=== PATIENT | male | born 1935 | race Hispanic/Latino ===

== ENCOUNTER 2017-02-28 15:35 | Inpatient (IN) | payer MEDICARE, MEDICAID ==
--- NOTE | 2017-02-28 16:15 | ED PDOC ---
Arrival/HPI - General Chief Complaint: Lower Extremity Problem/Injury Time Seen by Provider: 02/28/17 15:49 Historian: Patient, Spouse - History of Present Illness Narrative History of Present Illness (Text): 02/28/17 16:17 81-year-old male with past medical history of A. fib and TIA, presents with painless atraumtic bilateral leg swelling for the past one month as well as one- week history of atraumatic right knee pain and swelling. Patient reports no SOB , dyspnea, orthopnea, or chest pain. Otherwise: (-) diaphoresis, (-) recent travel / hospitalization, (-) h/o DVT, (-) h/o gout, (-) fever, (-) dizziness, ( -) syncope, (-) nausea, (-) vomiting, (-) calf swelling/pain, (-) neuro deficits. 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) - Renal Hx Renal Failure: Yes - Endocrine/Metabolic Hx Hypothyroidism: Yes - Hematological/Oncological Hx Blood Disorders: Yes (SHINGLES) Hx Shingles: Yes - Integumentary Hx Dermatological Disorder: Yes (MULTIPLE HEMATOMA AND BRUISING FROM USING BLOOD THINNERS) - Musculoskeletal/Rheumatological Hx Falls: No - Gastrointestinal Hx Gastrointestinal Disorders: No - Genitourinary/Gynecological Hx Genitourinary Disorders: Yes Hx Prostate Problems: Yes (BPH PHIMOSIS 03-28-24) Hx Urinary Tract Infection: Yes - Psychiatric Hx Psychophysiologic Disorder: (INSOMNIA) Hx Substance Use: No - Surgical History Hx Coronary Stent: Yes Hx Open Heart Surgery: Yes Hx Orthopedic Surgery: Yes - Anesthesia Hx Anesthesia Reactions: No Hx Malignant Hyperthermia: No - Suicidal Assessment Feels Threatened In Home Enviroment: No Family/Social History - Physician Review Nursing Documentation Reviewed: Yes Family/Social History: No Known Family HX Smoking Status: Never Smoked Hx Alcohol Use: Yes (social) Hx Substance Use: No Allergies/Home Meds Allergies/Adverse Reactions: Allergies No Known Allergies Allergy (Verified 12/21/15 16:34) Home Medications: Home Meds Medication Instructions Recorded Confirmed Furosemide [Lasix] 40 mg PO DAILY 03/29/14 02/28/17 Potassium Chloride 20 meq PO DAILY 12/21/15 02/28/17 Vit With Iron 1 tab PO DAILY 12/21/15 02/28/17 Review of Systems - Review of Systems Constitutional: Normal. absent: Fatigue, Weight Change, Fevers ENT: Normal, Sinus Congestion, Other (nasal congestion x 1 day). absent: Tinnitus, Sore Throat, Rhinorrhea Respiratory: Normal. absent: SOB, Cough, Sputum Cardiovascular: Normal. absent: Chest Pain, Palpitations, Edema, Orthopnea, Syncope Gastrointestinal: Normal. absent: Abdominal Pain, Stool Changes, Appetite Changes Musculoskeletal: Normal, Arthralgias (R knee pain). absent: Back Pain, Neck Pain Skin: Normal. absent: Rash, Pruritis, Skin Lesions Physical Exam Vital Signs Reviewed: Yes Vital Signs Temp Pulse Resp BP Pulse Ox 02/28/17 21:46 84 114/69 95 02/28/17 21:24 93 H 16 122/55 L 95 02/28/17 19:03 89 16 130/75 98 02/28/17 17:06 79 18 116/64 97 02/28/17 15:45 97.9 F 86 16 118/69 97 Temperature: Afebrile Blood Pressure: Normal Pulse: Regular Respiratory Rate: Normal Appearance: Positive for: Well-Appearing, Non-Toxic, Comfortable Pain Distress: Moderate Mental Status: Positive for: Alert and Oriented X 3 - Systems Exam Head: Present: Atraumatic, Normocephalic Pupils: Present: PERRL Extroacular Muscles: Present: EOMI Conjunctiva: Present: Normal Mouth: Present: Moist Mucous Membranes Pharnyx: Present: Normal Neck: Present: Normal Range of Motion. No: MIDLINE TENDERNESS Respiratory/Chest: Present: Clear to Auscultation, Good Air Exchange, Respiratory Distress. No: Accessory Muscle Use, Wheezes, Rales, Rhonchi Cardiovascular: Present: Regular Rate and Rhythm, Normal S1, S2. No: Murmurs Abdomen: Present: Normal Bowel Sounds. No: Tenderness, Distention Back: Present: Normal Inspection. No: Midline Tenderness Upper Extremity: Present: Normal Inspection, Normal ROM, NORMAL PULSES, Neurovascularly Intact, Capillary Refill < 2s. No: Edema, Tenderness Lower Extremity: Present: Edema (b/l LE 1+ pitting edema, L>R), NORMAL PULSES, Normal ROM, Neurovascularly Intact, Capillary Refill < 2 s, Other (R knee: hot to touch, mild erythema to the medial and lateral knee, limited ROM secondary to pain, +moderate effusion to the knee). No: CALF TENDERNESS, Tenderness, Erythema, Temperature Abnormalties Neurological: Present: GCS=15, CN II-XII Intact, Speech Normal, Motor Func Grossly Intact, Normal Sensory Function Skin: Present: Warm, Dry, Normal Color. No: Rashes Psychiatric: Present: Alert, Oriented x 3, Normal Insight, Normal Concentration Medical Decision Making ED Course and Treatment: 02/28/17 16:12 81-year-old male with past medical history of A. fib and TIA, presents with bilateral leg swelling for the past one month as well as one-week history of right knee pain and swelling. To r/o DVT, consider CHF exacerbation, dependent edema. R knee pain, r/o gout, consider septic joint vs inflammatory arthritis. Plan: -- Labs -- Urinalysis -- EKG -- CXR -- Morphine / Zofran -- Reassess and disposition -- US doppler -- Knee tap 02/28/17 18:01 EKG: SR at 78 bpm with PACs, LVH, (-) acute ST changes, as read by STEPHANIE. CXR : CM, mild venous congestion, otherwise NAD, as read by STEPHANIE Knee tap : Location : R knee. The wound was prepped and draped in the normal sterile fashion. Local anesthetic was used - lidocaine. Using 18 g needle 40 ml of yellow serosanguineous fluid was drained from the knee. Pressure dressing and rajan wrap applied. Patient tolerated the procedure well. Synovial fluid was sent for cell count, gram strain & culture, protein, crystals , uric acid, and glucose. US duplex of b/l LE : no DVT as per US tech. Labs reviewed : Hgb 11.7 / Hct 35.5, BNP 1250, Urinalysis shows UTI. Rocephin 1 g IV ordered, lasix 40 mg IV ordered. On re-evaluation, patient is resting comfortably in bed in no acute distress, breathing is easy and unlabored. Case discussed with Dr. Ward, agrees with plan for inpt admission. Patient and his were notified of plan for further care for inpt admission and agree with plan. 02/28/17 19:40 Synovial fluid analysis shows WBC 10,880, neurophils of 86, more likely inflammatory arthritis. Crystals, protein, gram stain/cx and glucose still pending. - Lab Interpretations Lab Results: 02/28/17 16:45 02/28/17 16:45 Lab Results 02/28/17 17:00: Fluid Type Synovial fluid, Synovial WBC 18098.0 H, Synovial RBC 5000.0 H, Synovial Neutrophils 86.4 H, Synovial Lymphocytes 13.6 H, Synov Monos/ Macrophage TEST NOT PERFORMED, Synovial Fluid Comment Lt. yellow color 02/28/17 16:55: Urine Color Yellow, Urine Appearance Clear, Urine pH 6.0, Ur Specific [place] 1.020, Urine Protein Negative, Urine Glucose (UA) Negative, Urine Ketones Negative, Urine Blood Moderate H, Urine Nitrate Negative, Urine Bilirubin Negative, Urine Urobilinogen 0.2, Ur Leukocyte Esterase Moderate H, Urine RBC 10 - 15, Urine WBC 20 - 25, Ur Epithelial Cells 0 - 2, Urine Bacteria Few 02/28/17 16:45: Sodium 137, Potassium 4.4, Chloride 98, Carbon Dioxide 29, Anion Gap 14, BUN 24 H, Creatinine 0.9, Est GFR ( Amer) > 60, Est GFR ( Non-Af Amer) > 60, Random Glucose 91, Calcium 9.3, Total Bilirubin 1.1, AST 20, ALT 16, Alkaline Phosphatase 79, Lactate Dehydrogenase 331 L, Total Creatine Kinase 35, Troponin I < 0.01 D, NT-Pro-B Natriuret Pep 1250 H, Total Protein 7.2, Albumin 3.9, Globulin 3.2, Albumin/Globulin Ratio 1.2 02/28/17 16:45: PT 12.6 H, INR 1.17 H, APTT 33.5 H 02/28/17 16:45: WBC 6.6, RBC 4.00, Hgb 11.7 L, Hct 35.5 L, MCV 88.8, MCH 29.3, MCHC 33.0, RDW 15.6 H, Plt Count 156, MPV 10.1, Gran % 57.9, Lymph % (Auto) 24.1 , [place] % (Auto) 12.0 H, Eos % (Auto) 5.5 H, Baso % (Auto) 0.5, Gran # 3.80, Lymph # 1.6, [place] # 0.8 H, Eos # 0.4, Baso # 0.03 - RAD Interpretation Radiology Orders: 02/28/17 16:20 CHEST TWO VIEWS (PA/LAT) [RAD] Stat DUPLEX LOWER EXTRM VEIN BILAT [US] Stat - Medication Orders Current Medication Orders: Albuterol/Ipratropium (Duoneb 3 Mg/0.5 Mg (3 Ml) Ud) 3 ml IH [id number] [facility]U Carvedilol (Coreg) 12.5 mg PO BID [facility] Clopidogrel Bisulfate (Plavix) 75 mg PO DAILY [facility] Famotidine (Pepcid) 40 mg PO HS [facility] Furosemide (Lasix) 40 mg IVP Q12 [facility] Ceftriaxone Sodium (Rocephin 1 Gram Ivpb) 1 gm in 100 mls @ 100 mls/hr IVPB DAILY [facility] PRN Reason: Protocol Metoprolol Tartrate (Lopressor) 25 mg PO BID [facility] Non-Formulary Medication (Vit With Iron) 1 tab PO DAILY [facility] Potassium Chloride (K-Dur 20 Meq Er Tab) 20 meq PO BRK [facility] Pregabalin (Lyrica) 50 mg PO BID [facility] Ropinirole HCl (Requip) 0.5 mg PO TID [facility] Discontinued Medications Furosemide (Lasix) 40 mg IVP STAT STA Stop: 02/28/17 17:48 Last Admin: 02/28/17 19:03 Dose: 40 mg Ceftriaxone Sodium (Rocephin 1 Gram Ivpb) 1 gm in 100 mls @ 200 mls/hr IVPB STAT STA PRN Reason: Protocol Stop: 02/28/17 18:13 Last Admin: 02/28/17 19:02 Dose: 200 mls/hr Lidocaine HCl (Lidocaine 2% 20ml Vial) 5 ml IJ ONCE STA Stop: 02/28/17 16:42 - PA / ADJUSTER PIANO ACTION / Resident Statement / has reviewed & agrees with the documentation as recorded. Disposition/Present on Arrival - Present on Arrival Any Indicators Present on Arrival: No History of DVT/PE: No History of Uncontrolled Diabetes: No Urinary Catheter: No History of Decub. Ulcer: No History Surgical Site Infection Following: CABG - Mediastinitis - Disposition Have Diagnosis and Disposition been Completed?: Yes Diagnosis: Urinary tract infection, Knee effusion, right, CHF exacerbation, Inflammatory arthritis Disposition: HOSPITALIZED Disposition Time: 19:00 Patient Plan: Admission (remote tele) Patient Problems: Current Active Problems Problem Status Onset CHF exacerbation Acute Inflammatory arthritis Acute Knee effusion, right Acute Urinary tract infection Acute Condition: STABLE
[2017-02-28] MEDS ORDERED: Lidocaine 2% Inj (20ml) IJ STA (16:41)
[2017-02-28 17:05] LABS: URINE BILIRUBIN NEGATIVE (NEGATIVE); URINE BLOOD MODERATE (NEGATIVE); URINE GLUCOSE (UA) NEGATIVE (NEGATIVE); URINE LEUKOCYTE ESTERASE MODERATE Leu/uL (NEGATIVE); URINE NITRATE NEGATIVE (NEGATIVE); URINE PROTEIN NEGATIVE mg/dL (<30 mg/dL); URINE UROBILINOGEN 0.2 E.U./dL (<1 E.U./dL)
[2017-02-28 17:06] LABS: BASO # 0.03 K/mm3 (0.0-2.0); BASO % 0.5 % (0.0-3.0); EOS # 0.4 (0.0-0.7); EOS % 5.5 % (1.5-5.0); GRAN % 57.9 % (50.0-68.0); HEMOGLOBIN 11.7 gm/dL (14.0-18.0); LYMPH # 1.6 (1.2-3.4); LYMPH % 24.1 % (22.0-35.0); MEAN CELL VOLUME 88.8 fL (80.0-105.0); MEAN CORPUSCULAR HEMOGLOBIN 29.3 pg (25.0-35.0); MEAN PLATELET VOLUME 10.1 fl (7.0-11.0); MONO # 0.8 (0.1-0.6); PLATELET COUNT 156 10^3/uL (120.0-450.0); RED CELL DISTRIBUTION WIDTH 15.6 % (11.5-14.5); WHITE BLOOD COUNT 6.6 10^3/ul (4.5-11.0)
[2017-02-28 17:16] LABS: ALB/GLOB RATIO 1.2 (1.1-1.8); ALBUMIN 3.9 g/dL (3.0-4.8); ALT/SGPT 16 U/L (7-56); AST/SGOT 20 U/L (15-59); BLOOD UREA NITROGEN 24 mg/dL (7-21); CALCIUM 9.3 mg/dL (8.4-10.5); GFR AFRICAN-AMERICAN > 60; GFR NON-AFRICAN AMERICAN > 60
[2017-02-28 17:27] LABS: URINE APPEARANCE CLEAR (CLEAR); URINE COLOR YELLOW (YELLOW)
[2017-02-28 17:27] LABS: B-TYPE NATRIURETIC PEPTIDE 1250 pg/mL (0-450)
[2017-02-28 17:33] LABS: INR 1.17 (0.93-1.08); PARTIAL THROMBOPLASTIN TIME 33.5 Seconds (23.7-30.8); PROTHROMBIN TIME 12.6 Seconds (9.9-11.8)
[2017-02-28 17:35] LABS: TROPONIN I < 0.01 ng/mL
[2017-02-28 17:41] LABS: URINE WBC 20 - 25 /hpf (0-6)
[2017-02-28 17:42] LABS: URINE BACTERIA FEW (NEG); URINE EPITHELIAL CELLS 0 - 2 /hpf (0-5)
[2017-02-28] MEDS ORDERED: cefTRIAXone 1 gm 1 GM/100 ML BAG IVPB STA (17:44)
[2017-02-28 18:07] LABS: FLUID TYPE SYNOVIAL FLUID
--- NOTE | 2017-02-28 18:24 | US ---
HISTORY: Leg pain and swelling. Evaluate for DVT PHYSICIAN(S): Robert Victor MD. TECHNIQUE: Duplex sonography and color-flow Doppler with graded compression were used to evaluate the deep venous systems of both lower extremities. The exam is limited by the patient's inability to cooperate or move. The tibial veins are not well seen. FINDINGS: The visualized deep venous systems of both lower extremities are sonographically normal and compressible. Normal wave forms and augmentation are seen. There is no sonographic evidence for deep venous thrombosis in the visualized segments of both lower extremities. There is a 1.7 x 5.9 cm complex fluid collection in the right popliteal fossa, consistent with a Lr's cyst. IMPRESSION: No sonographic evidence for deep venous thrombosis in the visualized segments of both lower extremities. Limited study.
[2017-02-28 18:38] LABS: SF GROSS APPEARANCE CLOUDY (CLEAR); SYNOVIAL FLUID COMMENT LT. YELLOW COLOR
[2017-02-28 22:56] VITALS: BMI 20.2
[2017-03-01] MEDS: Albuterol-Ipratrop 3 mg / 0.5 (3 ml) UD IH SCH ×3 (07:38→21:19)
[2017-03-01 07:51] LABS: HEMOGLOBIN 11.8 gm/dL (14.0-18.0); MEAN CELL VOLUME 88.1 fL (80.0-105.0); MEAN CORPUSCULAR HEMOGLOBIN 29.4 pg (25.0-35.0); MEAN CORPUSCULAR HGB CONC 33.3 g/dl (31.0-37.0); MEAN PLATELET VOLUME 10.6 fl (7.0-11.0); RBC 4.02 10^6/uL (3.5-6.1); RED CELL DISTRIBUTION WIDTH 15.4 % (11.5-14.5); WHITE BLOOD COUNT 5.9 10^3/ul (4.5-11.0)
[2017-03-01 07:58] LABS: BLOOD UREA NITROGEN 25 mg/dL (7-21); GFR AFRICAN-AMERICAN > 60; GFR NON-AFRICAN AMERICAN > 60; HDL CHOLESTEROL 53 mg/dL (29-60)
[2017-03-01 08:07] LABS: % IRON SATURATION 13 % (20-55); IRON 34 ug/dL (45-180); TOTAL IRON BINDING CAPACITY 269 ug/dL (261-462); TROPONIN I < 0.01 ng/mL
[2017-03-01 08:09] LABS: LDL CHOLESTEROL 32 mg/dL (0-129)
--- NOTE | 2017-03-01 08:34 | CP.PCM.CON ---
History of Present Illness - History of Present Illness History of Present Illness: RIGHT KNEE PAIN Review of Systems - Constitutional Constitutional: Fatigue, Weakness Past Patient History - Infectious Disease Hx of Infectious Diseases: None - Tetanus Immunizations Tetanus Immunization: Unknown - Past Medical History & Family History Past Medical History?: Yes - Past Social History Smoking Status: Never Smoked - CARDIAC Hx Cardiac Disorders: Yes Hx Congestive Heart Failure: Yes Hx Hypertension: Yes - PULMONARY Hx Respiratory Disorders: No - NEUROLOGICAL HX Cerebrovascular Accident: Yes - HEENT Hx 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) - RENAL Hx Renal Failure: Yes - ENDOCRINE/METABOLIC Hx Hypothyroidism: Yes - HEMATOLOGICAL/ONCOLOGICAL Hx Blood Disorders: Yes (SHINGLES) Hx Shingles: Yes - INTEGUMENTARY Hx Dermatological Problems: Yes (MULTIPLE HEMATOMA AND BRUISING FROM USING BLOOD THINNERS) - MUSCULOSKELETAL/RHEUMATOLOGICAL Hx Falls: No - GASTROINTESTINAL Hx Gastrointestinal Disorders: No - GENITOURINARY/GYNECOLOGICAL Hx Genitourinary Disorders: Yes Hx Prostate Problems: Yes (BPH PHIMOSIS 03-28-24) Hx Urinary Tract Infection: Yes - PSYCHIATRIC Hx Psychophysiologic Disorder: (INSOMNIA) Hx Substance Use: No - SURGICAL HISTORY Hx Coronary Stent: Yes Hx Open Heart Surgery: Yes Hx Orthopedic Surgery: Yes - ANESTHESIA Hx Anesthesia Reactions: No Hx Malignant Hyperthermia: No Meds Allergies/Adverse Reactions: Allergies Allergy/AdvReac Type Severity Reaction Status Date / Time No Known Allergies Allergy Verified 12/21/15 16:34 - Medications Medications: Current Medications Albuterol/Ipratropium (Duoneb 3 Mg/0.5 Mg (3 Ml) Ud) 3 ml [id number] [facility] Last Admin: 03/01/17 07:38 Dose: 3 ml Carvedilol (Coreg) 12.5 mg PO BID [facility] Clopidogrel Bisulfate (Plavix) 75 mg PO DAILY [facility] Famotidine (Pepcid) 40 mg PO HS [facility] Furosemide (Lasix) 40 mg IVP Q12 [facility] Ceftriaxone Sodium (Rocephin 2 Gm Ivpb) 2 gm in 100 mls @ 100 mls/hr IVPB DAILY [facility] PRN Reason: Protocol Stop: 03/10/17 10:01 Vancomycin HCl (Vancomycin 1gm) 1 gm in 250 mls @ 167 mls/hr IVPB Q12H [facility] PRN Reason: Protocol Stop: 03/10/17 08:31 Metoprolol Tartrate (Lopressor) 25 mg PO BID [facility] Multivitamins/Minerals (Therapeutic-M Tab) 1 tab PO DAILY [facility] Potassium Chloride (K-Dur 20 Meq Er Tab) 20 meq PO BRK [facility] Pregabalin (Lyrica) 50 mg PO BID [facility] Ropinirole HCl (Requip) 0.5 mg PO TID [facility] Physical Exam - Constitutional Appears: Well (RIGHT KNEE WITH TENDERNESS ) - Head Exam Head Exam: ATRAUMATIC, NORMAL INSPECTION, NORMOCEPHALIC - Eye Exam Eye Exam: EOMI, Normal appearance, PERRL Pupil Exam: NORMAL ACCOMODATION, PERRL - ENT Exam ENT Exam: Mucous Membranes Moist, Normal Exam - Neck Exam Neck exam: Positive for: Normal Inspection - Respiratory Exam Respiratory Exam: Clear to Auscultation Bilateral, NORMAL BREATHING PATTERN - Cardiovascular Exam Cardiovascular Exam: REGULAR RHYTHM - GI/Abdominal Exam GI & Abdominal Exam: Normal Bowel Sounds, Soft. absent: Tenderness - Rectal Exam Rectal Exam: NORMAL INSPECTION - Exam Exam: Circumcision, NORMAL INSPECTION External exam: NORMAL EXTERNAL EXAM Speculum exam: NORMAL SPECULUM EXAM Bimanual exam: NORMAL BIMANUAL EXAM - Extremities Exam Extremities exam: Positive for: normal inspection - Back Exam Back exam: NORMAL INSPECTION - Neurological Exam Neurological exam: Alert, CN II-XII Intact, Normal Gait, Oriented x3, Reflexes Normal - Psychiatric Exam Psychiatric exam: Normal Affect, Normal Mood - Skin Skin Exam: Dry, Intact, Normal Color, Warm Results - Vital Signs Recent Vital Signs: Last Vital Signs Temp 98.0 F 02/28/17 22:11 Pulse 72 03/01/17 07:41 Resp 18 02/28/17 22:11 BP 131/62 02/28/17 22:11 Pulse Ox 95 02/28/17 21:46 - Labs Result Diagrams: 03/01/17 07:00 03/01/17 07:00 Labs: Laboratory Results - last 24 hr 03/01/17 03/01/17 03/01/17 07:00 07:00 07:00 WBC 5.9 RBC 4.02 Hgb 11.8 L Hct 35.4 L MCV 88.1 MCH 29.4 MCHC 33.3 RDW 15.4 H Plt Count 168 MPV 10.6 Sodium 137 Potassium 3.4 L Chloride 99 Carbon Dioxide 29 Anion Gap 12 BUN 25 H Creatinine 0.9 Est GFR ( Amer) > 60 Est GFR (Non-Af Amer) > 60 Random Glucose 96 Calcium 9.0 Iron 34 L TIBC 269 % Saturation 13 L Lactate Dehydrogenase 253 L Total Creatine Kinase 29 L Troponin I < 0.01 Triglycerides 47 Cholesterol 112 L LDL Cholesterol Direct 32 HDL Cholesterol 53 Assessment & Plan (1) CHF exacerbation Status: Acute (2) Inflammatory arthritis Status: Acute (3) Knee effusion, right Status: Acute (4) Urinary tract infection Status: Acute (5) Altered mental status Status: Acute (6) Atrial fibrillation Status: Acute - Assessment and Plan (Free Text) Assessment: RIGHT KNEE EFFUSION DOUBT SEPTIC JOINT AWAITING JOINT FLUID CULTURES TX WITH VANCO/ROCEP - Date & Time Date: 03/01/17 Time: 08:15
[2017-03-01] MEDS: Potassium Chloride 20 mEq ER Tab PO SCH (09:28)
[2017-03-01] MEDS: cefTRIAXone 2 GM IN NS 2 GM/100 ML BAG IVPB SCH (09:31)
--- NOTE | 2017-03-01 09:31 | CP.PCM.CON ---
History of Present Illness - History of Present Illness History of Present Illness: 81 year old male with Pmx of CAD, S/p cabg, three vessel RAMIREZ to LAD. SVG to OM ! and OM2 in 1997. PTCa in [facility] of Cx /om2 in 05/14/2012, now being F?u at [facility] came with c/o leg pain, denies chest pain, SOB, but C/o feeling cold Review of Systems - Constitutional Constitutional: As Per HPI - EENT Eyes: As Per HPI Ears: As Per HPI Nose/Mouth/Throat: As Per HPI - Cardiovascular Cardiovascular: As Per HPI - Respiratory Respiratory: As Per HPI - Gastrointestinal Gastrointestinal: As Per HPI Past Patient History - Infectious Disease Hx of Infectious Diseases: None - Tetanus Immunizations Tetanus Immunization: Unknown - Past Medical History & Family History Past Medical History?: Yes - Past Social History Smoking Status: Never Smoked - CARDIAC Hx Cardiac Disorders: Yes Hx Congestive Heart Failure: Yes Hx Hypertension: Yes - PULMONARY Hx Respiratory Disorders: No - NEUROLOGICAL HX Cerebrovascular Accident: Yes - HEENT Hx 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) - RENAL Hx Renal Failure: Yes - ENDOCRINE/METABOLIC Hx Hypothyroidism: Yes - HEMATOLOGICAL/ONCOLOGICAL Hx Blood Disorders: Yes (SHINGLES) Hx Shingles: Yes - INTEGUMENTARY Hx Dermatological Problems: Yes (MULTIPLE HEMATOMA AND BRUISING FROM USING BLOOD THINNERS) - MUSCULOSKELETAL/RHEUMATOLOGICAL Hx Falls: No - GASTROINTESTINAL Hx Gastrointestinal Disorders: No - GENITOURINARY/GYNECOLOGICAL Hx Genitourinary Disorders: Yes Hx Prostate Problems: Yes (BPH PHIMOSIS 03-28-24) Hx Urinary Tract Infection: Yes - PSYCHIATRIC Hx Psychophysiologic Disorder: (INSOMNIA) Hx Substance Use: No - SURGICAL HISTORY Hx Coronary Stent: Yes Hx Open Heart Surgery: Yes Hx Orthopedic Surgery: Yes - ANESTHESIA Hx Anesthesia Reactions: No Hx Malignant Hyperthermia: No Meds Allergies/Adverse Reactions: Allergies Allergy/AdvReac Type Severity Reaction Status Date / Time No Known Allergies Allergy Verified 12/21/15 16:34 - Medications Medications: Current Medications Albuterol/Ipratropium (Duoneb 3 Mg/0.5 Mg (3 Ml) Ud) 3 ml IH [id number] [facility] Last Admin: 03/01/17 07:38 Dose: 3 ml Carvedilol (Coreg) 12.5 mg PO BID [facility] Clopidogrel Bisulfate (Plavix) 75 mg PO DAILY [facility] Famotidine (Pepcid) 40 mg PO HS [facility] Furosemide (Lasix) 40 mg IVP Q12 [facility] Ceftriaxone Sodium (Rocephin 2 Gm Ivpb) 2 gm in 100 mls @ 100 mls/hr IVPB DAILY [facility] PRN Reason: Protocol Stop: 03/10/17 10:01 Vancomycin HCl (Vancomycin 1gm) 1 gm in 250 mls @ 167 mls/hr IVPB Q12H [facility] PRN Reason: Protocol Stop: 03/10/17 08:31 Metoprolol Tartrate (Lopressor) 25 mg PO BID [facility] Multivitamins/Minerals (Therapeutic-M Tab) 1 tab PO DAILY [facility] Potassium Chloride (K-Dur 20 Meq Er Tab) 20 meq PO BRK [facility] Pregabalin (Lyrica) 50 mg PO BID [facility] Ropinirole HCl (Requip) 0.5 mg PO TID [facility] Results - Vital Signs Recent Vital Signs: Last Vital Signs Temp 98.0 F 02/28/17 22:11 Pulse 72 03/01/17 07:41 Resp 18 02/28/17 22:11 BP 131/62 02/28/17 22:11 Pulse Ox 95 02/28/17 21:46 - Labs Result Diagrams: 03/01/17 07:00 03/01/17 07:00 Labs: Laboratory Results - last 24 hr 03/01/17 03/01/17 03/01/17 07:00 07:00 07:00 WBC 5.9 RBC 4.02 Hgb 11.8 L Hct 35.4 L MCV 88.1 MCH 29.4 MCHC 33.3 RDW 15.4 H Plt Count 168 MPV 10.6 Sodium 137 Potassium 3.4 L Chloride 99 Carbon Dioxide 29 Anion Gap 12 BUN 25 H Creatinine 0.9 Est GFR ( Amer) > 60 Est GFR (Non-Af Amer) > 60 Random Glucose 96 Calcium 9.0 Iron 34 L TIBC 269 % Saturation 13 L Lactate Dehydrogenase 253 L Total Creatine Kinase 29 L Troponin I < 0.01 Triglycerides 47 Cholesterol 112 L LDL Cholesterol Direct 32 HDL Cholesterol 53 TSH 3rd Generation 03/01/17 07:00 WBC RBC Hgb Hct MCV MCH MCHC RDW Plt Count MPV Sodium Potassium Chloride Carbon Dioxide Anion Gap BUN Creatinine Est GFR ( Amer) Est GFR (Non-Af Amer) Random Glucose Calcium Iron TIBC % Saturation Lactate Dehydrogenase Total Creatine Kinase Troponin I Triglycerides Cholesterol LDL Cholesterol Direct HDL Cholesterol TSH 3rd Generation 2.05 Assessment & Plan - Assessment and Plan (Free Text) Assessment: 81 old male with pMhx of CAD, S/P CABG..1997, S/p PTCA 05/14/2012 admitted with leg pain. last echo .. 11/29/2015 Ef-50% moderate to sever AR trace to Mild Mr Moderate Tr RVSp-36 mmof HgModerate PI. Plan: aggressive medical treatment, no coronary intervention increase nutriotional support Diuretic Beta abbe JUAN/ PVR will F/u thx. - Date & Time Date: 03/01/17 Time: 08:00
[2017-03-01] MEDS: Multivitamin With Minerals Tab PO SCH (09:32)
[2017-03-01] MEDS: Vancomycin 1gm in NS 250ml 1 GM/250 ML BAG IVPB SCH ×2 (09:33→21:52)
[2017-03-01] MEDS ORDERED: cefTRIAXone 1 gm 1 GM/100 ML BAG IVPB SCH (10:00)
--- NOTE | 2017-03-01 10:01 | RAD ---
HISTORY: LE edema COMPARISON: 08/14/2016 TECHNIQUE: Chest PA and lateral FINDINGS: LUNGS: No active pulmonary disease. PLEURA: No significant pleural effusion identified. No pneumothorax apparent. CARDIOVASCULAR: Normal. OSSEOUS STRUCTURES: Sternal wires VISUALIZED UPPER ABDOMEN: Normal. OTHER FINDINGS: None. IMPRESSION: No active disease.
--- NOTE | 2017-03-01 10:31 | PQF CHF ---
This form is a permanent part of the medical record Dr. Blair, Please specify type and severity of CHF in your documentation. Clarification of your documentation is requested to better reflect the severity of illness and intensity of treatment of your patient. Indicators present [] Diagnosis of CHF and/or history of CHF [] BNP > 200 [] Imaging Finding of Pulmonary Edema /Pleural Effusions [] Fluid/Volume Overload [] Pitting edema [] Ejection Fraction < 40% (Indicative of Systolic Heart Failure) [] Ejection Fraction > 40% (Indicative of Diastolic Heart Failure) [] Dyspnea / Orthopenea / Paroxysmal Nocturnal Dyspnea [] Other: Location in the medical record that reflects the above clinical findings: [] Treatment Provided: [] PHYSICIAN'S RESPONSE Based on your medical judgment of the clinical indicators outlined above, are you treating this patient for a known or suspected: [] Acute CHF [] Systolic [] Diastolic [] Combined [] Chronic CHF [] Systolic [] Diastolic [] Combined [] Acute on Chronic CHF []Systolic [] Diastolic [] Combined [] CHF due hypertension [] Acute systolic []Chronic systolic [] Acute/ chronic systolic [] Other, please indicate: [] [] If Unable to Determine, please check the box, sign and date. Present On Admission (POA) Indicator: [] Present at the time of admission [] Not present at the time of admission [] Clinically Undetermined In responding to this query, please exercise your independent professional judgment. The fact that a question is asked does not imply that any particular answer is desired or expected. Thank you for your clarification on this documentation. 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
--- NOTE | 2017-03-01 11:33 | CARD ---
APPROVED REPORT EKG Measurement Heart [id number] <Conclusion> Sinus rhythm with premature atrial complexes Left ventricular hypertrophy Poor R Progression V1-V3.
--- NOTE | 2017-03-01 12:02 | US ---
PROCEDURE: Lower extremity JUAN exam HISTORY: Peripheral vascular disease with pain and claudication. Previous smoker. PHYSICIAN(S): Robert Victor MD. FINDINGS: The exam is limited by calcified vessels distally. Resting ABIs are not reliable. The brachial systolic pressures are symmetric. The high thigh pressures are noncompressible. The high thigh PVR waveforms are normal and symmetric. The calf PVR waveforms augment normally. The calf PVR waveforms are relatively normal and symmetric. The ankle and metatarsal waveforms are moderately to severely blunted. This is consistent with bilateral trifurcation and tibial occlusive disease. IMPRESSION: 1. Limited study due to calcification. 2. Bilateral trifurcation and tibial occlusive disease.
[2017-03-01 14:58] LABS: FOLATE > 20.0 ng/mL
--- NOTE | 2017-03-01 17:22 | CP.PCM.CON ---
History of Present Illness - History of Present Illness History of Present Illness: 81-year-old male with past medical history of A. fib and TIA, presents with painless atraumtic bilateral leg swelling for the past one month as well as one- week history of atraumatic right knee pain and swelling. Patient reports no SOB , dyspnea, orthopnea, or chest pain. Otherwise: (-) diaphoresis, (-) recent travel / hospitalization, (-) h/o DVT, (-) h/o gout, (-) fever, (-) dizziness, ( -) syncope, (-) nausea, (-) vomiting, (-) calf swelling/pain, (-) neuro deficits. Review of Systems - Constitutional Constitutional: Daytime Sleepiness, Fatigue, Snoring, Sleep Apnea. absent: Headache - EENT Eyes: absent: Diplopia, Discharge, Dry Eye Ears: absent: Ear Discharge, Ear Pain Nose/Mouth/Throat: absent: Bleeding Gums, Change in Voice, Dysphagia, Halitosis - Cardiovascular Cardiovascular: absent: Chest Pain, Claudication, Diaphoresis, Dyspnea, Edema - Respiratory Respiratory: Cough, Dyspnea, Dyspnea on Exertion, Wheezing, Snoring. absent: Hemoptysis - Gastrointestinal Gastrointestinal: Belching. absent: Bloating, Change in Bowel Habits, Change in Stool Character - Musculoskeletal Musculoskeletal: Limited Range of Motion, Myalgias - Neurological Neurological: Burning Sensations, Numbness. absent: Convulsions, Dizziness - Psychiatric Psychiatric: Anxiety - Hematologic/Lymphatic Hematologic: absent: Easy Bleeding, Easy Bruising Past Patient History - Infectious Disease Hx of Infectious Diseases: None - Tetanus Immunizations Tetanus Immunization: Unknown - Past Medical History & Family History Past Medical History?: Yes - Past Social History Smoking Status: Never Smoked Alcohol: None Drugs: Denies Home Situation {Lives}: With Family Domestic Violence: Negative - CARDIAC Hx Cardiac Disorders: Yes (cad ) Hx Congestive Heart Failure: Yes Hx Hypertension: Yes - PULMONARY Hx Respiratory Disorders: No - NEUROLOGICAL HX Cerebrovascular Accident: Yes - HEENT 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) - RENAL Hx Renal Failure: Yes - ENDOCRINE/METABOLIC Hx Hypothyroidism: Yes - HEMATOLOGICAL/ONCOLOGICAL Hx Blood Disorders: Yes (SHINGLES) Hx Shingles: Yes - INTEGUMENTARY Hx Dermatological Problems: Yes (MULTIPLE HEMATOMA AND BRUISING FROM USING BLOOD THINNERS) - MUSCULOSKELETAL/RHEUMATOLOGICAL Hx Falls: No - GASTROINTESTINAL Hx Gastrointestinal Disorders: No - GENITOURINARY/GYNECOLOGICAL Hx Genitourinary Disorders: Yes Hx Prostate Problems: Yes (BPH PHIMOSIS 03-28-24) Hx Urinary Tract Infection: Yes - PSYCHIATRIC Hx Psychophysiologic Disorder: (INSOMNIA) Hx Substance Use: No - SURGICAL HISTORY Hx Coronary Stent: Yes Hx Open Heart Surgery: Yes Hx Orthopedic Surgery: Yes - ANESTHESIA Hx Anesthesia Reactions: No Hx Malignant Hyperthermia: No Meds Allergies/Adverse Reactions: Allergies Allergy/AdvReac Type Severity Reaction Status Date / Time No Known Allergies Allergy Verified 12/21/15 16:34 - Medications Medications: Current Medications Albuterol/Ipratropium (Duoneb 3 Mg/0.5 Mg (3 Ml) Ud) 3 ml IH [id number] [facility] Last Admin: 03/01/17 13:27 Dose: Not Given Carvedilol (Coreg) 12.5 mg PO BID [facility] Last Admin: 03/01/17 17:02 Dose: Not Given Clopidogrel Bisulfate (Plavix) 75 mg PO DAILY [facility] Last Admin: 03/01/17 09:30 Dose: 75 mg Famotidine (Pepcid) 40 mg PO HS [facility] Furosemide (Lasix) 40 mg IVP Q12 [facility] Last Admin: 03/01/17 09:28 Dose: 40 mg Ceftriaxone Sodium (Rocephin 2 Gm Ivpb) 2 gm in 100 mls @ 100 mls/hr IVPB DAILY [facility] PRN Reason: Protocol Stop: 03/10/17 10:01 Last Admin: 03/01/17 09:31 Dose: 100 mls/hr Vancomycin HCl (Vancomycin 1gm) 1 gm in 250 mls @ 167 mls/hr IVPB Q12H [facility] PRN Reason: Protocol Stop: 03/10/17 08:31 Last Admin: 03/01/17 09:33 Dose: 167 mls/hr Metoprolol Tartrate (Lopressor) 25 mg PO BID [facility] Last Admin: 03/01/17 17:03 Dose: Not Given Multivitamins/Minerals (Therapeutic-M Tab) 1 tab PO DAILY [facility] Last Admin: 03/01/17 09:32 Dose: 1 tab Potassium Chloride (K-Dur 20 Meq Er Tab) 20 meq PO BRK [facility] Last Admin: 03/01/17 09:28 Dose: 20 meq Pregabalin (Lyrica) 50 mg PO BID [facility] Last Admin: 03/01/17 17:03 Dose: 50 mg Ropinirole HCl (Requip) 0.5 mg PO TID [facility] Last Admin: 03/01/17 17:03 Dose: 0.5 mg Physical Exam - Constitutional Appears: Well - Head Exam Head Exam: ATRAUMATIC, NORMAL INSPECTION, NORMOCEPHALIC - ENT Exam ENT Exam: Mucous Membranes Moist, Normal Exam - Neck Exam Neck exam: Positive for: Normal Inspection - Respiratory Exam Respiratory Exam: Clear to Auscultation Bilateral, NORMAL BREATHING PATTERN - Cardiovascular Exam Cardiovascular Exam: REGULAR RHYTHM - GI/Abdominal Exam GI & Abdominal Exam: Normal Bowel Sounds, Soft. absent: Tenderness - Rectal Exam Rectal Exam: NORMAL INSPECTION - Neurological Exam Neurological exam: Oriented x3 - Psychiatric Exam Psychiatric exam: Agitated, Anxious Results - Vital Signs Recent Vital Signs: Last Vital Signs Temp 97.6 F 03/01/17 12:00 Pulse 64 03/01/17 14:00 Resp 18 03/01/17 12:00 BP 137/49 L 03/01/17 12:00 Pulse Ox 97 03/01/17 12:00 - Labs Result Diagrams: 03/01/17 07:00 03/01/17 07:00 Labs: Laboratory Results - last 24 hr 03/01/17 03/01/17 03/01/17 07:00 07:00 07:00 WBC RBC Hgb Hct MCV MCH MCHC RDW Plt Count MPV ESR Sodium 137 Potassium 3.4 L Chloride 99 Carbon Dioxide 29 Anion Gap 12 BUN 25 H Creatinine 0.9 Est GFR ( Amer) > 60 Est GFR (Non-Af Amer) > 60 Random Glucose 96 Hemoglobin A1c 6.3 Calcium 9.0 Iron 34 L TIBC 269 % Saturation 13 L Lactate Dehydrogenase 253 L Total Creatine Kinase 29 L Troponin I < 0.01 C-React Prot High Sens Triglycerides 47 Cholesterol 112 L LDL Cholesterol Direct 32 HDL Cholesterol 53 Vitamin B12 248 Folate > 20.0 Procalcitonin TSH 3rd Generation 03/01/17 03/01/17 03/01/17 07:00 07:00 07:00 WBC 5.9 RBC 4.02 Hgb 11.8 L Hct 35.4 L MCV 88.1 MCH 29.4 MCHC 33.3 RDW 15.4 H Plt Count 168 MPV 10.6 ESR 54 H Sodium Potassium Chloride Carbon Dioxide Anion Gap BUN Creatinine Est GFR ( Amer) Est GFR (Non-Af Amer) Random Glucose Hemoglobin A1c Calcium Iron TIBC % Saturation Lactate Dehydrogenase Total Creatine Kinase Troponin I C-React Prot High Sens Triglycerides Cholesterol LDL Cholesterol Direct HDL Cholesterol Vitamin B12 Folate Procalcitonin TSH 3rd Generation 2.05 03/01/17 03/01/17 07:00 07:00 WBC RBC Hgb Hct MCV MCH MCHC RDW Plt Count MPV ESR Sodium Potassium Chloride Carbon Dioxide Anion Gap BUN Creatinine Est GFR ( Amer) Est GFR (Non-Af Amer) Random Glucose Hemoglobin A1c Calcium Iron TIBC % Saturation Lactate Dehydrogenase Total Creatine Kinase Troponin I C-React Prot High Sens > 15.00 H Triglycerides Cholesterol LDL Cholesterol Direct HDL Cholesterol Vitamin B12 Folate Procalcitonin 0.05 L TSH 3rd Generation - Imaging and Cardiology Venous US Additional comment: no DVT, has PVD Assessment & Plan (1) RLS (restless legs syndrome) Status: Acute Comment: requip and neurintin (2) Inflammatory arthritis Assessment and Plan: ibiotic Status: Acute (3) Knee effusion, right Assessment and Plan: orthpedic consult Status: Acute (4) Atrial fibrillation Assessment and Plan: metoprolol Status: Acute
[2017-03-02] MEDS: Albuterol-Ipratrop 3 mg / 0.5 (3 ml) UD IH SCH ×4 (02:00→20:56)
[2017-03-02 06:14] LABS: HEMOGLOBIN 12.5 gm/dL (14.0-18.0); MEAN CELL VOLUME 88.5 fL (80.0-105.0); MEAN CORPUSCULAR HEMOGLOBIN 29.4 pg (25.0-35.0); MEAN CORPUSCULAR HGB CONC 33.2 g/dl (31.0-37.0); MEAN PLATELET VOLUME 10.2 fl (7.0-11.0); RBC 4.25 10^6/uL (3.5-6.1); RED CELL DISTRIBUTION WIDTH 15.2 % (11.5-14.5); WHITE BLOOD COUNT 5.5 10^3/ul (4.5-11.0)
[2017-03-02 06:27] LABS: ALB/GLOB RATIO 1.1 (1.1-1.8); ALBUMIN 3.8 g/dL (3.0-4.8); ALT/SGPT 24 U/L (7-56); AST/SGOT 24 U/L (15-59); BLOOD UREA NITROGEN 25 mg/dL (7-21); CALCIUM 9.3 mg/dL (8.4-10.5); GFR AFRICAN-AMERICAN > 60; GFR NON-AFRICAN AMERICAN > 60
[2017-03-02] MEDS: Potassium Chloride 20 mEq ER Tab PO SCH (08:42)
[2017-03-02] MEDS: Vancomycin 1gm in NS 250ml 1 GM/250 ML BAG IVPB SCH (08:42)
[2017-03-02] MEDS: Multivitamin With Minerals Tab PO SCH (10:53)
[2017-03-02] MEDS: cefTRIAXone 2 GM IN NS 2 GM/100 ML BAG IVPB SCH (10:54)
--- NOTE | 2017-03-02 11:17 | CP.PCM.PN ---
Subjective - Date & Time of Evaluation Date of Evaluation: 03/02/17 Time of Evaluation: 09:15 - Subjective Subjective: DOING BETTER Objective - Vital Signs/Intake and Output Vital Signs (last 24 hours): Temp Pulse Resp BP Pulse Ox 98.2 F 69 19 142/65 96 03/02/17 07:49 03/02/17 10:53 03/02/17 07:49 03/02/17 10:53 03/02/17 07:49 Intake and Output: 03/02/17 03/02/17 06:59 18:59 Intake Total 420 120 Output Total 1200 Balance 420 -1080 - Medications Medications: Current Medications Albuterol/Ipratropium (Duoneb 3 Mg/0.5 Mg (3 Ml) Ud) 3 ml IH [id number] [facility] Last Admin: 03/02/17 07:56 Dose: Not Given Carvedilol (Coreg) 12.5 mg PO BID [facility] Last Admin: 03/02/17 10:53 Dose: 12.5 mg Clopidogrel Bisulfate (Plavix) 75 mg PO DAILY [facility] Last Admin: 03/02/17 10:52 Dose: 75 mg Famotidine (Pepcid) 40 mg PO HS [facility] Last Admin: 03/01/17 21:50 Dose: 40 mg Furosemide (Lasix) 40 mg IVP Q12 [facility] Last Admin: 03/02/17 10:51 Dose: 40 mg Metoprolol Tartrate (Lopressor) 25 mg PO BID [facility] Last Admin: 03/02/17 10:50 Dose: 25 mg Multivitamins/Minerals (Therapeutic-M Tab) 1 tab PO DAILY [facility] Last Admin: 03/02/17 10:53 Dose: 1 tab Potassium Chloride (K-Dur 20 Meq Er Tab) 20 meq PO BRK [facility] Last Admin: 03/02/17 08:42 Dose: 20 meq Pregabalin (Lyrica) 50 mg PO BID [facility] Last Admin: 03/02/17 10:53 Dose: 50 mg Ropinirole HCl (Requip) 0.5 mg PO TID [facility] Last Admin: 03/02/17 11:00 Dose: 0.5 mg - Labs Labs: 03/02/17 06:00 03/02/17 06:00 PT 12.6 Seconds (9.9-11.8) H 02/28/17 16:45 INR 1.17 (0.93-1.08) H 02/28/17 16:45 APTT 33.5 Seconds (23.7-30.8) H 02/28/17 16:45 - Constitutional Appears: Well - Head Exam Head Exam: ATRAUMATIC, NORMAL INSPECTION, NORMOCEPHALIC - Eye Exam Eye Exam: EOMI, Normal appearance, PERRL Pupil Exam: NORMAL ACCOMODATION, PERRL - ENT Exam ENT Exam: Mucous Membranes Moist, Normal Exam - Neck Exam Neck Exam: Full ROM, Normal Inspection. absent: Lymphadenopathy - Respiratory Exam Respiratory Exam: Clear to Ausculation Bilateral, NORMAL BREATHING PATTERN - Cardiovascular Exam Cardiovascular Exam: REGULAR RHYTHM, +S1, +S2. absent: Murmur - GI/Abdominal Exam GI & Abdominal Exam: Soft, Normal Bowel Sounds. absent: Tenderness - Rectal Exam Rectal Exam: NORMAL INSPECTION - Exam Exam: Circumcision, NORMAL INSPECTION External exam: NORMAL EXTERNAL EXAM Speculum exam: NORMAL SPECULUM EXAM Bimanual exam: NORMAL BIMANUAL EXAM - Extremities Exam Extremities Exam: Full ROM, Normal Capillary Refill, Normal Inspection. absent : Joint Swelling, Pedal Edema - Back Exam Back Exam: NORMAL INSPECTION - Neurological Exam Neurological Exam: Alert, Awake, CN II-XII Intact, Normal Gait, Oriented x3 - Psychiatric Exam Psychiatric exam: Normal Affect, Normal Mood - Skin Skin Exam: Dry, Intact, Normal Color, Warm Assessment and Plan (1) CHF exacerbation Status: Acute (2) Inflammatory arthritis Status: Acute (3) Knee effusion, right Status: Acute (4) Urinary tract infection Status: Acute (5) Altered mental status Status: Acute (6) Atrial fibrillation Status: Acute (7) Pseudogout Status: Acute - Assessment and Plan (Free Text) Plan: KNEE CULTURES NEG PSEUDOGOUT DC ABX NO FURTHER ABX
--- NOTE | 2017-03-02 11:21 | CP.PCM.CON ---
<Jenny Cruz - Last Filed: 03/02/17 11:17> History of Present Illness - History of Present Illness History of Present Illness: General Surgery Dr. Hennessy 81 y/o M w/ PMHx of CAD, CABG, AFib, CVA was admitted for CHF exacerbation, UTI , and Aseptic joint. Surgery was consulted for left inguinal hernia. Pt admits to having hernia for 20+yrs. Pt denies having any complications from the hernia. Pt denies pain, F/C, N/V, D/C. Pt does not want any surgical intervention at this time. Review of Systems - Review of Systems All systems: reviewed and no additional remarkable complaints except (as per HPI ) Past Patient History - Infectious Disease Hx of Infectious Diseases: None - Tetanus Immunizations Tetanus Immunization: Unknown - Past Medical History & Family History Past Medical History?: Yes - Past Social History Smoking Status: Never Smoked Alcohol: None Drugs: Denies Home Situation {Lives}: With Family Domestic Violence: Negative - CARDIAC Hx Cardiac Disorders: Yes (cad ) Hx Congestive Heart Failure: Yes Hx Hypertension: Yes - PULMONARY Hx Respiratory Disorders: No - NEUROLOGICAL HX Cerebrovascular Accident: Yes - HEENT 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) - RENAL Hx Renal Failure: Yes - ENDOCRINE/METABOLIC Hx Hypothyroidism: Yes - HEMATOLOGICAL/ONCOLOGICAL Hx Blood Disorders: Yes (SHINGLES) Hx Shingles: Yes - INTEGUMENTARY Hx Dermatological Problems: Yes (MULTIPLE HEMATOMA AND BRUISING FROM USING BLOOD THINNERS) - MUSCULOSKELETAL/RHEUMATOLOGICAL Hx Falls: No - GASTROINTESTINAL Hx Gastrointestinal Disorders: No - GENITOURINARY/GYNECOLOGICAL Hx Genitourinary Disorders: Yes Hx Prostate Problems: Yes (BPH PHIMOSIS 03-28-24) Hx Urinary Tract Infection: Yes - PSYCHIATRIC Hx Psychophysiologic Disorder: (INSOMNIA) Hx Substance Use: No - SURGICAL HISTORY Hx Coronary Stent: Yes Hx Open Heart Surgery: Yes Hx Orthopedic Surgery: Yes - ANESTHESIA Hx Anesthesia Reactions: No Hx Malignant Hyperthermia: No Meds Allergies/Adverse Reactions: Allergies Allergy/AdvReac Type Severity Reaction Status Date / Time No Known Allergies Allergy Verified 12/21/15 16:34 - Medications Medications: Current Medications Albuterol/Ipratropium (Duoneb 3 Mg/0.5 Mg (3 Ml) Ud) 3 ml IH [id number] [facility] Last Admin: 03/02/17 07:56 Dose: Not Given Carvedilol (Coreg) 12.5 mg PO BID [facility] Last Admin: 03/02/17 10:53 Dose: 12.5 mg Clopidogrel Bisulfate (Plavix) 75 mg PO DAILY [facility] Last Admin: 03/02/17 10:52 Dose: 75 mg Famotidine (Pepcid) 40 mg PO HS [facility] Last Admin: 03/01/17 21:50 Dose: 40 mg Furosemide (Lasix) 40 mg IVP Q12 [facility] Last Admin: 03/02/17 10:51 Dose: 40 mg Metoprolol Tartrate (Lopressor) 25 mg PO BID [facility] Last Admin: 03/02/17 10:50 Dose: 25 mg Multivitamins/Minerals (Therapeutic-M Tab) 1 tab PO DAILY [facility] Last Admin: 03/02/17 10:53 Dose: 1 tab Potassium Chloride (K-Dur 20 Meq Er Tab) 20 meq PO BRK [facility] Last Admin: 03/02/17 08:42 Dose: 20 meq Pregabalin (Lyrica) 50 mg PO BID [facility] Last Admin: 03/02/17 10:53 Dose: 50 mg Ropinirole HCl (Requip) 0.5 mg PO TID [facility] Last Admin: 03/02/17 11:00 Dose: 0.5 mg Physical Exam - Constitutional Appears: Non-toxic, No Acute Distress - Head Exam Head Exam: NORMAL INSPECTION - Eye Exam Eye Exam: Normal appearance - ENT Exam ENT Exam: Mucous Membranes Moist - Neck Exam Neck exam: Positive for: Normal Inspection - Respiratory Exam Respiratory Exam: NORMAL BREATHING PATTERN. absent: Accessory Muscle Use, Respiratory Distress - Cardiovascular Exam Cardiovascular Exam: absent: Bradycardia, Tachycardia - GI/Abdominal Exam GI & Abdominal Exam: Soft. absent: Distended, Tenderness - Exam Additional comments: L inguinal hernia: soft, non-TTP. - Extremities Exam Extremities exam: Positive for: normal inspection - Neurological Exam Neurological exam: Alert, Normal Gait, Oriented x3 - Psychiatric Exam Psychiatric exam: Normal Affect, Normal Mood - Skin Skin Exam: Dry, Normal Color, Warm Results - Vital Signs Recent Vital Signs: Last Vital Signs Temp 98.2 F 03/02/17 07:49 Pulse 69 03/02/17 10:53 Resp 19 03/02/17 07:49 BP 142/65 03/02/17 10:53 Pulse Ox 96 03/02/17 07:49 - Labs Result Diagrams: 03/02/17 06:00 03/02/17 06:00 Labs: Laboratory Results - last 24 hr 03/01/17 03/01/17 03/01/17 07:00 07:00 07:00 WBC RBC Hgb Hct MCV MCH MCHC RDW Plt Count MPV Sodium Potassium Chloride Carbon Dioxide Anion Gap BUN Creatinine Est GFR ( Amer) Est GFR (Non-Af Amer) Random Glucose Hemoglobin A1c 6.3 Calcium Total Bilirubin AST ALT Alkaline Phosphatase C-React Prot High Sens Total Protein Albumin Globulin Albumin/Globulin Ratio Vitamin B12 248 Folate > 20.0 Procalcitonin 0.05 L 03/01/17 03/02/17 03/02/17 07:00 06:00 06:00 WBC 5.5 RBC 4.25 Hgb 12.5 L Hct 37.6 L MCV 88.5 MCH 29.4 MCHC 33.2 RDW 15.2 H Plt Count 171 MPV 10.2 Sodium 138 Potassium 3.6 Chloride 100 Carbon Dioxide 28 Anion Gap 14 BUN 25 H Creatinine 0.9 Est GFR ( Amer) > 60 Est GFR (Non-Af Amer) > 60 Random Glucose 109 Hemoglobin A1c Calcium 9.3 Total Bilirubin 0.8 AST 24 ALT 24 Alkaline Phosphatase 83 C-React Prot High Sens > 15.00 H Total Protein 7.5 Albumin 3.8 Globulin 3.6 Albumin/Globulin Ratio 1.1 Vitamin B12 Folate Procalcitonin Assessment & Plan - Assessment and Plan (Free Text) Assessment: 81 y/o M w/ extensive cardiac Hx and chronic LIH - pt refusing surgical intervention; would need to be off Plavix x5days for L IHR - f/u w/ Dr. Hennessy in office if pt elects to have IHR - cont medical management per primary - No surgical intervention at this time. Pt discussed w/ Dr. Gerhard Cruz DO PGY2 <Hong Hennessy - Last Filed: 03/07/17 11:02> Results - Vital Signs Recent Vital Signs: Last Vital Signs Temp 97.8 F 03/03/17 07:38 Pulse 69 03/03/17 07:38 Resp 20 03/03/17 07:38 BP 140/60 03/03/17 10:40 Pulse Ox 94 L 03/03/17 07:38 - Labs Result Diagrams: 03/02/17 06:00 03/02/17 06:00 Assessment & Plan - Assessment and Plan (Free Text) Plan: Dx Asymptomatic inguinal hernia Pt absolutely refusing surgery now Consultation done under my direct supervision Tyler Hennessy MD FACS
--- NOTE | 2017-03-02 22:25 | CP.PCM.HP ---
History of Present Illness - History of Present Illness History of Present Illness: 03/01/17 , cc swelling of legs , rt knee swelling ,81 years old male with pmc of multiple medicle problems , came in [facility] [place] [facility] , with swelling of legs since one month , and had swelling of rt leg , no n,v,d . feeling fatigue and tired . no oscar , dizzyness . pt is seen and examined in his room , feeling better , Present on Admission - Present on Admission Any Indicators Present on Admission: No History of DVT/PE: No History of Uncontrolled Diabetes: No Urinary Catheter: No Decubitus Ulcer Present: No Review of Systems - Constitutional Constitutional: Fatigue, Weakness - EENT Eyes: As Per HPI Ears: As Per HPI Nose/Mouth/Throat: As Per HPI - Cardiovascular Cardiovascular: As Per HPI, Edema, Leg Edema, Pedal Edema - Gastrointestinal Gastrointestinal: As Per HPI - Genitourinary Genitourinary: As Per HPI - Musculoskeletal Musculoskeletal: As Per HPI, Arthralgias, Atrophy, Joint Swelling, Muscle Weakness - Neurological Neurological: As Per HPI - Psychiatric Psychiatric: As Per HPI - Endocrine Endocrine: As Per HPI - Hematologic/Lymphatic Hematologic: As Per HPI Past Patient History - Infectious Disease Hx of Infectious Diseases: None - Tetanus Immunizations Tetanus Immunization: Unknown - Past Medical History & Family History Past Medical History?: Yes - Past Social History Smoking Status: Never Smoked Alcohol: None Drugs: Denies Home Situation {Lives}: With Family Domestic Violence: Negative - CARDIAC Hx Cardiac Disorders: Yes (cad ) Hx Congestive Heart Failure: Yes Hx Hypertension: Yes - PULMONARY Hx Respiratory Disorders: No - NEUROLOGICAL HX Cerebrovascular Accident: Yes - HEENT 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) - RENAL Hx Renal Failure: Yes - ENDOCRINE/METABOLIC Hx Hypothyroidism: Yes - HEMATOLOGICAL/ONCOLOGICAL Hx Blood Disorders: Yes (SHINGLES) Hx Shingles: Yes - INTEGUMENTARY Hx Dermatological Problems: Yes (MULTIPLE HEMATOMA AND BRUISING FROM USING BLOOD THINNERS) - MUSCULOSKELETAL/RHEUMATOLOGICAL Hx Falls: No - GASTROINTESTINAL Hx Gastrointestinal Disorders: No - GENITOURINARY/GYNECOLOGICAL Hx Genitourinary Disorders: Yes Hx Prostate Problems: Yes (BPH PHIMOSIS 03-28-24) Hx Urinary Tract Infection: Yes - PSYCHIATRIC Hx Psychophysiologic Disorder: (INSOMNIA) Hx Substance Use: No - SURGICAL HISTORY Hx Coronary Stent: Yes Hx Open Heart Surgery: Yes Hx Orthopedic Surgery: Yes - ANESTHESIA Hx Anesthesia Reactions: No Hx Malignant Hyperthermia: No Meds Allergies/Adverse Reactions: Allergies Allergy/AdvReac Type Severity Reaction Status Date / Time No Known Allergies Allergy Verified 12/21/15 16:34 Physical Exam - Constitutional Appears: Well - Head Exam Head Exam: ATRAUMATIC, NORMAL INSPECTION, NORMOCEPHALIC - Eye Exam Eye Exam: EOMI, Normal appearance, PERRL Pupil Exam: NORMAL ACCOMODATION, PERRL - ENT Exam ENT Exam: Mucous Membranes Moist, Normal Exam - Neck Exam Neck exam: Positive for: Normal Inspection - Respiratory Exam Respiratory Exam: Clear to Auscultation Bilateral, NORMAL BREATHING PATTERN - Cardiovascular Exam Cardiovascular Exam: REGULAR RHYTHM - GI/Abdominal Exam GI & Abdominal Exam: Normal Bowel Sounds, Soft. absent: Tenderness - Rectal Exam Rectal Exam: NORMAL INSPECTION - Exam Exam: Circumcision, NORMAL INSPECTION External exam: NORMAL EXTERNAL EXAM Speculum exam: NORMAL SPECULUM EXAM Bimanual exam: NORMAL BIMANUAL EXAM - Extremities Exam Extremities exam: Positive for: joint swelling - Neurological Exam Neurological exam: Alert, CN II-XII Intact, Normal Gait, Oriented x3, Reflexes Normal - Psychiatric Exam Psychiatric exam: Normal Affect, Normal Mood - Skin Skin Exam: Dry, Intact, Normal Color, Warm Results - Vital Signs Recent Vital Signs: Last Vital Signs Temp 98.2 F 03/01/17 06:00 Pulse 91 H 03/01/17 10:00 Resp 20 03/01/17 06:00 BP 145/73 03/01/17 09:29 Pulse Ox 97 03/01/17 06:00 - Labs Result Diagrams: 03/02/17 06:00 03/02/17 06:00 Labs: Laboratory Results - last 24 hr 03/01/17 03/01/17 03/01/17 07:00 07:00 07:00 WBC RBC Hgb Hct MCV MCH MCHC RDW Plt Count MPV ESR Sodium 137 Potassium 3.4 L Chloride 99 Carbon Dioxide 29 Anion Gap 12 BUN 25 H Creatinine 0.9 Est GFR ( Amer) > 60 Est GFR (Non-Af Amer) > 60 Random Glucose 96 Hemoglobin A1c 6.3 Calcium 9.0 Iron 34 L TIBC 269 % Saturation 13 L Lactate Dehydrogenase 253 L Total Creatine Kinase 29 L Troponin I < 0.01 C-React Prot High Sens Triglycerides 47 Cholesterol 112 L LDL Cholesterol Direct 32 HDL Cholesterol 53 Vitamin B12 248 Procalcitonin TSH 3rd Generation 03/01/17 03/01/17 03/01/17 07:00 07:00 07:00 WBC 5.9 RBC 4.02 Hgb 11.8 L Hct 35.4 L MCV 88.1 MCH 29.4 MCHC 33.3 RDW 15.4 H Plt Count 168 MPV 10.6 ESR 54 H Sodium Potassium Chloride Carbon Dioxide Anion Gap BUN Creatinine Est GFR ( Amer) Est GFR (Non-Af Amer) Random Glucose Hemoglobin A1c Calcium Iron TIBC % Saturation Lactate Dehydrogenase Total Creatine Kinase Troponin I C-React Prot High Sens Triglycerides Cholesterol LDL Cholesterol Direct HDL Cholesterol Vitamin B12 Procalcitonin TSH 3rd Generation 2.05 03/01/17 03/01/17 07:00 07:00 WBC RBC Hgb Hct MCV MCH MCHC RDW Plt Count MPV ESR Sodium Potassium Chloride Carbon Dioxide Anion Gap BUN Creatinine Est GFR ( Amer) Est GFR (Non-Af Amer) Random Glucose Hemoglobin A1c Calcium Iron TIBC % Saturation Lactate Dehydrogenase Total Creatine Kinase Troponin I C-React Prot High Sens > 15.00 H Triglycerides Cholesterol LDL Cholesterol Direct HDL Cholesterol Vitamin B12 Procalcitonin 0.05 L TSH 3rd Generation Assessment & Plan (1) CHF exacerbation Status: Acute (2) Inflammatory arthritis Status: Acute (3) Knee effusion, right Status: Acute (4) Urinary tract infection Status: Acute (5) Altered mental status Status: Acute (6) Atrial fibrillation Status: Acute (7) Chest pain Status: Acute - Date & Time Date: 03/01/17 Time: 14:04
--- NOTE | 2017-03-02 22:46 | CP.PCM.PN ---
Subjective - Date & Time of Evaluation Date of Evaluation: 03/02/17 Time of Evaluation: 11:00 - Subjective Subjective: pt is seen and examined at bed side , is also present on the bed , looking comfortable , legs swelling getting , knees are getting better , rt. side of groin area getting swelling ,no n.v. d. or oscar . no sob . no h/o of inguinal hernia surgery Objective - Vital Signs/Intake and Output Vital Signs (last 24 hours): Temp Pulse Resp BP Pulse Ox 98.2 F 69 19 110/52 L 96 03/02/17 07:49 03/02/17 10:53 03/02/17 07:49 03/02/17 21:15 03/02/17 07:49 Intake and Output: 03/02/17 03/03/17 18:59 06:59 Intake Total 120 Output Total 1200 Balance -1080 - Medications Medications: Current Medications Albuterol/Ipratropium (Duoneb 3 Mg/0.5 Mg (3 Ml) Ud) 3 ml IH [id number] [facility] Last Admin: 03/02/17 20:56 Dose: Not Given Carvedilol (Coreg) 12.5 mg PO BID [facility] Last Admin: 03/02/17 10:53 Dose: 12.5 mg Clopidogrel Bisulfate (Plavix) 75 mg PO DAILY [facility] Last Admin: 03/02/17 10:52 Dose: 75 mg Famotidine (Pepcid) 40 mg PO HS [facility] Last Admin: 03/02/17 21:14 Dose: 40 mg Furosemide (Lasix) 40 mg IVP Q12 [facility] Last Admin: 03/02/17 21:15 Dose: 40 mg Furosemide (Lasix) 40 mg PO DAILY [facility] Metoprolol Tartrate (Lopressor) 25 mg PO BID [facility] Last Admin: 03/02/17 10:50 Dose: 25 mg Multivitamins/Minerals (Therapeutic-M Tab) 1 tab PO DAILY [facility] Last Admin: 03/02/17 10:53 Dose: 1 tab Potassium Chloride (K-Dur 20 Meq Er Tab) 20 meq PO BRK [facility] Last Admin: 03/02/17 08:42 Dose: 20 meq Pregabalin (Lyrica) 50 mg PO BID [facility] Last Admin: 03/02/17 10:53 Dose: 50 mg Ropinirole HCl (Requip) 0.5 mg PO TID [facility] Last Admin: 03/02/17 11:00 Dose: 0.5 mg - Labs Labs: 03/02/17 06:00 03/02/17 06:00 PT 12.6 Seconds (9.9-11.8) H 02/28/17 16:45 INR 1.17 (0.93-1.08) H 02/28/17 16:45 APTT 33.5 Seconds (23.7-30.8) H 02/28/17 16:45 - Constitutional Appears: Well - Head Exam Head Exam: ATRAUMATIC, NORMAL INSPECTION, NORMOCEPHALIC - Eye Exam Eye Exam: EOMI, Normal appearance, PERRL Pupil Exam: NORMAL ACCOMODATION, PERRL - ENT Exam ENT Exam: Mucous Membranes Moist, Normal Exam - Neck Exam Neck Exam: Full ROM, Normal Inspection. absent: Lymphadenopathy - Respiratory Exam Respiratory Exam: Clear to Ausculation Bilateral, NORMAL BREATHING PATTERN - Cardiovascular Exam Cardiovascular Exam: REGULAR RHYTHM, +S1, +S2. absent: Murmur - GI/Abdominal Exam GI & Abdominal Exam: Soft, Normal Bowel Sounds. absent: Tenderness - Back Exam Back Exam: NORMAL INSPECTION - Neurological Exam Neurological Exam: Alert, Awake, CN II-XII Intact, Normal Gait, Oriented x3 Assessment and Plan (1) CHF exacerbation Status: Acute (2) Inflammatory arthritis Status: Acute (3) Knee effusion, right Status: Acute (4) Urinary tract infection Status: Acute (5) Altered mental status Status: Acute (6) Atrial fibrillation Status: Acute (7) Chest pain Status: Acute - Assessment and Plan (Free Text) Assessment: ssweiiong of legs getting better , h/o cad . cabg , septic arhritis , at.fib . getting better , surgicle consult called . as per request . uti , getting anb. waiting for c/s results , cont. anb as per id
--- NOTE | 2017-03-03 00:21 | CP.PCM.PN ---
Subjective - Date & Time of Evaluation Date of Evaluation: 03/02/17 Time of Evaluation: 15:00 - Subjective Subjective: 81-year-old male with past medical history of A. fib and TIA, presents with painless atraumtic bilateral leg swelling for the past one month as well as one- week history of atraumatic right knee pain and swelling. Patient reports no SOB , dyspnea, orthopnea, or chest pain. Otherwise: (-) diaphoresis, (-) recent travel / hospitalization, (-) h/o DVT, (-) h/o gout, (-) fever, (-) dizziness, ( -) syncope, (-) nausea, (-) vomiting, (-) calf swelling/pain, (-) neuro deficits. feels better, decrease leg pain Objective - Vital Signs/Intake and Output Vital Signs (last 24 hours): Temp Pulse Resp BP Pulse Ox 98.2 F 69 19 110/52 L 96 03/02/17 07:49 03/02/17 10:53 03/02/17 07:49 03/02/17 21:15 03/02/17 07:49 Intake and Output: 03/02/17 03/03/17 18:59 06:59 Intake Total 120 Output Total 1200 Balance -1080 - Medications Medications: Current Medications Albuterol/Ipratropium (Duoneb 3 Mg/0.5 Mg (3 Ml) Ud) 3 ml IH [id number] [facility] Last Admin: 03/02/17 20:56 Dose: Not Given Carvedilol (Coreg) 12.5 mg PO BID [facility] Last Admin: 03/02/17 10:53 Dose: 12.5 mg Clopidogrel Bisulfate (Plavix) 75 mg PO DAILY [facility] Last Admin: 03/02/17 10:52 Dose: 75 mg Famotidine (Pepcid) 40 mg PO HS [facility] Last Admin: 03/02/17 21:14 Dose: 40 mg Furosemide (Lasix) 40 mg IVP Q12 [facility] Last Admin: 03/02/17 21:15 Dose: 40 mg Furosemide (Lasix) 40 mg PO DAILY [facility] Metoprolol Tartrate (Lopressor) 25 mg PO BID [facility] Last Admin: 03/02/17 10:50 Dose: 25 mg Multivitamins/Minerals (Therapeutic-M Tab) 1 tab PO DAILY [facility] Last Admin: 07/01/17 10:53 Dose: 1 tab Potassium Chloride (K-Dur 20 Meq Er Tab) 20 meq PO BRK [facility] Last Admin: 03/02/17 08:42 Dose: 20 meq Pregabalin (Lyrica) 50 mg PO BID [facility] Last Admin: 03/02/17 10:53 Dose: 50 mg Ropinirole HCl (Requip) 0.5 mg PO TID [facility] Last Admin: 03/02/17 11:00 Dose: 0.5 mg - Labs Labs: 03/02/17 06:00 03/02/17 06:00 PT 12.6 Seconds (9.9-11.8) H 02/28/17 16:45 INR 1.17 (0.93-1.08) H 02/28/17 16:45 APTT 33.5 Seconds (23.7-30.8) H 02/28/17 16:45 Assessment and Plan (1) RLS (restless legs syndrome) Assessment & Plan: requip and lyrica Status: Acute (2) Inflammatory arthritis Assessment & Plan: supportive care Status: Acute (3) Knee effusion, right Assessment & Plan: physical therapy Status: Acute (4) Atrial fibrillation Assessment & Plan: controle on metoprolol Status: Acute - Assessment and Plan (Free Text) Plan: out of bed to chair and physical therapy
[2017-03-03] MEDS: Albuterol-Ipratrop 3 mg / 0.5 (3 ml) UD IH SCH ×2 (01:39→07:47)
[2017-03-03 07:38] VITALS: BP 140/60; RESP 20; TEMP 97.8; O2SAT 94
[2017-03-03] MEDS: Potassium Chloride 20 mEq ER Tab PO SCH (08:01)
--- NOTE | 2017-03-03 09:50 | CP.PCM.PN ---
Subjective - Date & Time of Evaluation Date of Evaluation: 03/03/17 Time of Evaluation: 09:30 - Subjective Subjective: Known CAD CABG h/o stent insertion admitted with Leg Pain. Now leg pain has improved. Objective - Vital Signs/Intake and Output Vital Signs (last 24 hours): Temp Pulse Resp BP Pulse Ox 97.8 F 69 20 140/60 94 L 03/03/17 07:38 03/03/17 07:38 03/03/17 07:38 03/03/17 07:38 03/03/17 07:38 Intake and Output: 03/03/17 03/03/17 06:59 18:59 Intake Total 0 Balance 0 - Medications Medications: Current Medications Albuterol/Ipratropium (Duoneb 3 Mg/0.5 Mg (3 Ml) Ud) 3 ml IH [id number] [facility] Last Admin: 03/03/17 07:47 Dose: Not Given Carvedilol (Coreg) 12.5 mg PO BID [facility] Last Admin: 03/02/17 10:53 Dose: 12.5 mg Clopidogrel Bisulfate (Plavix) 75 mg PO DAILY [facility] Last Admin: 03/02/17 10:52 Dose: 75 mg Famotidine (Pepcid) 40 mg PO HS [facility] Last Admin: 03/02/17 21:14 Dose: 40 mg Furosemide (Lasix) 40 mg IVP Q12 [facility] Last Admin: 03/02/17 21:15 Dose: 40 mg Furosemide (Lasix) 40 mg PO DAILY [facility] Metoprolol Tartrate (Lopressor) 25 mg PO BID [facility] Last Admin: 03/02/17 10:50 Dose: 25 mg Multivitamins/Minerals (Therapeutic-M Tab) 1 tab PO DAILY [facility] Last Admin: 03/02/17 10:53 Dose: 1 tab Potassium Chloride (K-Dur 20 Meq Er Tab) 20 meq PO BRK [facility] Last Admin: 03/03/17 08:01 Dose: 20 meq Pregabalin (Lyrica) 50 mg PO BID [facility] Last Admin: 03/02/17 10:53 Dose: 50 mg Ropinirole HCl (Requip) 0.5 mg PO TID [facility] Last Admin: 03/02/17 11:00 Dose: 0.5 mg - Labs Labs: 03/02/17 06:00 03/02/17 06:00 PT 12.6 Seconds (9.9-11.8) H 02/28/17 16:45 INR 1.17 (0.93-1.08) H 02/28/17 16:45 APTT 33.5 Seconds (23.7-30.8) H 02/28/17 16:45 - Constitutional Appears: Well - Head Exam Head Exam: ATRAUMATIC, NORMAL INSPECTION, NORMOCEPHALIC - Eye Exam Eye Exam: EOMI, Normal appearance, PERRL Pupil Exam: NORMAL ACCOMODATION, PERRL - ENT Exam ENT Exam: Mucous Membranes Moist, Normal Exam - Neck Exam Neck Exam: Full ROM, Normal Inspection. absent: Lymphadenopathy - Respiratory Exam Respiratory Exam: Clear to Ausculation Bilateral, NORMAL BREATHING PATTERN - Cardiovascular Exam Cardiovascular Exam: REGULAR RHYTHM, +S1, +S2. absent: Murmur - GI/Abdominal Exam GI & Abdominal Exam: Soft, Normal Bowel Sounds. absent: Tenderness - Exam Exam: Circumcision, NORMAL INSPECTION External exam: NORMAL EXTERNAL EXAM Speculum exam: NORMAL SPECULUM EXAM Bimanual exam: NORMAL BIMANUAL EXAM - Extremities Exam Extremities Exam: Full ROM, Normal Capillary Refill, Normal Inspection. 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 on ECHO 11/29/2015. Plan: Continue Present Therapy. No Anginal Symptoms.
[2017-03-03] MEDS: Multivitamin With Minerals Tab PO SCH (10:37)
--- NOTE | 2017-03-03 11:10 | CP.PCM.PN ---
Subjective - Date & Time of Evaluation Date of Evaluation: 03/03/17 Time of Evaluation: 09:00 - Subjective Subjective: DOING WELL Objective - Vital Signs/Intake and Output Vital Signs (last 24 hours): Temp Pulse Resp BP Pulse Ox 97.8 F 69 20 140/60 94 L 03/03/17 07:38 03/03/17 07:38 03/03/17 07:38 03/03/17 10:40 03/03/17 07:38 Intake and Output: 03/03/17 03/03/17 06:59 18:59 Intake Total 0 Balance 0 - Medications Medications: Current Medications Albuterol/Ipratropium (Duoneb 3 Mg/0.5 Mg (3 Ml) Ud) 3 ml IH [id number] [facility] Last Admin: 03/03/17 07:47 Dose: Not Given Carvedilol (Coreg) 12.5 mg PO BID [facility] Last Admin: 03/03/17 10:39 Dose: 12.5 mg Clopidogrel Bisulfate (Plavix) 75 mg PO DAILY [facility] Last Admin: 03/03/17 10:38 Dose: 75 mg Famotidine (Pepcid) 40 mg PO HS [facility] Last Admin: 03/02/17 21:14 Dose: 40 mg Furosemide (Lasix) 40 mg PO DAILY [facility] Last Admin: 03/03/17 10:39 Dose: 40 mg Metoprolol Tartrate (Lopressor) 25 mg PO BID [facility] Last Admin: 03/03/17 10:40 Dose: 25 mg Multivitamins/Minerals (Therapeutic-M Tab) 1 tab PO DAILY [facility] Last Admin: 03/03/17 10:37 Dose: 1 tab Potassium Chloride (K-Dur 20 Meq Er Tab) 20 meq PO BRK [facility] Last Admin: 03/03/17 08:01 Dose: 20 meq Pregabalin (Lyrica) 50 mg PO BID [facility] Last Admin: 03/03/17 10:40 Dose: 50 mg Ropinirole HCl (Requip) 0.5 mg PO TID [facility] Last Admin: 03/03/17 10:38 Dose: 0.5 mg - Labs Labs: 03/02/17 06:00 03/02/17 06:00 PT 12.6 Seconds (9.9-11.8) H 02/28/17 16:45 INR 1.17 (0.93-1.08) H 02/28/17 16:45 APTT 33.5 Seconds (23.7-30.8) H 02/28/17 16:45 - Constitutional Appears: Well - Head Exam Head Exam: ATRAUMATIC, NORMAL INSPECTION, NORMOCEPHALIC - Eye Exam Eye Exam: EOMI, Normal appearance, PERRL Pupil Exam: NORMAL ACCOMODATION, PERRL - ENT Exam ENT Exam: Mucous Membranes Moist, Normal Exam - Neck Exam Neck Exam: Full ROM, Normal Inspection. absent: Lymphadenopathy - Respiratory Exam Respiratory Exam: Clear to Ausculation Bilateral, NORMAL BREATHING PATTERN - Cardiovascular Exam Cardiovascular Exam: REGULAR RHYTHM, +S1, +S2. absent: Murmur - GI/Abdominal Exam GI & Abdominal Exam: Soft, Normal Bowel Sounds. absent: Tenderness - Rectal Exam Rectal Exam: NORMAL INSPECTION - Exam Exam: Circumcision, NORMAL INSPECTION External exam: NORMAL EXTERNAL EXAM Speculum exam: NORMAL SPECULUM EXAM Bimanual exam: NORMAL BIMANUAL EXAM - Extremities Exam Extremities Exam: Full ROM, Normal Capillary Refill, Normal Inspection. absent : Joint Swelling, Pedal Edema - Back Exam Back Exam: NORMAL INSPECTION - Neurological Exam Neurological Exam: Alert, Awake, CN II-XII Intact, Normal Gait, Oriented x3 - Psychiatric Exam Psychiatric exam: Normal Affect, Normal Mood - Skin Skin Exam: Dry, Intact, Normal Color, Warm Assessment and Plan (1) CHF exacerbation Status: Acute (2) Inflammatory arthritis Status: Acute (3) Knee effusion, right Status: Acute (4) Urinary tract infection Status: Acute (5) Altered mental status Status: Acute (6) Atrial fibrillation Status: Acute (7) Pseudogout Status: Acute - Assessment and Plan (Free Text) Plan: OFF OF ABX NO FURTHER ABX
[2017-03-03 20:40] VITALS: PULSE 69
--- NOTE | 2017-03-03 21:17 | CP.PCM.PCO ---
Physician Communication Note - Physician Communication Note Physician Communication Note: Dx reducible inguinal hernia-pt refuses surgery now!
--- NOTE | 2017-03-03 22:26 | CP.PCM.PN ---
Subjective - Date & Time of Evaluation Date of Evaluation: 03/03/17 Time of Evaluation: 10:00 - Subjective Subjective: 81-year-old male with past medical history of A. fib and TIA, presents with painless atraumtic bilateral leg swelling for the past one month as well as one- week history of atraumatic right knee pain and swelling. Patient reports no SOB , dyspnea, orthopnea, or chest pain. Otherwise: (-) diaphoresis, (-) recent travel / hospitalization, (-) h/o DVT, (-) h/o gout, (-) fever, (-) dizziness, ( -) syncope, (-) nausea, (-) vomiting, (-) calf swelling/pain, (-) neuro deficits. at bed side, feels being d/c home Objective - Vital Signs/Intake and Output Vital Signs (last 24 hours): Temp Pulse Resp BP Pulse Ox 97.8 F 69 20 140/60 94 L 03/03/17 07:38 03/03/17 07:38 03/03/17 07:38 03/03/17 10:40 03/03/17 07:38 Intake and Output: 03/03/17 03/04/17 18:59 06:59 Intake Total 840 Balance 840 - Labs Labs: 03/02/17 06:00 03/02/17 06:00 PT 12.6 Seconds (9.9-11.8) H 02/28/17 16:45 INR 1.17 (0.93-1.08) H 02/28/17 16:45 APTT 33.5 Seconds (23.7-30.8) H 02/28/17 16:45 - Constitutional Appears: Well - Head Exam Head Exam: ATRAUMATIC, NORMAL INSPECTION, NORMOCEPHALIC - ENT Exam ENT Exam: Mucous Membranes Moist, Normal Exam - Neck Exam Neck Exam: Full ROM, Normal Inspection. absent: Lymphadenopathy - Respiratory Exam Respiratory Exam: Clear to Ausculation Bilateral, NORMAL BREATHING PATTERN - Cardiovascular Exam Cardiovascular Exam: REGULAR RHYTHM, +S1, +S2. absent: Murmur - Extremities Exam Extremities Exam: Full ROM, Normal Capillary Refill, Normal Inspection. absent : Joint Swelling, Pedal Edema - Neurological Exam Neurological Exam: Alert, Awake, CN II-XII Intact, Normal Gait, Oriented x3 - Psychiatric Exam Psychiatric exam: Normal Affect, Normal Mood Assessment and Plan (1) RLS (restless legs syndrome) Assessment & Plan: contonue requip and neurontin Status: Acute (2) Inflammatory arthritis Assessment & Plan: supportive care Status: Acute (3) Knee effusion, right Assessment & Plan: supportive care Status: Acute (4) Atrial fibrillation Assessment & Plan: rate controle, on anticoagulation Status: Acute - Assessment and Plan (Free Text) Plan: fall precaution
== END 2017-03-03 13:22 | disposition home or self-care (01) | DRG 553 ==
LOC: ED 15:35 → ERH 20:05 → 3RNO 22:07
PROVIDERS: ADMIT Internal Medicine; ATTEND Internal Medicine
PROC: 0S9C3ZZ Drainage of Right Knee Joint, Percutaneous Approach (ICD-10-PCS; principal; 2017-02-28)
DX: M06.4 Inflammatory polyarthropathy (principal); I50.23 Acute on chronic systolic (congestive) heart failure; I48.91 Unspecified atrial fibrillation; I08.2 Rheumatic disorders of both aortic and tricuspid valves; N39.0 Urinary tract infection, site not specified; E03.9 Hypothyroidism, unspecified; G25.81 Restless legs syndrome; H91.91 Unspecified hearing loss, right ear; I11.0 Hypertensive heart disease with heart failure; I73.9 Peripheral vascular disease, unspecified; Z95.1 Presence of aortocoronary bypass graft; Z86.73 Personal history of transient ischemic attack (TIA), and cerebral infarction without residual deficits; N40.0 Benign prostatic hyperplasia without lower urinary tract symptoms; I25.10 Atherosclerotic heart disease of native coronary artery without angina pectoris; Z95.5 Presence of coronary angioplasty implant and graft; Z87.440 Personal history of urinary (tract) infections; M25.461 Effusion, right knee; R41.82 Altered mental status, unspecified; R07.9 Chest pain, unspecified; K40.90 Unilateral inguinal hernia, without obstruction or gangrene, not specified as recurrent; M11.20 Other chondrocalcinosis, unspecified site; R40.2412 Glasgow coma scale score 13-15, at arrival to emergency department

== ENCOUNTER 2018-05-09 10:34 | Inpatient (IN) | payer MEDICARE, MEDICAID ==
--- NOTE | 2018-05-09 11:28 | ED PDOC ---
Arrival/HPI - General Chief Complaint: Lower Extremity Problem/Injury Time Seen by Provider: 05/09/18 11:13 Historian: Patient - History of Present Illness Narrative History of Present Illness (Text): 82yo male with history of CHF, CABG x4, and coronary stents x 4, and per , history of "hard arteries", comes to ER with complaints of worsening chronic leg pain and swelling to left lower extremity x 1 week. Otherwise, no fever, chills, chest pain or shortness of breath. Patient has no additional medical complaints. PMD: Dr. 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) - Renal Hx Renal Failure: Yes - Endocrine/Metabolic Hx Hypothyroidism: Yes - Hematological/Oncological Hx Blood Disorders: Yes (SHINGLES) Hx Shingles: Yes - Integumentary Hx Dermatological Disorder: Yes (MULTIPLE HEMATOMA AND BRUISING FROM USING BLOOD THINNERS) - Musculoskeletal/Rheumatological Hx Falls: No - Gastrointestinal Hx Gastrointestinal Disorders: No - Genitourinary/Gynecological Hx Genitourinary Disorders: Yes Hx Prostate Problems: Yes (BPH PHIMOSIS 03-28-24) Hx Urinary Tract Infection: Yes - Psychiatric Hx Psychophysiologic Disorder: (INSOMNIA) Hx Substance Use: No - Surgical History Hx Coronary Artery Bypass Graft: Yes (x 7 stents) Hx Coronary Stent: Yes (x 7 stents) Hx Open Heart Surgery: Yes Hx Orthopedic Surgery: Yes - Anesthesia Hx Anesthesia: Yes Hx Anesthesia Reactions: No Hx Malignant Hyperthermia: No - Suicidal Assessment Feels Threatened In Home Enviroment: No Family/Social History - Physician Review Nursing Documentation Reviewed: Yes Family/Social History: No Known Family HX Smoking Status: Never Smoked Hx Alcohol Use: Yes (social) Hx Substance Use: No Allergies/Home Meds Allergies/Adverse Reactions: Allergies No Known Allergies Allergy (Verified 12/21/15 16:34) Home Medications: Home Meds Medication Instructions Recorded Confirmed Furosemide [Lasix] 40 mg PO DAILY 03/29/14 05/09/18 Potassium Chloride 20 meq PO DAILY 12/21/15 05/09/18 Vit With Iron 1 tab PO DAILY 12/21/15 05/09/18 Review of Systems - Physician Review All systems were reviewed & negative as marked: Yes - Review of Systems Constitutional: absent: Fevers Respiratory: absent: SOB Cardiovascular: absent: Chest Pain Musculoskeletal: Other (bilateral leg pain, left lower leg swelling) Physical Exam Vital Signs Reviewed: Yes Vital Signs Temp Pulse Resp BP Pulse Ox 05/09/18 14:15 174/80 H 05/09/18 13:07 97.7 F 72 18 154/54 H 95 05/09/18 11:00 97.7 F 71 17 135/60 95 Temperature: Afebrile Blood Pressure: Normal Pulse: Regular Respiratory Rate: Normal Appearance: Positive for: Non-Toxic, Comfortable Pain Distress: None Mental Status: Positive for: Alert and Oriented X 3 - Systems Exam Head: Present: Atraumatic, Normocephalic Pupils: Present: PERRL Extroacular Muscles: Present: EOMI Mouth: Present: Moist Mucous Membranes Neck: Present: Normal Range of Motion Respiratory/Chest: Present: Clear to Auscultation, Good Air Exchange. No: Respiratory Distress, Accessory Muscle Use Cardiovascular: Present: Regular Rate and Rhythm, Normal S1, S2. No: Murmurs Abdomen: No: Tenderness, Distention, Peritoneal Signs Upper Extremity: Present: Normal Inspection. No: Cyanosis, Edema Lower Extremity: Present: Edema (pitting edema left lower extremity), NORMAL PULSES (normal pulses right lower extremity; difficult to palpate pulse left lower extremity due to swelling), Normal ROM Neurological: Present: GCS=15, CN II-XII Intact, Speech Normal Skin: Present: Warm, Dry, Pale. No: Rashes Psychiatric: Present: Alert, Oriented x 3, Normal Insight, Normal Concentration Medical Decision Making ED Course and Treatment: Impression: 82yo male with history of chf, peripheral vascular disease, comes with complaints of lower extremity pain and swelling Plan: -- Labs -- CXR -- US Duplex lower extremities -- US Arteries lower extremities -- Reassess and disposition Prior Visits: Notes and results from previous visits were reviewed. Patient was last seen in the Emergency department on 02/28/17, has labs, doppler studies and was admitted under Dr. Ward's service. Progress Notes: 05/09/18 13:12 HISTORY: leg swelling COMPARISON: 02/28/2017 FINDINGS: LUNGS: No active pulmonary disease. PLEURA: No significant pleural effusion identified, no pneumothorax apparent. CARDIOVASCULAR: Moderate cardiomegaly and mild vascular and interstitial congestion. OSSEOUS STRUCTURES: Sternal wires VISUALIZED UPPER ABDOMEN: Normal. OTHER FINDINGS: None. IMPRESSION: Moderate cardiomegaly and mild vascular and interstitial congestion. 05/09/18 14:00 EKG shows aflutter with 4:[address] changes. Patient needs observation for edema. Lasix ordered.. DVT study negative. Arterial u/s shows worsening pvd. Will need further evalaution of claudication. Vascular consult placed - Lab Interpretations Lab Results: 05/09/18 11:28 05/09/18 11:28 Lab Results 05/09/18 11:28: Sodium 138, Potassium 4.3, Chloride 101, Carbon Dioxide 28, Anion Gap 13, BUN 28 H, Creatinine 1.0, Est GFR ( Amer) > 60, Est GFR ( Non-Af Amer) > 60, Random Glucose 135 H, Calcium 9.3, Total Bilirubin 1.1, AST 28, ALT 17, Alkaline Phosphatase 87, Total Creatine Kinase 42, Troponin I < 0.01 , NT-Pro-B Natriuret Pep 2820 H, Total Protein 7.2, Albumin 3.9, Globulin 3.2, Albumin/Globulin Ratio 1.2 05/09/18 11:28: PT 16.3 H, INR 1.41, APTT 34.2 05/09/18 11:28: WBC 5.1, RBC 3.78, Hgb 11.4 L, Hct 34.5 L, MCV 91.3, MCH 30.2, MCHC 33.0, RDW 16.3 H, Plt Count 122, MPV 9.8, Gran % 56.4, Lymph % (Auto) 22.9 , [place] % (Auto) 7.5 H, Eos % (Auto) 12.6 H, Baso % (Auto) 0.6, Gran # 2.86, Lymph # (Auto) 1.2, [place] # (Auto) 0.4, Eos # (Auto) 0.6, Baso # (Auto) 0.03 - RAD Interpretation Radiology Orders: 05/09/18 11:13 DUPLEX LOWER EXTRM VEIN LEFT [US] Stat LOWER EXT ART NON-INV COMPL [US] Stat 05/09/18 11:14 CHEST PORTABLE [RAD] Stat - Medication Orders Current Medication Orders: Discontinued Medications Furosemide (Lasix) 40 mg IVP STAT STA Stop: 05/09/18 14:00 Last Admin: 05/09/18 14:15 Dose: 40 mg MAR Blood Pressure Document 05/09/18 14:15 [place] (Rec: 05/09/18 14:[id number] Blood Pressure Blood Pressure (100/60-150/90) 174/80 IVP Administration Document 05/09/18 14:15 LA (Rec: 05/09/18 14:17 [place] [id number]) Charges for Administration # of IVP Administrations 1 - Scribe Statement The provider has reviewed the documentation as recorded by the Scribe Provider Attestation: Alva Burgess Provider Scribe Attestation: All medical record entries made by the Scribe were at my direction and personally dictated by me. I have reviewed the chart and agree that the record accurately reflects my personal performance of the history, physical exam, medical decision making, and the department course for this patient. I have also personally directed, reviewed, and agree with the discharge instructions and disposition. Disposition/Present on Arrival - Present on Arrival Any Indicators Present on Arrival: No History of DVT/PE: No History of Uncontrolled Diabetes: No Urinary Catheter: No History of Decub. Ulcer: No History Surgical Site Infection Following: None - Disposition Have Diagnosis and Disposition been Completed?: Yes Diagnosis: Claudication, Edema Disposition: HOSPITALIZED Disposition Time: 14:01 Patient Plan: Observation Patient Problems: Current Active Problems Problem Status Onset Claudication Acute Edema Acute Condition: FAIR
[2018-05-09 11:55] LABS: BASO # 0.03 K/mm3 (0.0-2.0); BASO % 0.6 % (0.0-3.0); EOS # 0.6 (0.0-0.7); EOS % 12.6 % (1.5-5.0); GRAN # 2.86 (1.4-6.5); GRAN % 56.4 % (50.0-68.0); HEMOGLOBIN 11.4 g/dL (14.0-18.0); LYMPH # 1.2 (1.2-3.4); LYMPH % 22.9 % (22.0-35.0); MEAN CELL VOLUME 91.3 fl (80.0-105.0); MEAN CORPUSCULAR HEMOGLOBIN 30.2 pg (25.0-35.0); MEAN PLATELET VOLUME 9.8 fl (7.0-11.0); MONO # 0.4 (0.1-0.6); MONO % 7.5 % (1.0-6.0); RBC 3.78 10^6/uL (3.5-6.1); RED CELL DISTRIBUTION WIDTH 16.3 % (11.5-14.5); WHITE BLOOD COUNT 5.1 10^3/ul (4.5-11.0)
[2018-05-09 12:04] LABS: INR 1.41; PARTIAL THROMBOPLASTIN TIME 34.2 Seconds (25.1-36.5); PROTHROMBIN TIME 16.3 SECONDS (9.4-12.5)
[2018-05-09 12:05] LABS: ALB/GLOB RATIO 1.2 (1.1-1.8); ALBUMIN 3.9 g/dL (3.0-4.8); ALT/SGPT 17 U/L (7-56); AST/SGOT 28 U/L (17-59); BLOOD UREA NITROGEN 28 mg/dL (7-21); CALCIUM 9.3 mg/dL (8.4-10.5); GFR NON-AFRICAN AMERICAN > 60
[2018-05-09 12:17] LABS: B-TYPE NATRIURETIC PEPTIDE 2820 pg/mL (0-450); TROPONIN I < 0.01 ng/mL
--- NOTE | 2018-05-09 13:13 | RAD ---
Date of service: 05/09/2018 HISTORY: leg swelling COMPARISON: 02/28/2017 FINDINGS: LUNGS: No active pulmonary disease. PLEURA: No significant pleural effusion identified, no pneumothorax apparent. CARDIOVASCULAR: Moderate cardiomegaly and mild vascular and interstitial congestion. OSSEOUS STRUCTURES: Sternal wires VISUALIZED UPPER ABDOMEN: Normal. OTHER FINDINGS: None. IMPRESSION: Moderate cardiomegaly and mild vascular and interstitial congestion.
--- NOTE | 2018-05-09 16:05 | CARD ---
APPROVED REPORT Date of service: 05/09/2018 EKG Measurement Heart [id number] <Conclusion> Atrial flutter with 4:1 AV conduction T wave abnormality, consider inferolateral ischemia Abnormal ECG
[2018-05-09 17:28] VITALS: BMI 22.9
[2018-05-09] MEDS ORDERED: Pneumococcal 23-Valent Vaccine IM ONE (17:28)
[2018-05-09] MEDS ORDERED: HYDROmorphone 0.5 mg/0.5 ml ISec IVP PRN (21:08)
--- NOTE | 2018-05-10 06:41 | HP ---
date 05/09/18 CHIEF COMPLAINT: Lower extremity pain, swollen legs. HISTORY OF PRESENT ILLNESS: Mr. Blade Escalona is an 82-year-old male, my private patient with a history of congestive heart failure, coronary artery disease, CABG x4, cardiac stenting x4, history of COPD, insomnia, came with . Patient is hard of hearing. Patient came in the ER because of worsening of chronic leg pain, swelling of the left lower extremity from one week. No fever. No chills. No chest pain. No shortness of breath. No headache, no dizziness. Patient has swelling of the leg. PAST MEDICAL HISTORY: Coronary artery disease, congestive heart failure, hypertension, deafness, renal failure, hypothyroidism, shingles, multiple hematoma bruises from using blood thinners, BPH, insomnia, COPD, coronary artery disease, open heart surgery. FAMILY HISTORY: Father and mother, noncontributory. HABITS: Never smoked. No drug. Alcohol use just socially. ALLERGIES: PATIENT IS NOT ALLERGIC WITH ANY MEDICATIONS. HOME MEDICATIONS: Lasix, potassium, vitamins, iron. REVIEW OF SYSTEMS: Patient was seen and examined on the bedside in his room. and nurse were sitting on the bedside also. Having trace swelling of the leg. No fever. No chills. Coughing and sometimes shortness of breath. Bilateral swelling of the legs. No headache. No dizziness. No hematuria or hematochezia. PHYSICAL EXAMINATION: VITAL SIGNS: Temperature 97.7, pulse 70, respiratory rate 18, blood pressure 150/54, pulse oximetry 95%. HEENT: Head: Normocephalic and atraumatic. Eyes: PERRLA. Extraocular muscles are intact. Conjunctivae are clear. Nose patent. Mucous membrane moist. NECK: Supple. No carotid bruit, JVD, or thyromegaly. CHEST: Bilaterally symmetrical. HEART: S1 and S2 positive. LUNGS: Clear to auscultation. ABDOMEN: Soft. Bowel sounds present. No organomegaly. EXTREMITIES: Positive edema. NEUROLOGIC: Patient is awake and alert. Follows simple command. Oriented x3, is hard of hearing. LABORATORY DATA: White blood cells 5.1, hemoglobin 11.4, hematocrit 34.5, platelets 122. Sodium 138, potassium 4.3, BUN 28, creatinine 1, glucose 135. ASSESSMENT AND PLAN: Mr. Blade Escalona is an 82-year-old male with claudications, edema, had history of congestive heart failure, coronary artery bypass grafting x4, coronary stents, deafness, chronic obstructive pulmonary disease, insomnia, came in the hospital for intractable leg pains, claudications. I started him on Ambien, Dilaudid. Dr. Robert Victor's consult written. Gastrointestinal and deep venous thrombosis prophylaxes. Repeat labs. We will follow up. Susie Ward MD MTDD
[2018-05-10 08:13] LABS: BLOOD UREA NITROGEN 27 mg/dL (7-21); CALCIUM 9.5 mg/dL (8.4-10.5); GFR NON-AFRICAN AMERICAN > 60; HDL CHOLESTEROL 45 mg/dL (29-60)
[2018-05-10 08:14] LABS: IRON 77 ug/dL (45-180)
[2018-05-10 08:22] LABS: MEAN CELL VOLUME 90.4 fl (80.0-105.0); MEAN CORPUSCULAR HGB CONC 33.2 g/dl (31.0-37.0); MEAN PLATELET VOLUME 9.8 fl (7.0-11.0); RBC 4.57 10^6/uL (3.5-6.1); RED CELL DISTRIBUTION WIDTH 16.2 % (11.5-14.5)
[2018-05-10 08:23] LABS: LDL CHOLESTEROL 36 mg/dL (0-129)
[2018-05-10 08:25] LABS: % IRON SATURATION 24 % (20-55); TOTAL IRON BINDING CAPACITY 327 ug/dL (261-462)
[2018-05-10 08:32] LABS: HEMOGLOBIN 13.7 g/dL (14.0-18.0); WHITE BLOOD COUNT 7.3 10^3/ul (4.5-11.0)
[2018-05-10] MEDS: Potassium Chloride 20 mEq ER Tab PO SCH (10:58)
[2018-05-10] MEDS: Multivitamin With Minerals Tab PO SCH (10:59)
[2018-05-10 11:17] LABS: FOLATE > 20.0 ng/mL
--- NOTE | 2018-05-10 20:48 | US ---
PROCEDURE: Lower extremity JUAN exam HISTORY: Peripheral vascular disease with pain and claudication. PHYSICIAN(S): Robert Victor MD. FINDINGS: The exam is inaccurate due to calcified vessels. The right JUAN is not obtainable. The left JUAN is inaccurately elevated The brachial systolic pressures are symmetric. The high thigh pressures and waveforms are relatively normal. The calf PVR waveforms augment normally. No significant gradients are noted across the thighs. The ankle and metatarsal waveforms are blunted. This is consistent with bilateral popliteal, trifurcation, and/ or tibial disease IMPRESSION: 1. Bilateral popliteal, trifurcation, and/ or tibial disease 2. Limited study due to calcified vessels
--- NOTE | 2018-05-10 20:49 | US ---
PROCEDURE: Left lower extremity venous US HISTORY: Leg pain and swelling. Evaluate for DVT. PHYSICIAN(S): Robert Victor MD. TECHNIQUE: Duplex sonography and color-flow Doppler with graded compression were used to evaluate the deep venous system of the left lower extremity. FINDINGS: The visualized deep venous system of the left lower extremity is sonographically normal and compressible. Normal wave forms and augmentation are seen. There is no sonographic evidence for deep venous thrombosis in the visualized segments of the left lower extremity. IMPRESSION: 1. No sonographic evidence for deep venous thrombosis in the visualized segments of the left lower extremity.
[2018-05-11] MEDS ORDERED: Morphine 2 mg/ml ISec IVP ONE (00:11)
--- NOTE | 2018-05-11 02:21 | CON ---
DATE: 05/10/2018 PULMONARY CONSULT REFERRING PHYSICIAN: Dr. Ward REASON FOR CONSULTATION: Insomnia, peripheral neuropathy, may have restless leg syndrome, short of breath. HISTORY OF PRESENT ILLNESS: This is 82 years old gentleman known to me from previous admission, history of coronary artery disease, history of coronary artery bypass surgery, also has coronary stents, chronic lung disease, insomnia, comes in with lower extremity pain and discomfort, cannot sleep at night, gets agitated, need to walk. No fever. No chills. No hemoptysis, no hematemesis, no hematuria, no diarrhea reported. PAST MEDICAL HISTORY: As per history of present illness. Also has a history of hypothyroid, hypertension, hard of hearing. ALLERGIES: NONE KNOWN. SOCIAL HISTORY: Denies any smoking or alcohol use. FAMILY HISTORY: No significant cardiopulmonary disease reported. MEDICATIONS: He is on Coreg 12.5 mg twice a day, Dilaudid 0.5 mg every 4 hours p.r.n. potassium 20 mEq daily, Lasix 40 mg daily, metoprolol tartrate 25 mg twice a day, Norvasc 5 mg daily, Pepcid 40 mg daily, Plavix 75 mg daily, Requip 0.5 mg three times a day and multivitamins daily. Received one dose of Ambien last night. REVIEW OF SYSTEMS: No headache, no rhinitis. Short of breath. No cough. No chest pain. No nausea, no vomiting, no diarrhea. Does have a leg pain which increased at nighttime. PHYSICAL EXAMINATION: GENERAL: Sitting up in a chair, having lunch. VITAL SIGNS: Temperature is 98, heart rate is 52, respiratory rate is 20, blood pressure 133/56, pulse ox 96% on room air. HEENT: Moist mucous membrane. Crowded airway. NECK: Supple. No JVD. LUNGS: Have a fair airflow with few rhonchi. HEART: S1 and S2. ABDOMEN: Soft, nontender. No organomegaly. EXTREMITIES: There is not much edema. NEUROLOGIC: Awake and alert, follows simple commands. LABORATORY DATA: Shows hemoglobin 13.7, hematocrit 41.3, WBC of 7.3, platelet is 136. INR 1.41. PTT 34. Sodium 139, potassium 4.3, chloride 101, bicarbonate is 24, BUN 27, creatinine 1. Iron is 77. AST 28, ALT 17, alk phos is 87. ProBNP 2820. Albumin is 3.9. Cholesterol is 100. B12 480. Folate is more than 20. TSH 2.08. Had a chest x-ray done on admission, shows moderate cardiomegaly and mild vascular interstitial congestion. IMPRESSION AND PLAN: Most likely has a restless leg syndrome, history of atrial fibrillation, rate controlled. Also has degenerative joint disease. Case discussed with the patient's at bedside. All the questions answered. We will increase Requip to 1 mg three times a day. May also add Lyrica three times a day. We will see how he respond to it, may have to add Sinemet. Fall precaution. Thank you and we will follow with you. Nabeel Black MD
--- NOTE | 2018-05-11 08:13 | CP.PCM.CON ---
History of Present Illness - History of Present Illness History of Present Illness: Awake, out of bed to chair, on 1:1 sitter,pleasantly confuse,walks around room with cane Reason for consultation: Cardiac evaluation of 2 seconds pause on telemetry.History of atrial fibrillation,admitted for leg swelling Brief history of present illness: An 82 year old male who came in to the ER due to left leg swelling.Cardiac consult was called to evaluate of 2 seconds pause on telemetry.History of atrial fibrillation, history of congestive heart failure ,coronary artery disease,post coronary artery bypass grafting in 1997 (RAMIREZ to LAD, SVG to OM1,SVG to OM2) coronary st[place] [facility] [place] Circum[place] OM2 [place] he follows up at [facility] [place]. peripheral vascular disease, UTI, restless leg syndrome,CVA/TIA, hypertension, hypercholesterolemia, BPH, deafness, hypothyroidism, anemia, shingles, chronic kidney disease. Seen and examined by me and Dr. Blair Review of Systems - Review of Systems All systems: reviewed and no additional remarkable complaints except Review of Systems: from HPI Past Patient History - Infectious Disease Hx of Infectious Diseases: None - Tetanus Immunizations Tetanus Immunization: Unknown - Past Medical History & Family History Past Medical History?: Yes - Past Social History Smoking Status: Never Smoked - CARDIAC Hx Cardiac Disorders: Yes (cad, cabg) Hx Cardia Arrhythmia: Yes (afib) Hx Congestive Heart Failure: Yes Hx Hypercholesterolemia: Yes Hx Hypertension: Yes Hx Peripheral Edema: Yes (+2 pitting left foot cold to touch) Hx Peripheral Vascular Disease: Yes (and pad) Other/Comment: rle cool to touch, lle cold to touch, restless leg syndrome - PULMONARY Hx Respiratory Disorders: No - NEUROLOGICAL Hx Neurological Disorder: Yes HX Cerebrovascular Accident: Yes Hx Transient Ischemic Attacks (TIA): Yes - HEENT Hx HEENT Problems: Yes (DECREASED PHERIPHERAL VISION) Hx Deafness: Yes (DEAF ON RIGHT [place] LEFT) Other/Comment: wears eyeglasses - RENAL Hx Chronic Kidney Disease: Yes Hx Kidney Stones: Yes Hx Renal Failure: Yes - ENDOCRINE/METABOLIC Hx Endocrine Disorders: Yes Hx Hypothyroidism: Yes - HEMATOLOGICAL/ONCOLOGICAL Hx Blood Disorders: Yes Hx Anemia: Yes Hx Shingles: Yes - INTEGUMENTARY Hx Dermatological Problems: Yes (MULTIPLE HEMATOMA AND BRUISING FROM USING BLOOD THINNERS) Other/Comment: ble and both arms skin discolorations hematomas, bruising, moles to back,dry skin, foul body odor - MUSCULOSKELETAL/RHEUMATOLOGICAL Hx Falls: No - GASTROINTESTINAL Hx Gastrointestinal Disorders: Yes (gi bleed) Other/Comment: weight fluctuates from 170 lbs to 150 lbs as per - GENITOURINARY/GYNECOLOGICAL Hx Genitourinary Disorders: Yes Hx Prostate Problems: Yes (BPH PHIMOSIS) Hx Urinary Tract Infection: Yes - PSYCHIATRIC Hx Substance Use: No - SURGICAL HISTORY Hx Surgeries: Yes Hx Cardiac Catheterization: Yes Hx Coronary Stent: Yes (x 7 stents) Hx Open Heart Surgery: Yes Hx Orthopedic Surgery: Yes - ANESTHESIA Hx Anesthesia: Yes Hx Anesthesia Reactions: No Hx Malignant Hyperthermia: No Meds Allergies/Adverse Reactions: Allergies Allergy/AdvReac Type Severity Reaction Status Date / Time No Known Allergies Allergy Verified 12/21/15 16:34 - Medications Medications: Current Medications Amlodipine Besylate (Norvasc) 5 mg PO DAILY [facility] Last Admin: 05/10/18 10:59 Dose: 5 mg Carvedilol (Coreg) 12.5 mg PO BID [facility] Last Admin: 05/10/18 18:07 Dose: Not Given Clopidogrel Bisulfate (Plavix) 75 mg PO DAILY [facility] Last Admin: 05/10/18 10:58 Dose: 75 mg Famotidine (Pepcid) 40 mg PO HS [facility] Last Admin: 05/10/18 22:39 Dose: 40 mg Furosemide (Lasix) 40 mg PO DAILY [facility] Last Admin: 05/10/18 10:58 Dose: 40 mg Metoprolol Tartrate (Lopressor) 25 mg PO BID [facility] Last Admin: 05/10/18 18:07 Dose: Not Given Multivitamins/Minerals (Therapeutic-M Tab) 1 tab PO DAILY [facility] Last Admin: 05/10/18 10:59 Dose: 1 tab Potassium Chloride (K-Dur 20 Meq Er Tab) 20 meq PO DAILY [facility] Last Admin: 05/10/18 10:58 Dose: 20 meq Pregabalin (Lyrica) 50 mg PO BID [facility] Last Admin: 05/10/18 18:48 Dose: Not Given Ropinirole HCl (Requip) 2 mg PO TID [facility] Physical Exam - Constitutional Appears: No Acute Distress - Eye Exam Eye Exam: Normal appearance - ENT Exam ENT Exam: Mucous Membranes Moist - Respiratory Exam Respiratory Exam: Decreased Breath Sounds, NORMAL BREATHING PATTERN - Cardiovascular Exam Cardiovascular Exam: Irregular Rhythm, +S1, +S2 Additional comments: telemetry Atrial fibrillation 70's - GI/Abdominal Exam GI & Abdominal Exam: Normal Bowel Sounds, Soft - Extremities Exam Additional comments: left leg edema, right leg normal - Neurological Exam Neurological exam: Alert Additional comments: confuse,disoriented - Skin Skin Exam: Dry, Warm Results - Vital Signs Recent Vital Signs: Last Vital Signs Temp 97.5 F L 05/11/18 06:00 Pulse 120 H 05/11/18 06:00 Resp 18 05/11/18 06:00 BP 148/79 05/11/18 06:37 Pulse Ox 96 05/11/18 06:00 - Labs Result Diagrams: 05/10/18 06:45 05/10/18 06:45 Assessment & Plan - Assessment and Plan (Free Text) Assessment: An 82 year old male who came in to the ER due to left leg swelling.History of atrial fibrillation, history of congestive heart failure,coronary artery disease ,post coronary artery bypass grafting in 1997 (RAMIREZ to LAD, SVG to OM1, SVG to OM2) coronary stents,(At [facility] [place] PTCA of Circumflex and OM2 05/14/2012), he follows up at [facility] [place], peripheral vascular disease, UTI, restless leg syndrome, CVA /TIA,hypertension, hypercholesterolemia, BPH,deafness,hypothyroidism,anemia, shingles,chronic kidney disease. Cardiac consult was called to evaluate of 2 seconds pause on telemetry, lowest heart rate 33/min. Asymptomatic. Patient is awake, confuse and disoriented. leg swelling work up in progress. Review of previous cardiac work up: 11/29/15- ECHO- Left ventricle borderline dilated, mild concentric hypertrophy LVEF 50%, aortic valve moderately calcified,moderate aoric regurgitation, Mild MR, moderate TR, RVSP 37mmHg, moderate pulmonic valve regurgitation. Mass noted at right coronary cusp possibly healed vegetation versus calcium 11/28/15-Carotid ultrasound (Indication:TIA) Bilateral proximal ICA 60-79% stenosis 11/30/15 MRA of carotids Moderate 60-79% stenosis of ICA Plan: Episode of 2 seconds pause yesterday,asymptomatic Held Coreg and Lopressor yesterday Telemetry Afib at 70/min now Start Eliquis for Afib Episode of 6 beats Ventricular tachycardia tissue technician today Electrolytes normal Will restart low dose Coreg Hold Lopressor for now Holter monitor 12 lead EKG Echo to evaluate LV function Continue current treatment Continue current medications Will follow up Plan and treatment discussed with Dr. Blair Thank you for the opportunity of taking care of Mr. Blade Escalona - Date & Time Date: 05/11/18 Time: 06:35
[2018-05-11] MEDS: Multivitamin With Minerals Tab PO SCH (10:51)
[2018-05-11] MEDS: Potassium Chloride 20 mEq ER Tab PO SCH (10:51)
--- NOTE | 2018-05-11 22:23 | PN ---
DATE: 05/11/2018 PULMONARY PROGRESS NOTE REFERRING PHYSICIAN: Susie Ward MD SUBJECTIVE: He is up and walking in the room, nursing and one to one supervision is underway. Got some sleep last night after Benadryl dose. Leg pain and feeling is much better. No nausea. No vomiting. No diarrhea. No leg swelling. OBJECTIVE: GENERAL: In no acute distress. VITAL SIGNS: Temperature is 98, heart rate is 88, respiratory rate is 20, blood pressure 149/106, pulse ox is 96% on room air. HEENT: Moist mucous membrane. No ulcer or thrush noted. NECK: Supple. No JVD. LUNGS: Have a fair airflow with few rhonchi. HEART: S1 and S2. ABDOMEN: Soft, nontender. No organomegaly. EXTREMITIES: No edema. NEUROLOGICAL: Awake and alert. Follows simple command. MEDICATIONS: He is on Coreg 3.125 mg twice a day, Eliquis 5 mg twice a day, potassium 20 mEq daily, Lasix 40 mg daily. The patient is supposed to be on Lyrica 50 mg twice a day, family refused Lyrica. Norvasc 5 mg daily, Pepcid 40 mg daily, Plavix 75 mg daily, Requip 2 mg three times a day, and multivitamins daily. Received one dose of Benadryl last night and also received lorazepam 2 mg one dose. LABORATORY DATA: Shows no new laboratory data reported since yesterday. IMPRESSION AND PLAN: Severe case of restless leg syndrome, atrial fibrillation, hypertension, dementia. I had a long discussion with the nursing, patient, and patient's , responding well to lorazepam. We will start Klonopin, we will give 1 mg p.o. now and see how he responds. If he does well, may as an outpatient use Klonopin 0.25 mg twice a day. Of course, fall precaution. Continue Requip 1 mg 3 times a day for now. The patient's expressed understanding. Thank you and we will follow with you. Nabeel Black MD
--- NOTE | 2018-05-11 23:19 | PN ---
DATE: 05/11/2018 SUBJECTIVE: Patient was seen and examined on the bedside on 05/11/2018. is on the bedside. The patient is still on one-to-one, confused, walks around the room with cane, but still he is confused. No fever. No chills. No headache. No dizziness. No chest pain. No palpitation. No hematuria or hematochezia. PHYSICAL EXAMINATION: VITAL SIGNS: Temperature 97.5, pulse 120, respiratory rate 18, blood pressure 148/79, pulse oximetry 96%. HEENT: Head: Normocephalic, atraumatic. Eyes: PERRLA. Extraocular muscles intact. Conjunctivae clear. Nose patent. Mucous membrane moist. NECK: Supple. No carotid bruit. No JVD or thyromegaly. CHEST: Bilaterally symmetrical. HEART: S1 and S2 positive. LUNGS: Clear to auscultation. ABDOMEN: Soft. Bowel sounds present. No organomegaly. EXTREMITIES: No edema. No cyanosis. NEUROLOGIC: Patient is awake and alert. Moving all 4 extremities. No focal deficit. LABORATORY DATA: White blood cells 7.3, hemoglobin 13.7, hematocrit 41.3, platelets 136. Sodium 139, potassium 4.3, BUN 27, creatinine 1, glucose 121. ASSESSMENT AND PLAN: Mr. Blade Escalona is an 82-year-old male with anemia; hyperglycemia; came with swelling of the leg; history of atrial fibrillation; history of congestive heart failure; coronary artery disease; post coronary artery bypass graft in 1997; history of coronary stents; severe peripheral vascular disease; history of urinary tract infection; restless leg syndrome; cerebrovascular accident; transient ischemic attack; hypertension; hypercholesterolemia; benign prostatic hypertrophy; deafness; hypothyroidism; history of shingles; chronic kidney disease; history of insomnia; chronic obstructive pulmonary disease; the patient had two sudden pause on telemetry; so, we called Cardiology consult, lowest heart rate was 33; at this moment, the patient is asymptomatic, confused and disoriented, swelling of leg is better; we will continue Pepcid, Lasix, Lopressor, multivitamins, potassium, Lyrica, Requip; because of insomnia, started the patient on Benadryl and melatonin; we will discontinue beta-blockers because of low heart rate; degenerative joint disease. Due to the patient's depression and anxiety, we will call consult with Dr. Arlin Alicea. Fall precautions. Length of time discussion done with the patient's and staff. We will follow up. Susie Ward MD FIDEL
--- NOTE | 2018-05-12 07:42 | CP.PCM.PN ---
Subjective - Date & Time of Evaluation Date of Evaluation: 05/12/18 Time of Evaluation: 06:25 - Subjective Subjective: Sleeping,on 1:1 sitter,agitated last night, per RN had episode of 2 and 4 seconds pause on telemetry Reason for consultation: Cardiac evaluation of 2 seconds pause on telemetry.History of atrial fibrillation,admitted for leg swelling,History of atrial fibrillation, history of congestive heart failure,coronary artery disease ,post coronary artery bypass grafting in 1997 (RAMIREZ to LAD, SVG to OM1,SVG to OM2) [place] st[place] [facility] [place] OM2 [place]2012[place] he follows up at [facility] [place]. peripheral vascular disease, UTI, restless leg syndrome,CVA/TIA, hypertension, hypercholesterolemia, BPH, deafness, hypothyroidism, anemia, shingles, chronic kidney disease. Seen and examined by me and Dr. Blair Objective - Vital Signs/Intake and Output Vital Signs (last 24 hours): Temp Pulse Resp BP Pulse Ox 98.2 F 69 18 129/82 98 05/12/18 06:00 05/12/18 06:00 05/12/18 06:00 05/12/18 06:00 05/12/18 06:00 - Medications Medications: Current Medications Amlodipine Besylate (Norvasc) 5 mg PO DAILY [facility] Last Admin: 05/11/18 10:51 Dose: 5 mg Apixaban (Eliquis) 5 mg PO BID [facility] PRN Reason: Protocol Last Admin: 05/11/18 18:20 Dose: 5 mg Carvedilol (Coreg) 3.125 mg PO BID [facility] Last Admin: 05/11/18 18:21 Dose: 3.125 mg Clonazepam (Klonopin) 0.5 mg PO BID [facility] PRN Reason: Protocol Last Admin: 05/11/18 18:20 Dose: 0.5 mg Clopidogrel Bisulfate (Plavix) 75 mg PO DAILY [facility] Last Admin: 05/10/18 10:58 Dose: 75 mg Diphenhydramine HCl (Benadryl) 25 mg PO HS PRN PRN Reason: Insomnia Famotidine (Pepcid) 40 mg PO HS [facility] Last Admin: 05/11/18 21:23 Dose: 40 mg Furosemide (Lasix) 40 mg PO DAILY [facility] Last Admin: 05/11/18 10:51 Dose: 40 mg Multivitamins/Minerals (Therapeutic-M Tab) 1 tab PO DAILY [facility] Last Admin: 05/11/18 10:51 Dose: 1 tab Potassium Chloride (K-Dur 20 Meq Er Tab) 20 meq PO DAILY [facility] Last Admin: 05/11/18 10:51 Dose: 20 meq Pregabalin (Lyrica) 50 mg PO BID [facility] Last Admin: 05/11/18 18:21 Dose: Not Given Ropinirole HCl (Requip) 2 mg PO TID [facility] Last Admin: 05/11/18 18:20 Dose: 2 mg - Labs Labs: PT 16.3 SECONDS (9.4-12.5) H 05/09/18 11:28 INR 1.41 05/09/18 11:28 APTT 34.2 Seconds (25.1-36.5) 05/09/18 11:28 - Constitutional Appears: No Acute Distress - Eye Exam Eye Exam: Normal appearance - ENT Exam ENT Exam: Mucous Membranes Moist - Respiratory Exam Respiratory Exam: Decreased Breath Sounds, NORMAL BREATHING PATTERN - Cardiovascular Exam Cardiovascular Exam: +S1, +S2 Additional comments: Afib/Alutter 60-70's - GI/Abdominal Exam GI & Abdominal Exam: Soft, Normal Bowel Sounds - Extremities Exam Extremities Exam: Normal Capillary Refill - Skin Skin Exam: Dry, Warm Assessment and Plan - Assessment and Plan (Free Text) Assessment: An 82 year old male who came in to the ER due to left leg swelling.History of atrial fibrillation, history of congestive heart failure,coronary artery disease ,post coronary artery bypass grafting in 1997 (RAMIREZ to LAD, SVG to OM1, SVG to OM2) coronary stents[place] [facility] [place] of Circumflex [place] OM2 [place]/14/2012[place] he follows up at [facility] [place], peripheral vascular disease, UTI, restless leg syndrome, CVA /TIA,hypertension, hypercholesterolemia, BPH,deafness,hypothyroidism,anemia, shingles,chronic kidney disease. Cardiac consult was called to evaluate of 2 seconds pause on telemetry, lowest heart rate 33/min. Asymptomatic. Patient confuse and disoriented. Review of previous cardiac work up: 11/29/15- ECHO- Left ventricle borderline dilated, mild concentric hypertrophy LVEF 50%, aortic valve moderately calcified,moderate aoric regurgitation, Mild MR, moderate TR, RVSP 37mmHg, moderate pulmonic valve regurgitation. Mass noted at right coronary cusp possibly healed vegetation versus calcium 11/28/15-Carotid ultrasound (Indication:TIA) Bilateral proximal ICA 60-79% stenosis 11/30/15 MRA of carotids Moderate 60-79% stenosis of ICA Plan: Confuse and uncooperative,with sitter Episode of 2 and 4 seconds pause brine maker today Will completeley hold Coreg and Lopressor Ordered Holter monitor but refused yesterday Started Eliquis for Afib yesterday Holter monitor today if able ECHO today if cooperative Will reevaluate possible PPM insertion Continue current treatment Continue current medications Will follow up Plan and treatment discussed with Dr. Blair
--- NOTE | 2018-05-12 08:43 | CON ---
DATE: 05/11/2018 REASON FOR DICTATION: This note is an addition to the consult dictated by our nurse practitioner. The patient has a new onset of atrial fibrillation. All previous EKG reviewed. The patient is well known to us from previous admission; as mentioned, history of CABG, history of PTCA, now patient is being followed at [facility]. Admitted at this time with leg problem, found to be new onset of atrial flutter with 4:1 conduction. The patient was unfortunately on two beta blockers, metoprolol and Coreg. There was 2-second pause so that was held. Now the patient is stable this morning with four to five beats of VT. We will resume back low dose of Coreg, discontinue metoprolol and we will discontinue Plavix and start Eliquis 5 mg b.i.d. for atrial fibrillation, also discussed with the family, had informed the family. If the patient gets steady and does not have a high risk of fall, we will continue anticoagulation because the patient is baseline demented and confused also but if the patient has high risk of fall, then we will hold Eliquis because of risk benefit ratio but we will discuss with the family. Further recommendation after discussion with family, but for now, we will start Eliquis and discontinue Plavix. Thank you, Dr. Ward, for providing us the opportunity in taking care of the patient, Blade Escalona. Nabeel Blair MD
--- NOTE | 2018-05-12 09:03 | PN ---
DATE: 05/10/2018 SUBJECTIVE: The patient is an 82-year-old male. The patient was seen and examined at the bedside. Looking comfortable. Terribly confused, oriented x2. Actually last night, nurse called me that the patient cannot sleep. I gave him Ambien 5 mg one dose and now he woke up with confusion. He is on one-to-one. is on the bedside also. I discontinued the Ambien. No nausea or vomiting. Leg pain is better. No headache. No dizziness. PHYSICAL EXAMINATION: VITAL SIGNS: Temperature 97.8, pulse 48, blood pressure 120/80 , respiratory rate 19. HEENT: Head: Normocephalic, atraumatic. Eyes: PERRLA. Extraocular muscles intact. Conjunctivae clear. Nose patent. Mucous membrane moist. NECK: Supple. No carotid bruit. No JVD or thyromegaly. CHEST: Bilaterally symmetrical. HEART: S1 and S2 positive. LUNGS: Clear to auscultation. ABDOMEN: Soft. Bowel sounds present. No organomegaly. EXTREMITIES: No edema. No cyanosis. NEUROLOGICAL: The patient is awake, alert but getting confused. Cranial nerves II through XII are grossly intact. MEDICATIONS: Carvedilol, Dilaudid, potassium, Lasix, Lopressor, Norvasc, Pepcid, Plavix, Requip, multivitamins. LABORATORY DATA: White blood cell 7.3, hemoglobin 13.7, hematocrit 41.3, platelets 136. Sodium 139, potassium 4.3, BUN 27, creatinine 1. Glucose 121. BNP 2820. ASSESSMENT AND PLAN: Patient is an 82-year-old male with anemia, hyperglycemia, rule out congestive heart failure, BNP was high, history of insomnia, cannot tolerate Ambien, and mild confusion, history of arrhythmias. Cardiology consult called. According to the patient's nurse, overnight there is arrhythmia , rhythm so we called paper products machine operator, history of pancreatitis, claudication of the extremities, history of coronary artery disease, coronary artery bypass graft x4, coronary artery stenting, chronic obstructive pulmonary disease. Discontinue Ambien and Neurontin. Continue present treatment. Gastrointestinal and deep venous thrombosis prophylaxes. Clerk [employer] and paper products machine operator is on the case. Repeat labs. We will follow up. Susie Ward MD [facility] # [id number] FIDEL
[2018-05-12] MEDS: Potassium Chloride 20 mEq ER Tab PO SCH (09:34)
[2018-05-12] MEDS: Multivitamin With Minerals Tab PO SCH (09:35)
--- NOTE | 2018-05-12 13:17 | PN ---
DATE: 05/12/2018 TIME: 10:30 a.m. I reviewed the patient's vascular studies. He has bilateral tibial disease, but no obvious rest pain or tissue loss. His venous ultrasound on admission was negative. The swelling is likely related to his cardiac issues. I would not pursue further vascular tests at this time. If his leg swelling continues to be an issue, he can stop by the office and we can fit him for class 1 calf compression stockings. Robert Victor MD MTDD
--- NOTE | 2018-05-12 19:01 | CON ---
DATE: 05/12/2018 HISTORY OF PRESENT ILLNESS: In short, the patient is an 82-year-old male with reported history of CHF, CABG x4, coronary stents x4. The patient was brought by his into the emergency room for evaluation of swelling of his left lower extremities. Psych consult was called because the patient is having episodes of confusion as well as seeing people which is not there. The patient also has restless behavior. This credit underwriter attempted to speak to the patient, but the patient is deeply sedated, was not able to hold interview, but was able to open his eyes and falling back asleep. As per one-to-one sitter, the patient had episodes of agitation and did not have a good night sleep. Collaterals were obtained from the patient's , Shari Escalona, who is next to the patient. Home phone number [phone] as well as another phone number of her sister's house where the patient's is currently in, . As per , Shari, the patient had history of dementia, has history of forgetfulness, but the patient never been lost in the community. The patient is able to bathe himself. The patient is not able to cook for himself. The patient was not able to manage his finances. As per , the patient was diagnosed with dementia. The patient also has episodes of irritable behavior, but no physical aggression. As per , the patient was not sleeping for 2 nights before coming to the hospital, was hallucinating and the patient was seeing baseball team and majority of the time the patient was presenting this way after sun is down. The patient never been diagnosed with depression, never been admitted to the Psychiatric Inpatient Unit, never tried to kill himself in the past. No family history of mental illness. Vital signs reviewed. Temperature 97.9, pulse is 69, respiration is 20, blood pressure 102/57, oxygen saturation is 98. Medications reviewed. The patient was on Klonopin, but Klonopin could give confusion as well as worsening delirium. This credit underwriter switched the patient from Klonopin to Xanax 0.5 mg three times a day as needed. The patient is on Norvasc, Eliquis, Plavix, Benadryl. This credit underwriter will discontinue Benadryl because of anticholinergic side effects. The patient also is on Pepcid, Lasix, potassium chloride, multivitamins, Lyrica. This credit underwriter discussed risks, benefits and alternatives of the Seroquel with the . agreed 12.5 mg as needed for agitation and psychosis. The patient is on Requip. Labs were reviewed. Hemoglobin and hematocrit 13.7 and 41.3. Coagulation reviewed. Chemistry reviewed. MENTAL STATUS EXAMINATION: The patient is deeply sleeping. The patient was able to open his eyes, but falling back asleep. As per , the patient was not sleeping for the past 2 days before coming to the hospital. IMPRESSION: Most likely, multifactorial delirium. PLAN: Seroquel was started. Klonopin was discontinued because long acting and cumulative effect. Xanax, which is short acting will be given as needed. Benadryl was discontinued because it could worsen the confusion. Seroquel 12.5 mg as needed for agitation and sundowning. Discussed with the patient's . Thank you very much for letting me participate in the care of your patient. Should you have any questions, give me a call back. Thank you very much. The patient is on one-to-one, we will continue for now. Arlin Alicea MD MTDBettina
--- NOTE | 2018-05-12 19:06 | CARD ---
APPROVED REPORT Date of service: 05/12/2018 EXAM: Two-dimensional and M-mode echocardiogram with Doppler and color Doppler. INDICATION EVALUTATE LVFX/ HX OF CABG 2D DIMENSIONS Left Atrium (2D)4.6 (1.6-4.0cm)IVSd1.3 (0.7-1.1cm) LVDd4.2 (3.9-5.9cm)PWd1.5 (0.7-1.1cm) LVDs3.0 (2.5-4.0cm)FS (%) 28.7 % LVEF (%)55.6 (>50%) M-Mode DIMENSIONS Aortic Root4.20 (2.2-3.7cm)Aortic Cusp Exc.1.30 (1.5-2.0cm) Aortic Valve AoV Peak Vrviarrp158.0cm/sAoV VTI36.3cmAO Peak GR.20mmHg LVOT Peak Oruvqlxi78.2cm/sLVOT VTI20.60cmAO Mean GR.8mmHg AI P 1/2 Eury595vs Mitral Valve MV E Pppkolic886.0cm/sMV A Ounnhuxn425.0cm/sMV WEF29rn E/A ratio1.2MVA (PHT)2.47cm2 TDI Lateral E' Peak V8.38cm/sE/Lateral E'14.9E/Medial E'0.0 Pulmonary Valve PV Peak Ivgwygzo67.5cm/sPV Peak Grad.1mmHg Tricuspid Valve TR Peak Ienqxzrx099oj/sRAP HPYDDFXH51uiFhNH Peak Gr.39mmHg YGNR24zpTp LEFT VENTRICLE The left ventricle is normal size. There is mild concentric left ventricular hypertrophy. The left ventricular function is normal.EF-55-60% ( A fib) There is normal LV segmental wall motion. a fib/ a flutter, could not be assessed (diastolic Fx) No left ventricle thrombus noted on this study. There is no ventricular septal defect visualized. There is no left ventricular aneurysm. There is no mass noted in the left ventricle. RIGHT VENTRICLE The right ventricle is mildly dilated. There is normal right ventricular wall thickness. The right ventricular systolic function is normal. ATRIA The left atrium is mildly dilated. The right atrium is mildly dilated. The interatrial septum is intact with no evidence for an atrial septal defect. AORTIC VALVE The aortic valve is calcified and displays decreased opening. There is mild to moderate aortic regurgitation. There is mild valvular aortic stenosis. There is no aortic valvular vegetation. MITRAL VALVE The mitral valve is thickened but opens well. Mitral annular calcification is mild to moderate. Mitral regurgitation is mild. There is no mitral valve stenosis. There is no evidence of mitral valve prolapse. TRICUSPID VALVE The tricuspid valve leaflets are thickened , but open well. There is moderate tricuspid regurgitation.RVSP-49 mmof hg, There is mild pulmonary hypertension. There is no tricuspid valve stenosis. There is no tricuspid valve prolapse or vegetation. PULMONIC VALVE The pulmonic valve is mildly thickened. There is mild to moderate pulmonic valvular regurgitation. There is no pulmonic valvular stenosis. GREAT VESSELS The aortic root is normal in size. The ascending aorta is normal in size. The pulmonary artery is normal. The IVC is normal in size and collapses >50% with inspiration. PERICARDIAL EFFUSION There is no pleural effusion. There is no pericardial effusion. <Conclusion> The left ventricle is normal size. There is mild concentric left ventricular hypertrophy. The left ventricular function is normal.EF-55-60% ( A fib) There is mild valvular aortic stenosis. There is mild to moderate aortic regurgitation. Mitral regurgitation is mild. There is moderate tricuspid regurgitation.RVSP-49 mmof hg, There is mild pulmonary hypertension. There is mild to moderate pulmonic valvular regurgitation. The IVC is normal in size and collapses >50% with inspiration. There is no pericardial effusion.
--- NOTE | 2018-05-12 22:49 | PN ---
DATE: 05/12/2018 PULMONARY PROGRESS NOTE REFERRING PHYSICIAN: Susie Ward MD. SUBJECTIVE: He is standing with the help of with one-to-one supervision, has a good night sleep. No more leg pain. A little unsteady on the feet, sleepy, arousable. No chest pain, no nausea, no vomiting, no diarrhea. Reported bradycardia when sleeping. PHYSICAL EXAMINATION: GENERAL: In no acute distress. VITAL SIGNS: Temperature is 98, heart rate is 69, respiratory rate is 20, blood pressure 102/57, pulse ox 98% on nasal cannula. HEENT: Moist mucous membrane. No ulcer or thrush noted. NECK: Supple. No JVD. LUNGS: Have a fair airflow with rhonchi. HEART: S1 and S2. ABDOMEN: Soft, nontender. No organomegaly. EXTREMITIES: No edema. NEUROLOGIC: Awake, alert, and follows simple commands. MEDICATIONS: Eliquis 5 mg daily, potassium 20 mEq daily, Lasix 40 mg daily, Lyrica 50 mg twice a day, Norvasc 5 mg daily, Pepcid 40 mg daily, Plavix 75 mg daily, Requip 2 mg three times a day, Seroquel 12.5 mg at bedtime p.r.n., multivitamins daily, Xanax 0.5 mg p.r.n. LABORATORY DATA: Shows hemoglobin 13.7, that was day before yesterday. No other lab is available. Had extremity ultrasound arterial done, which is unremarkable for any significant vascular disease. Echocardiogram done, report is still pending. IMPRESSION AND PLAN: Severe case of restless leg syndrome, atrial fibrillation, hypertension, dementia, bradycardiac occasionally on the monitor, being followed by Cardiology. Has echocardiogram done. Spoke with Dr. Ward in detail. We will decrease Klonopin dose and continue Requip 3 times a day. Family and the patient refused to take Lyrica. Careful with fall. expressed understanding about his high risk of fall, cannot get up himself and walk, need help. Thank you and we will follow with you. Nabeel Black MD [facility] # [id number]
--- NOTE | 2018-05-13 03:02 | PN ---
DATE: 05/12/2018 SUBJECTIVE: The patient is 82 years old male. The patient was seen and examined on the bedside on 05/12/2018, looking comfortable, sleepy, arousable. According to nursing staff, the patient was not sleeping last night, still getting one to one, agitated, 2-4 seconds of pause on telemetry, seen by the sandwich counter attendant, vascular specialist and hand leather trimmer. No fever, no chills. No headache, no dizziness. Still complaining about leg pain. PHYSICAL EXAMINATION VITAL SIGNS: Temperature 98.2, pulse 59, respiratory rate 18, blood pressure 129/82, pulse oximetry 98. HEENT: Head: Normocephalic, atraumatic. Eyes: PERRLA. Extraocular muscles intact. Conjunctivae clear. Nose patent. Mucous membrane moist. NECK: Supple. No carotid bruit. No JVD or thyromegaly. CHEST: Bilaterally symmetrical. HEART: S1 and S2 positive. LUNGS: Clear to auscultation. ABDOMEN: Soft. Bowel sounds present. No organomegaly. EXTREMITIES: No edema. No cyanosis. NEUROLOGIC: The patient is sleepy, arousable. Moving all 4 extremities. Obese. Follows simple order. MEDICATIONS: Coreg, Klonopin, Plavix, Benadryl, Pepcid, Lasix, K-Dur, Lyrica, Requip. LABORATORY DATA: White blood cells 7.3, hemoglobin 13.7, hematocrit 41.3, platelets 136. Sodium 139, potassium 4.3, BUN 27, creatinine 1, glucose 121. BNP 2820. ASSESSMENT AND PLAN: Mr. Blade Escalona is an 82-year-old male with hyperglycemia; congestive heart failure; has history of depression and anxiety; especially restless; seen by Dr. Arlin Alicea, psychiatrist; history of coronary artery bypass graft x4, coronary stent x4. The patient is getting episodes of confusion . According to psychiatrist, the patient has most likely multifactorial delirium. Seroquel was started. Klonopin was discontinued because of long-acting and cumulative effect. Xanax, which is short-acting will be given as needed. Seroquel started 12.5. Discussion done with the patient's multiple times. I reviewed Dr. Robert Victor's communication, also appreciated. Discussion done with Dr. Black. History of atrial fibrillation, peripheral vascular disease, urinary tract infection, restless legs syndrome, cerebrovascular accident, transient ischemic attack, hypertension, hypercholesterolemia, benign prostatic hypertrophy, deafness, hypothyroidism, anemia, history of shingles, chronic kidney disease, chronic obstructive pulmonary disease, insomnia, lowest heart rate was 33, asymptomatic. ultrasound was reviewed. Coreg and Lopressor hold. Holter monitor, echo done. Continue Requip. Appreciated all consultants' input. Repeat labs. We will follow up. Susie Ward MD MTDBettina
--- NOTE | 2018-05-13 06:55 | CP.PCM.PN ---
Subjective - Date & Time of Evaluation Date of Evaluation: 05/13/18 Time of Evaluation: 06:20 - Subjective Subjective: easily awaken,on 1:1 sitter, per RN had episode of multiple 3 seconds pause on telemetry Reason for consultation: Cardiac evaluation of 2 seconds pause on telemetry.History of atrial fibrillation,admitted for leg swelling,History of atrial fibrillation, history of congestive heart failure,coronary artery disease ,post coronary artery bypass grafting in 1997 (RAMIREZ to LAD, SVG to OM1,SVG to OM2) [place] [facility] [place]2 [place] Seen and examined by me and Dr. Blair Objective - Vital Signs/Intake and Output Vital Signs (last 24 hours): Temp Pulse Resp BP Pulse Ox 97.8 F 60 20 147/64 95 05/13/18 06:00 05/13/18 06:00 05/13/18 06:00 05/13/18 06:00 05/13/18 06:00 Intake and Output: 05/12/18 05/13/18 18:59 06:59 Intake Total 300 Output Total 0 Balance 300 - Medications Medications: Current Medications Alprazolam (Xanax) 0.5 mg PO TID PRN; Protocol PRN Reason: Anxiety Apixaban (Eliquis) 5 mg PO BID RADU PRN Reason: Protocol Last Admin: 05/12/18 18:19 Dose: Not Given Clopidogrel Bisulfate (Plavix) 75 mg PO DAILY [facility] Last Admin: 05/10/18 10:58 Dose: 75 mg Famotidine (Pepcid) 40 mg PO HS [facility] Last Admin: 05/12/18 21:51 Dose: 40 mg Furosemide (Lasix) 20 mg PO DAILY [facility] Last Admin: 05/12/18 18:56 Dose: Not Given Multivitamins/Minerals (Therapeutic-M Tab) 1 tab PO DAILY [facility] Last Admin: 05/12/18 09:35 Dose: 1 tab Potassium Chloride (K-Dur 20 Meq Er Tab) 20 meq PO DAILY [facility] Last Admin: 05/12/18 09:34 Dose: 20 meq Quetiapine Fumarate (Seroquel) 12.5 mg PO HS PRN; Protocol PRN Reason: agitation/psychosis Ropinirole HCl (Requip) 2 mg PO TID [facility] Last Admin: 09/10/18 18:19 Dose: Not Given - Labs Labs: PT 16.3 SECONDS (9.4-12.5) H 05/09/18 11:28 INR 1.41 05/09/18 11:28 APTT 34.2 Seconds (25.1-36.5) 05/09/18 11:28 - Constitutional Appears: No Acute Distress - Eye Exam Eye Exam: Normal appearance - ENT Exam ENT Exam: Mucous Membranes Dry - Respiratory Exam Respiratory Exam: Decreased Breath Sounds, Clear to Ausculation Bilateral, NORMAL BREATHING PATTERN - Cardiovascular Exam Cardiovascular Exam: Irregular Rhythm, +S1, +S2 Additional comments: Afib/aflutter 60's - GI/Abdominal Exam GI & Abdominal Exam: Soft, Normal Bowel Sounds - Extremities Exam Additional comments: 1-2+left leg edema - Neurological Exam Neurological Exam: Alert, Awake Additional comments: confuse/disoriented - Skin Skin Exam: Dry, Warm Assessment and Plan - Assessment and Plan (Free Text) Assessment: An 82 year old male who came in to the ER due to left leg swelling.History of atrial fibrillation, history of congestive heart failure,coronary artery disease ,post coronary artery bypass grafting in 1997 (RAMIREZ to LAD, SVG to OM1, SVG to OM2) coronary st[place],([place] [facility] [place] OM2 [place] [facility] [place], peripheral vascular disease, UTI, restless leg syndrome, CVA /TIA,hypertension, hypercholesterolemia, BPH,deafness,hypothyroidism,anemia, shingles,chronic kidney disease. Cardiac consult was called to evaluate of 2 seconds pause on telemetry, lowest heart rate 33/min. Asymptomatic. Patient confuse and disoriented. refused Holter monitor, episodes of 2-3 seconds pauses yesterday and today. Plan: ECHO done-Normal LV, LVEF 55-60% (Afib),mild valvular aortic stenosis, moderate aortic regurgitation,mild MR, moderate TR, RVSP-49 mmHg, mild pulmonary hypertension,moderate pulmonic valvular regurgitation no pericardial effusion Episodes of 2-3 seconds pauses yesterday and today Held Coreg and Lopressor Will reorder Holter monitor, (refused the other day at the peak of confusion and agitation) Started Eliquis for Afib Possible PPM insertion Continue current treatment Continue current medications Will follow up Plan and treatment discussed with Dr. Blair
[2018-05-13 07:33] LABS: HEMOGLOBIN 12.2 g/dL (14.0-18.0); MEAN CELL VOLUME 90.9 fl (80.0-105.0); MEAN CORPUSCULAR HGB CONC 33.1 g/dl (31.0-37.0); MEAN PLATELET VOLUME 10.2 fl (7.0-11.0); RBC 4.06 10^6/uL (3.5-6.1); RED CELL DISTRIBUTION WIDTH 16.1 % (11.5-14.5); WHITE BLOOD COUNT 6.9 10^3/ul (4.5-11.0)
[2018-05-13 08:05] LABS: ALB/GLOB RATIO 1.1 (1.1-1.8); ALBUMIN 3.5 g/dL (3.0-4.8); ALT/SGPT 19 U/L (7-56); AST/SGOT 22 U/L (17-59); BLOOD UREA NITROGEN 24 mg/dL (7-21); CALCIUM 9.1 mg/dL (8.4-10.5); GFR NON-AFRICAN AMERICAN > 60
[2018-05-13] MEDS: Multivitamin With Minerals Tab PO SCH (10:44)
[2018-05-13] MEDS: Potassium Chloride 20 mEq ER Tab PO SCH (10:44)
--- NOTE | 2018-05-13 12:58 | PN ---
DATE: 05/13/2018 REASON FOR CONSULTATION AND FOLLOWUP: This is an addendum for initial progress note dictated this morning. Telemetry is reviewed, multiple pauses, more than 3 seconds over the last night at 1 a.m. when the patient was sleeping. In view of above, we will schedule pacemaker though initial plan was for Holter, but the patient keep on refusing the Holter and pulling it out and multiple pause, so, we will schedule for pacemaker tomorrow at 3 p.m. The patient got last dose of Eliquis tomorrow at 6 p.m. So, we will give her at least 48 hours off Plavix, off Eliquis. I discussed with the nurse taking care. I discussed with the , left the message to her to come back and talk to her. We will keep n.p.o. after 12 midnight for pacemaker tomorrow. We will cancel the Holter for now and because the patient is pulling out and since the patient has multiple pauses on the telemetry. We will try to reach the again. We will keep n.p.o. after breakfast for pacemaker at 3 p.m. Nabeel Blair MD
--- NOTE | 2018-05-13 19:11 | PN ---
DATE: 05/13/2018 SUBJECTIVE: The patient was followed up today in regards to the mental status. The patient is improved significantly. The patient was oriented, was able to talk. The patient reported that he had the most peaceful night ever. The patient's thought process seems to be well organized, but at times circumstantial and tangential. There is no agitation or aggression. The patient was alert and oriented in self and place. VITAL SIGNS: Stable. Temperature 97.1, pulse is 83, blood pressure 139/50, respiration 19. MEDICATIONS: Reviewed. The patient was on Xanax 0.5 mg three times a day, but the patient did not take that medication. The patient is on Colace, Plavix, Pepcid, Lasix, multivitamins, K-Dur, Seroquel 12.5 mg at the nighttime for psychosis and agitation, but the patient did not require any Seroquel. The patient also is on Requip. LABORATORY DATA: Reviewed. Seems to be stable. Coagulation reviewed. Chemistry reviewed. Notes from Cardiology reviewed. Primary care physician's notes also was reviewed. MENTAL STATUS EXAMINATION: The patient presented to be alert. The patient is talkative to compare with yesterday, much improvement with mental status. Mood described as improving and feeling better. Affect was reactive. Mood congruent. Thought process seems to be circumstantial, but more coherent and goal directed. Thought content, the patient denied visual, auditory or tactile hallucinations. Denied paranoid ideation. The patient denied thoughts of harming himself or others. Denied intent or plan. Insight and judgment seems to be improving. Impulses are well controlled. IMPRESSION: Most likely the patient was in delirium stage, which is improving. PLAN: Continue current medication, current management. The patient has pacemaker scheduled for tomorrow. We will follow up and advise accordingly. Thank you very much for letting me participate in the care of your patient. Arlin Alicea MD
--- NOTE | 2018-05-13 20:56 | PN ---
DATE: 05/13/2018 PULMONARY PROGRESS NOTE REFERRING PHYSICIAN: Susie Ward MD. SUBJECTIVE: The patient is sitting up in a bed, is at bedside, feeding him dinner, much more awake and alert. No more leg pain today. Slept well last night. A little unsteady on his feet. No chest pain. No vomiting. No hematuria. No diarrhea. PHYSICAL EXAMINATION: GENERAL: In no acute distress. VITAL SIGNS: Temperature is 98, heart rate is 88, respiratory rate is 19, blood pressure 139/50. HEENT: Moist mucous membrane. No ulcer or thrush noted. NECK: Supple. No JVD. LUNGS: Have a fair airflow with rhonchi. HEART: S1 and S2. ABDOMEN: Soft, nontender, no organomegaly. EXTREMITIES: There is no edema. NEUROLOGIC: Awake, alert, and follows simple command. MEDICATIONS: He is on Eliquis 5 mg twice a day, K-Dur 20 mEq daily, Lasix 20 mg daily, Pepcid 40 mg daily, Plavix 75 mg daily, Requip 2 mg three times a day, Seroquel 12.5 mg at bedtime p.r.n., multivitamins daily, Xanax 0.5 mg three times a day p.r.n. LABORATORY DATA: Shows hemoglobin 12.2, hematocrit 36.9, WBC 6.9, platelet count is 138. Sodium 139, potassium 2.9, chloride 101, bicarbonate 28, BUN 24, creatinine 1, glucose 138, calcium is 9.1, magnesium 2.3. AST 22, ALT 19, alk phos is 82. Albumin is 3.5. TSH 2.08. IMPRESSION AND PLAN: Severe restless leg syndrome, atrial fibrillation, hypertension, dementia, and bradycardia, rate goes down to 30. Pulmonary point of view, doing okay. Seen Cardiology, scheduled for pacemaker tomorrow. Once the pacemaker in, may discontinue Lasix and potassium. Continue Requip 2 mg three times a day. If leg pain is better, may cut down 1 mg three times a day, also seen by Psychiatry, on Xanax and Seroquel. Spoke to the patient's at bedside. All the questions answered. Thank you and we will follow with you. Nabeel Black MD
--- NOTE | 2018-05-14 07:13 | CP.PCM.PN ---
Subjective - Date & Time of Evaluation Date of Evaluation: 05/14/18 Time of Evaluation: 06:25 - Subjective Subjective: No distress, easily awaken,on 1:1 sitter, per RN had episode of long pause about 5 seconds on telemetry, patient sleeping. Reason for consultation and follow up: Cardiac evaluation of 2 seconds pause on telemetry.History of atrial fibrillation,admitted for leg swelling,History of atrial fibrillation, history of congestive heart failure,coronary artery disease ,post coronary artery bypass grafting in 1997 (RAMIREZ to LAD, SVG to OM1,SVG to OM2) coronary stents,(At [facility] [place] [facility] of Circumflex and OM2 05/14/2012). Seen and examined by me and Dr. Blair Objective - Vital Signs/Intake and Output Vital Signs (last 24 hours): Temp Pulse Resp BP Pulse Ox 97.6 F 62 20 127/70 95 05/14/18 00:01 05/14/18 06:00 05/14/18 06:00 05/14/18 06:00 05/14/18 06:00 Intake and Output: 05/14/18 05/14/18 06:59 18:59 Intake Total 480 Balance 480 - Medications Medications: Current Medications Alprazolam (Xanax) 0.5 mg PO TID PRN; Protocol PRN Reason: Anxiety/insomnia Last Admin: 05/13/18 18:00 Dose: 0.5 mg Apixaban (Eliquis) 5 mg PO BID [facility] PRN Reason: Protocol Last Admin: 05/13/18 14:02 Dose: Not Given Clopidogrel Bisulfate (Plavix) 75 mg PO DAILY [facility] Last Admin: 05/10/18 10:58 Dose: 75 mg Famotidine (Pepcid) 40 mg PO HS [facility] Last Admin: 05/13/18 22:23 Dose: Not Given Furosemide (Lasix) 20 mg PO DAILY [facility] Last Admin: 05/13/18 10:43 Dose: 20 mg Multivitamins/Minerals (Therapeutic-M Tab) 1 tab PO DAILY [facility] Last Admin: 05/13/18 10:44 Dose: 1 tab Potassium Chloride (K-Dur 20 Meq Er Tab) 20 meq PO DAILY [facility] Last Admin: 05/13/18 10:44 Dose: 20 meq Quetiapine Fumarate (Seroquel) 12.5 mg PO HS PRN; Protocol PRN Reason: agitation/psychosis Ropinirole HCl (Requip) 2 mg PO TID [facility] Last Admin: 05/13/18 17:59 Dose: 2 mg - Labs Labs: 05/13/18 07:00 05/13/18 07:00 PT 16.3 SECONDS (9.4-12.5) H 05/09/18 11:28 INR 1.41 05/09/18 11:28 APTT 34.2 Seconds (25.1-36.5) 05/09/18 11:28 - Constitutional Appears: No Acute Distress - Eye Exam Eye Exam: Normal appearance - ENT Exam ENT Exam: Mucous Membranes Moist - Respiratory Exam Respiratory Exam: Decreased Breath Sounds, NORMAL BREATHING PATTERN - Cardiovascular Exam Cardiovascular Exam: Irregular Rhythm, +S1, +S2 Additional comments: Afib/aflutter- Telemetry - GI/Abdominal Exam GI & Abdominal Exam: Soft, Normal Bowel Sounds - Extremities Exam Additional comments: left foot 1-2+edema - Neurological Exam Neurological Exam: Alert, Awake - Psychiatric Exam Psychiatric exam: Normal Affect - Skin Skin Exam: Intact, Warm Assessment and Plan - Assessment and Plan (Free Text) Assessment: An 82 year old male who came in to the ER due to left leg swelling.History of atrial fibrillation, history of congestive heart failure,coronary artery disease ,post coronary artery bypass grafting in 1997 (RAMIREZ to LAD, SVG to OM1, SVG to OM2) coronary stents,(At [facility] [place] [facility] of Circumflex and OM2 05/14/2012), he follows up at [facility] [place], peripheral vascular disease, UTI, restless leg syndrome, CVA /TIA,hypertension, hypercholesterolemia, BPH,deafness,hypothyroidism,anemia, shingles,chronic kidney disease. Cardiac consult was called to evaluate of 2 seconds pause on telemetry, lowest heart rate 33/min. Asymptomatic. Patient confuse and disoriented. refused Holter monitor, episodes of 2-3 seconds pauses for the past 2 days.Today 5 seconds pause Sleeping). 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 Blair
[2018-05-14 07:15] LABS: INR 1.79; PROTHROMBIN TIME 20.8 SECONDS (9.4-12.5)
[2018-05-14 07:38] LABS: ALB/GLOB RATIO 1.1 (1.1-1.8); ALBUMIN 3.4 g/dL (3.0-4.8); ALT/SGPT 21 U/L (7-56); AST/SGOT 22 U/L (17-59); BLOOD UREA NITROGEN 28 mg/dL (7-21); CALCIUM 9.1 mg/dL (8.4-10.5); GFR NON-AFRICAN AMERICAN > 60
[2018-05-14 08:13] LABS: BASO # 0.06 K/mm3 (0.0-2.0); BASO % 1.1 % (0.0-3.0); EOS # 0.9 (0.0-0.7); EOS % 15.8 % (1.5-5.0); GRAN # 2.36 (1.4-6.5); GRAN % 42.7 % (50.0-68.0); HEMOGLOBIN 11.7 g/dL (14.0-18.0); LYMPH # 1.7 (1.2-3.4); LYMPH % 30.8 % (22.0-35.0); MEAN CELL VOLUME 91.4 fl (80.0-105.0); MEAN CORPUSCULAR HEMOGLOBIN 29.6 pg (25.0-35.0); MEAN CORPUSCULAR HGB CONC 32.4 g/dl (31.0-37.0); MEAN PLATELET VOLUME 10.4 fl (7.0-11.0); MONO # 0.5 (0.1-0.6); MONO % 9.6 % (1.0-6.0); RBC 3.95 10^6/uL (3.5-6.1); RED CELL DISTRIBUTION WIDTH 16.3 % (11.5-14.5); WHITE BLOOD COUNT 5.5 10^3/ul (4.5-11.0)
--- NOTE | 2018-05-14 08:14 | PN ---
DATE: 05/13/2018 SUBJECTIVE: The patient is 82-year-old male. The patient was seen and examined on the bedside on 05/13/2018, looking comfortable. Still is on one-to-one, more awake and alert. Leg pain is better. Has good relief. Appetite is improving. No fever, no chills. Looks like he is deconditioned. PHYSICAL EXAMINATION VITAL SIGNS: Temperature 98, heart rate 88, respiratory rate 19, blood pressure 139/50. HEENT: Head: Normocephalic, atraumatic. Eyes: PERRLA. Extraocular muscles intact. Conjunctivae clear. Nose patent. Mucous membrane moist. NECK: Supple. No carotid bruit. No JVD or thyromegaly. CHEST: Bilaterally symmetrical. HEART: S1 and S2 positive. LUNGS: Clear to auscultation. ABDOMEN: Soft. Bowel sounds present. No organomegaly. EXTREMITIES: No edema, no cyanosis. NEUROLOGIC: The patient is awake, alert. Follows simple commands. MEDICATIONS: Eliquis, potassium, Pepcid, Plavix, Requip, Seroquel, multivitamins, Xanax. LABORATORY DATA: Hemoglobin 12.2, hematocrit 36.9, white blood cell 6.9, platelets 138. Sodium 139, potassium 2.9, BUN 24, creatinine 1. AST 22, ALT 19. ASSESSMENT AND PLAN: Mr. Blade Escalona is 82-year-old male with restless leg syndrome, atrial fibrillation, hypertension, hypercholesterolemia, coronary artery disease, dementia, bradycardia, goes up to 30s sometime. Track And Field Coach and fundraising consultant are on the case. Scheduled for pacemaker tomorrow. Need good physical therapy. Continue Requip three times a day and as per Dr. Black, as soon as pain will get better, we will decrease Requip 1 mg three times a day. Psych, Pulmonary, and Cardiology is on the case, on Xanax and Seroquel as per as Dr. Arlin Alicea. Repeat labs. Need good physical therapy. We will follow up. Susie Ward MD FIDEL
[2018-05-14] MEDS: Potassium Chloride 20 mEq ER Tab PO SCH (09:18)
[2018-05-14] MEDS: Multivitamin With Minerals Tab PO SCH (09:18)
--- NOTE | 2018-05-14 14:53 | PN ---
DATE: 05/14/2018 PULMONARY PROGRESS NOTE REFERRING PHYSICIAN: Susie Ward MD SUBJECTIVE: He is sitting on the side of the bed. Physical Therapy is at bedside. Feels much better. Leg pain is much better. Scheduled for pacemaker today. No headache. No rhinitis. No nausea. No vomiting. No diarrhea. OBJECTIVE: GENERAL: In no acute distress. VITAL SIGNS: Temp is 98, heart rate is 73, respiratory rate is 20, blood pressure 135/91, pulse ox 95% on room air. HEENT: Moist mucous membrane. No ulcer or thrush noted. NECK: Supple. No JVD. LUNGS: Have a fair airflow with rhonchi. HEART: S1 and S2. ABDOMEN: Soft and nontender. No organomegaly. EXTREMITIES: No edema. NEUROLOGICAL: Awake and alert. Follows simple command. MEDICATIONS: He is on Eliquis, which is on hold; potassium is on hold; Lasix is on hold; Pepcid is on hold; Plavix is 75 mg daily; Requip he is on 2 mg three times a day; Seroquel 12.5 mg at bedtime p.r.n.; multivitamins daily; Xanax 0.5 mg three times a day p.r.n. LABORATORY DATA: Shows hemoglobin 11.7, hematocrit 36.1, WBC 5.5, platelet count is 135. INR 1.79. Sodium 139, potassium 4.2, chloride 103, bicarbonate 28, BUN 28, creatinine 0.9, calcium is 9.1, phosphorus 3.4, magnesium 2.3, AST 22, ALT 21, alk phos is 89, albumin is 3.4. IMPRESSION AND PLAN: Severe restless legs syndrome, atrial fibrillation, hypertension, dementia, bradycardia. Pulmonary point of view, doing okay. Restless legs is much better. Continue Requip 2 mg three times a day. Also on Seroquel and Xanax p.r.n. basis. Spoke to the patient's . All the questions answered. Fall precaution. Scheduled for pacemaker today. May discontinue Lasix and potassium after pacemaker placement if okay with Cardiology. Thank you and we will follow with you. Nabeel Black MD
[2018-05-14] MEDS ORDERED: Midazolam 2 MG/2 ML VIAL ONE (15:17)
[2018-05-14] MEDS ORDERED: Metoprolol 1 mg/ml Inj IVP ONE (16:25)
--- NOTE | 2018-05-14 17:03 | CARD ---
APPROVED REPORT Date of service: 05/14/2018 HISTORY The Patient is a 82 year-old male with a history of CAD s/p PTCA, CABG admitted with A flutter tach Dusty syndrome PROCEDURES Insertion Single Chamber Ventricle Pacemaker INDICATIONS SSS A fib / aflutter Tachy-Dusty syndrome Multiple pauses more than 4-5 seconds off beta abbe CONSCIOUS SEDATION AGENTS Versed Fentanyl IMPLANTED DEVICES Medtronic [id number]... Ventricular Olga lead, Medtronic Pulse generator....SENSIA [id number], Medtronic OPERATIVE NOTE The patient was brought to the Cardiac Catheterization Laboratory in a fasting state and was prepped and draped in a sterile manner. The left subclavian region was infiltrated with 2% Lidocaine, subcutaneous anesthesia. A transverse incision was made in the left subclavicular area. The subcutaneous pocket was formed via blunt dissection, Percutaneous venous access was achieved and an introducer sheath was inserted into the Lt Subclavian vein. Through the introducer sheath, the ventricular lead wire was postitioned in the right ventricular apex utilizing fluoroscopic guidance. The ventricular was advanced over the wire under fluoroscopic guidance and positioned in the right ventricle. Capturing and sensing thresholds were verified. THE VENTRICULAR ELECTRODE PARAMETERS R WAVE 8.3 THRESHOLD1.0 RESISTANCE 700 The ventricular lead was then secured using silk 0. The subcutaneous pocket was irrigated with Betadine. The ventricular lead was attached to the appropriate receptacle on the pulse generator and set screws firmly tightened to insure adequate contact and stability. The lead and pulse generator were placed into the subcutaneous pocket. Sharp and sponge counts were confirmed to be correct. At this time the pocket was closed subcutaneously with a Vicryl 2.0 and the skin was closed with a Vicryl 4.0 .The operative site was dressed in sterile fashion. The patient tolerated the procedure well and was transferred to the floor in stable condition. COMPLICATIONS The patient tolerated the procedure well and there were no complications associated with the procedure. CONCLUSION Successful Implantation of PPM VVIR, Medtronic ( SENSIA) Resume Eliquis for [employer]/ Flutter from tomorrow and beta abbe from tonight. Cc; Drs. Ward / Omari
--- NOTE | 2018-05-14 17:04 | CPOSTOP ---
DATE: 05/14/2018 CARDIOVASCULAR LAB POSTPROCEDURE NOTE DICTATING PHYSICIAN: Nabeel Blair MD PIPELINE ENGINEER: Aminata senior engineering technician. TYPE OF ANESTHESIA: Moderate conscious sedation. Total 3 mg of Versed, 100 of fentanyl given. Periodically started 1 mg of Versed and 50 of fentanyl. PRE-PROCEDURE DIAGNOSES: Tachycardia bradycardia syndrome, sick sinus syndrome, multiple pauses more than 5 seconds. PROCEDURE PERFORMED: Implantation of permanent pacemaker, single chamber VVI Medtronic. FINDINGS: Sick sinus syndrome. FINAL DIAGNOSIS: Tachycardia bradycardia syndrome. POST PROCEDURE CONDITION: Post procedure, the patient's condition is stable. VASCULAR ACCESS SITE: Left subclavian vein. CLOSURE DEVICE: Dermabond applied. TOTAL RADIATION DOSE: 1029.1 milligray unit. TOTAL FLUORO TIME: 2.3 minutes. Nabeel Blair MD
--- NOTE | 2018-05-14 18:09 | PN ---
DATE: 05/14/2018 FOLLOWUP NOTE SUBJECTIVE: The patient was followed up today. In regards of the mental status, the patient improved significantly. The patient was oriented, was able to provide history. The patient reported that his night was very peaceful. The patient reported that he does not feel depressed. Denied any thoughts of harming himself or others. As per collateral information from the nursing staff as well as the patient's , the patient has episodes of confusion, but majority of the time it is over nighttime, but at the same time, the patient does not exhibit any aggressive or agitated behavior. The patient is compliant with the medications and unit rules. The patient is scheduled for pacemaker today. The patient is aware of that plan. Vital signs are stable. Temperature 97.9, pulse is 73, blood pressure 135/91, respirations 20, oxygen saturation is 95. Medications reviewed. The patient was on Xanax three times a day as needed, last dose was yesterday at the evening time. The patient is on Plavix, Pepcid, Lasix, multivitamins, K-Dur, Seroquel only as needed for agitation. The patient was not agitated and did not take that medication. The patient is on ropinirole. Labs were reviewed, most recent was from today, stable. MENTAL STATUS EXAMINATION: The patient is talkative, pleasant, cooperative. There is no agitation or aggression. The patient has periods of confusion. Fair eye contact. Mood reported as good. Affect was reactive, mood congruent. Thought process at times circumstantial. Thought content, the patient denied visual, auditory or tactile hallucinations. Denied paranoid ideation. The patient denied thoughts of harming himself or others. Denied intents or plan. Insight and judgment seems to be improving. Impulses are well controlled. IMPRESSION: Most likely the patient has early stage of dementia and forgetfulness. Moreover, the patient was delirious at the time of admission and majority of the time, this is sundowning. By the way, delirium is improving. PLAN: To current management, current medications. The patient is improving. Discussed with the patient's . The patient does not have any agitation or aggression. This property underwriter will sign off. Should you have any questions, give me a call back. In case of change in mental status, Dr. Garcia is covering for tomorrow. Thank you very much for letting me participate in the care of your patient. Arlin Alicea MD
--- NOTE | 2018-05-14 18:31 | CARD ---
APPROVED REPORT Date of service: 05/14/2018 EKG Measurement Heart [id number] [id number] <Conclusion> Electronic ventricular pacemake Underlying A flutter
--- NOTE | 2018-05-14 18:31 | RAD ---
HISTORY: Post Pacemaker, R/o pneumothorax COMPARISON: Chest x-ray performed 05/09/18 TECHNIQUE: Chest, one view. FINDINGS: LUNGS: Prominent interstitial markings may be chronic; mild superimposed infection or edema not excluded. Please note that chest x-ray has limited sensitivity for the detection of pulmonary masses. PLEURA: No significant pleural effusion identified. No definite pneumothorax . CARDIOVASCULAR: Cardiomegaly. Median sternotomy wires. Single lead left-sided pacemaker. OSSEOUS STRUCTURES: Osseous demineralization. Degenerative changes. VISUALIZED UPPER ABDOMEN: Unremarkable. OTHER FINDINGS: None. IMPRESSION: Cardiomegaly. Single lead left-sided pacemaker. No definite pneumothorax. Prominent interstitial markings may be chronic; mild superimposed infection or edema not excluded.
--- NOTE | 2018-05-15 03:00 | PN ---
DATE: 05/14/2018 SUBJECTIVE: The patient is 82 years old male. Patient was seen and examined at the bedside on 05/14/2018, looking comfortable, little bit anxious and hungry because the patient is n.p.o. and waiting for the pacemaker placement. No fever, no chills. No nausea, no vomiting, no diarrhea. No hematuria or hematochezia. No swelling of the legs. PHYSICAL EXAMINATION VITAL SIGNS: Temperature 98, heart rate 73, respiratory rate 20, blood pressure 130/90, pulse oximetry is 95% on room air. HEENT: Head is normocephalic and atraumatic. Eyes; PERRLA. Extraocular muscles are intact. Conjunctivae are clear. Nose is patent. Mucous membranes are moist. NECK: Supple. No carotid bruits, JVD, or thyromegaly. CHEST: Bilaterally symmetrical. HEART: S1 and S2 positive. LUNGS: Clear to auscultation. ABDOMEN: Soft. Bowel sounds present. No organomegaly. EXTREMITIES: No edema. No cyanosis. NEUROLOGICAL: The patient is awake and alert. Follows simple commands. MEDICATIONS: Eliquis, potassium, Lasix, Pepcid, Paxil, Requip, Seroquel, multivitamins, and Xanax. LABORATORY DATA: Hemoglobin 11.7, hematocrit 36.1, white blood cell 5.5, platelets 135. Sodium 139, potassium 4.2, BUN 28, creatinine 0.9. AST 22, ALT 21. ASSESSMENT AND PLAN: Mr. Blade Escalona is 82 years old male with severe restless leg syndrome, atrial fibrillation, hypertension, dementia, bradycardia. Restless legs syndrome, continue Requip 2 mg three times a day. The patient is on Seroquel and Xanax as per psychiatrist. The patient went for pacemaker placement due to severe bradycardia. Discussion done with patient's , Shari. Fall precautions. According to Dr. Black, after procedure, may discontinue Lasix and potassium if okay with Cardiology. The patient need good physical therapy. Gastrointestinal and deep venous thrombosis prophylaxes. Repeat labs. We will follow up. Susie Ward MD
--- NOTE | 2018-05-15 07:03 | CP.PCM.PN ---
Subjective - Date & Time of Evaluation Date of Evaluation: 05/15/18 Time of Evaluation: 06:25 - Subjective Subjective: Agitated,awake,on 1:1 sitter Reason for consultation and follow up: Cardiac evaluation of 2 seconds pause on telemetry.History of atrial fibrillation,admitted for leg swelling,History of atrial fibrillation, history of congestive heart failure,coronary artery disease ,post coronary artery bypass grafting in 1997 (RAMIREZ to LAD, SVG to OM1,SVG to OM2) coronary stents,([place] [facility] [place]um[place] OM2 [place]/14/2012).Status post PPM Seen and examined by me and Dr. Blair Objective - Vital Signs/Intake and Output Vital Signs (last 24 hours): Temp Pulse Resp BP Pulse Ox 97.7 F 79 20 144/61 96 05/15/18 06:00 05/15/18 06:00 05/15/18 06:00 05/15/18 06:00 05/15/18 06:00 Intake and Output: 05/15/18 05/15/18 06:59 18:59 Intake Total 60 Balance 60 - Medications Medications: Current Medications Acetaminophen (Tylenol 325mg Tab) 650 mg PO Q6H PRN PRN Reason: Fever >100.4 F Stop: 05/15/18 23:59 Alprazolam (Xanax) 0.5 mg PO TID PRN; Protocol PRN Reason: Anxiety/insomnia Last Admin: 05/14/18 19:05 Dose: 0.5 mg Apixaban (Eliquis) 5 mg PO BID [facility] PRN Reason: Protocol Cephalexin Monohydrate (Keflex) 250 mg PO TID [facility] PRN Reason: Protocol Stop: 05/18/18 23:59 Last Admin: 05/14/18 17:55 Dose: 250 mg Famotidine (Pepcid) 40 mg PO HS [facility] Last Admin: 05/14/18 21:26 Dose: Not Given Furosemide (Lasix) 20 mg PO DAILY [facility] Last Admin: 05/14/18 09:18 Dose: Not Given Metoprolol Tartrate (Lopressor) 25 mg PO BID [facility] Last Admin: 05/14/18 17:55 Dose: 25 mg Multivitamins/Minerals (Therapeutic-M Tab) 1 tab PO DAILY [facility] Last Admin: 05/14/18 09:18 Dose: Not Given Potassium Chloride (K-Dur 20 Meq Er Tab) 20 meq PO DAILY [facility] Last Admin: 05/14/18 09:18 Dose: Not Given Quetiapine Fumarate (Seroquel) 12.5 mg PO HS PRN; Protocol PRN Reason: agitation/psychosis Last Admin: 05/14/18 20:30 Dose: 12.5 mg Ropinirole HCl (Requip) 2 mg PO TID [facility] Last Admin: 05/14/18 17:55 Dose: 2 mg - Labs Labs: 05/14/18 08:00 05/14/18 06:30 PT 20.8 SECONDS (9.4-12.5) H 05/14/18 06:30 INR 1.79 05/14/18 06:30 APTT 34.2 Seconds (25.1-36.5) 05/09/18 11:28 - Constitutional Appears: No Acute Distress - Eye Exam Eye Exam: Normal appearance - ENT Exam ENT Exam: Mucous Membranes Moist - Respiratory Exam Respiratory Exam: Decreased Breath Sounds, Clear to Ausculation Bilateral, NORMAL BREATHING PATTERN - Cardiovascular Exam Cardiovascular Exam: +S1, +S2 Additional comments: left chest PPM site with dermabond, no hematoma,no bleeding Ventricular Pacing at 60's - GI/Abdominal Exam GI & Abdominal Exam: Soft, Normal Bowel Sounds - Extremities Exam Extremities Exam: Normal Capillary Refill - Neurological Exam Neurological Exam: Alert, Awake, Oriented x3 - Psychiatric Exam Psychiatric exam: Agitated - Skin Skin Exam: Intact, Warm Assessment and Plan - Assessment and Plan (Free Text) Assessment: An 82 year old male who came in to the ER due to left leg swelling.History of atrial fibrillation, history of congestive heart failure,coronary artery disease ,post coronary artery bypass grafting in 1997 (RAMIREZ to LAD, SVG to OM1, SVG to OM2) coronary stents,([place] [facility] [place] Circumflex and OM2 05/14/2012), he follows up at [facility] [place], peripheral vascular disease, UTI, restless leg syndrome, CVA /TIA,hypertension, hypercholesterolemia, BPH,deafness,hypothyroidism,anemia, shingles,chronic kidney disease. Cardiac consult was called to evaluate of 2 seconds pause on telemetry, lowest heart rate 33/min. Asymptomatic. Patient confuse and disoriented. refused Holter monitor, episodes of 2-3 seconds pauses for the past 2 days.Today 5 seconds pause Sleeping). Had PPM yesterday.Medtronic VVI single chamber. Plan: Status post Permanent pacemaker insertion yesterday- Medtronic VVI single chamber V-pacing at 60's PPM site no hematoma,no bleeding Agitated and restless No distress Leg swelling improved Will restart Eliquis Blood pressure controlled Continue current treatment Continue current medications Discharge planning Will follow up Plan and treatment discussed with Dr. Blair
[2018-05-15 07:17] LABS: BASO # 0.06 K/mm3 (0.0-2.0); BASO % 0.9 % (0.0-3.0); EOS # 0.8 (0.0-0.7); EOS % 10.7 % (1.5-5.0); GRAN # 3.6 (1.4-6.5); GRAN % 51.3 % (50.0-68.0); HEMOGLOBIN 12.9 g/dL (14.0-18.0); LYMPH % 28.5 % (22.0-35.0); MEAN CORPUSCULAR HEMOGLOBIN 30.4 pg (25.0-35.0); MEAN CORPUSCULAR HGB CONC 33.4 g/dl (31.0-37.0); MEAN PLATELET VOLUME 10.2 fl (7.0-11.0); MONO # 0.6 (0.1-0.6); MONO % 8.6 % (1.0-6.0); RBC 4.24 10^6/uL (3.5-6.1); RED CELL DISTRIBUTION WIDTH 16.3 % (11.5-14.5)
[2018-05-15 07:29] LABS: ALB/GLOB RATIO 1.1 (1.1-1.8); ALBUMIN 3.9 g/dL (3.0-4.8); ALT/SGPT 19 U/L (7-56); AST/SGOT 31 U/L (17-59); BLOOD UREA NITROGEN 23 mg/dL (7-21); CALCIUM 9.4 mg/dL (8.4-10.5); GFR NON-AFRICAN AMERICAN > 60
--- NOTE | 2018-05-15 09:43 | CARD ---
APPROVED REPORT Date of service: 05/15/2018 EKG Measurement Heart [id number] [id number] <Conclusion> Atrial flutter with 4:1 AV conduction Left ventricular hypertrophy with repolarization abnormality Abnormal ECG
--- NOTE | 2018-05-15 09:48 | CARD ---
APPROVED REPORT Date of service: 05/14/2018 EKG Measurement Heart [id number] <Conclusion> Demand pacemaker, interpretation is based on intrinsic rhythm Atrial flutter with variable AV block with premature ventricular or aberrantly conducted complexes Right bundle branch block Left posterior fascicular block Bifascicular block T wave abnormality, consider inferior ischemia Abnormal ECG
--- NOTE | 2018-05-15 10:47 | RAD ---
Date of service: 05/15/2018 PROCEDURE: CHEST RADIOGRAPH, 1 VIEW HISTORY: s/p PPm R/o pneumothorax COMPARISON: 05/14/2018 FINDINGS: LUNGS: There is no evidence of pneumothorax. PLEURA: No pneumothorax or pleural fluid seen. CARDIOVASCULAR: Moderate vascular congestion and interstitial congestion right greater than left. Mild cardiomegaly pacemaker OSSEOUS STRUCTURES: No significant abnormalities. VISUALIZED UPPER ABDOMEN: Normal. OTHER FINDINGS: None. IMPRESSION: No evidence of pneumothorax
[2018-05-15] MEDS: Multivitamin With Minerals Tab PO SCH (12:31)
[2018-05-15] MEDS: Potassium Chloride 20 mEq ER Tab PO SCH (12:31)
[2018-05-15 18:03] VITALS: RESP 16
--- NOTE | 2018-05-16 00:33 | PN ---
DATE: 05/15/2018 PULMONARY PROGRESS NOTE REFERRING PHYSICIAN: Dr. aWrd. SUBJECTIVE: He is lying in the bed, sleepy, arousable. Still under one-to-one supervision, unsteady on the feet. Leg pain is much better. No chest pain. No nausea, no vomiting, no diarrhea. Status post left chest pacemaker, has some ecchymotic area. OBJECTIVE: GENERAL: In no acute distress. VITAL SIGNS: Temperature is 98, heart rate is 59, respiratory rate is 18, blood pressure 130/58, pulse ox 96% on room air. HEENT: Moist mucous membranes. No ulcer or thrush. NECK: Supple. No JVD. LUNGS: Have fair airflow with rhonchi. HEART: S1 and S2. ABDOMEN: Soft, nontender. No organomegaly. EXTREMITIES: No edema. NEUROLOGICAL: Sleepy, arousable. MEDICATIONS: Eliquis 5 mg twice a day, potassium 20 mEq daily, Keflex 250 mg three times a day, Lasix 20 mg daily, metoprolol tartrate 50 mg twice a day, Pepcid 40 mg daily, Requip 2 mg three times a day, Seroquel 12.5 mg at bedtime, multivitamins daily, Xanax 0.5 mg three times a day p.r.n. LABORATORY DATA: Shows hemoglobin 12.9, hematocrit 38.6, WBC 7, platelet count is 124. Sodium 138, potassium 4.2, chloride 105, bicarbonate is 26. BUN 23, creatinine 0.8, glucose 88, calcium is 9.4, phosphorus 3, magnesium 2.3, AST 31, ALT 19, alk phos is 94. Albumin is 3.9. Chest x-ray done today shows no evidence of pneumothorax, left chest has a pacemaker. IMPRESSION AND PLAN: Severe restless leg syndrome requiring high dose of Requip, did not tolerate pain meds as well as Lyrica; history of atrial fibrillation; hypertension; dementia; end up with bradycardia, requiring pacemaker. Also seen by Psychiatry, high dose of Xanax. Family is recommended the patient should go to TRCU-type services because of the instability on the feet and on high dose of benzodiazepine. Also spoke to Dr. Ward. We will speak to Psychiatry, may need to decrease Xanax does. Fall precaution. Continue one-to-one supervision. May need to discontinue Lasix as well as potassium. Thank you and we will follow with you. Nabeel Black MD
--- NOTE | 2018-05-16 03:34 | PN ---
DATE: 05/15/2018 SUBJECTIVE: Patient is 82 years old male. Patient was seen and examined on the bedside on 05/15/18, looking comfortable, deeply sleepy, but arousable, still on one to one while resting on the bedside also. Plan was to send patient to TCU but the patient's refused. Then I urged her to, "do not take him home, send him to rehab", she understands because patient is not strong in his legs, he has ataxia, very weak and he is at big risk for falling and he is on blood thinners. PHYSICAL EXAMINATION: VITAL SIGNS: Temperature 97.7, pulse 79, respiration is 20, blood pressure 140/60, pulse oximetry 96. HEENT: Head: Normocephalic, atraumatic. Eyes: PERRLA. Extraocular muscles intact. Conjunctivae clear. Nose patent. Mucous membrane moist. NECK: Supple. No carotid bruit. No JVD or thyromegaly. CHEST: Bilaterally symmetrical. HEART: S1 and S2 positive. LUNGS: Clear to auscultation. ABDOMEN: Soft. Bowel sounds present. No organomegaly. EXTREMITIES: No edema. No cyanosis. NEUROLOGIC: The patient is sleepy, arousable but cannot do complete neurological examination. MEDICATIONS: Tylenol, Xanax, Eliquis, Keflex, Pepcid, Lasix, Lopressor, potassium, Seroquel, Requip. LABORATORY DATA: White blood cells 5.5, hemoglobin 11.7, hematocrit 36.1, platelets 135. Sodium 139, potassium 4.2, BUN 28, creatinine 0.8, glucose 94. ASSESSMENT: Mr. Blade Escalona is 82 years old male with anemia, came with swelling of the legs, atrial fibrillation, congestive heart failure, coronary artery disease, post coronary artery bypass graft in 1997, coronary stenting [facility], peripheral vascular disease, urinary tract infection, restless legs syndrome, history of cerebrovascular accident/transient ischemic attack, hypertension, hypercholesterolemia, benign prostatic hypertrophy, deafness, hypothyroidism, history of shingles, chronic kidney disease, seen by solar fabrication technician, has pauses on telemetry, low heart rate about 33. Patient confused and disoriented. Patient refused Holter monitor. Episode of 2 to 3 second pauses for the past 2 days, 2 to 5 second pause while sleeping. Got implantation of pacemaker. Patient has history of anxiety, getting Xanax and most of the times he is sleepy now. PLAN: Was to sent patient to TCU. I educated the , agreed to decrease Xanax and give patient physical therapy. Because patient has ataxia, he is at big risk of falling and on the top of that he is getting blood thinners. Leg swelling improved. Patient was started on Eliquis, controlling blood pressure. Gastrointestinal and deep venous thrombosis prophylaxes. Repeat labs. We will get physical therapy. Discussion done with and Dr. Black and nurse practitioner. We will follow. Susie Ward MD MTDD
--- NOTE | 2018-05-16 07:22 | CP.PCM.PN ---
Subjective - Date & Time of Evaluation Date of Evaluation: 05/16/18 Time of Evaluation: 06:25 - Subjective Subjective: Sleeping, calm,no distress, off telemetry Reason for consultation and follow up: Cardiac evaluation of 2 seconds pause on telemetry.History of atrial fibrillation,admitted for leg swelling,History of atrial fibrillation, history of congestive heart failure,coronary artery disease ,post coronary artery bypass grafting in 1997 (RAMIREZ to LAD, SVG to OM1,SVG to OM2) coronary stents,([place] [facility] [place] Circumflex and OM2 [place]/14[place]).Status post PPM Seen and examined by me and Dr. Blair Objective - Vital Signs/Intake and Output Vital Signs (last 24 hours): Temp Pulse Resp BP Pulse Ox 98 F 59 L 16 130/58 L 96 05/15/18 18:03 05/15/18 18:03 05/15/18 18:03 05/15/18 18:03 05/15/18 06:00 - Medications Medications: Current Medications Alprazolam (Xanax) 0.25 mg PO TID PRN; Protocol PRN Reason: Anxiety/insomnia Apixaban (Eliquis) 5 mg PO BID PENDING SALE TO [facility] PRN Reason: Protocol Last Admin: 05/16/18 05:45 Dose: 5 mg Cephalexin Monohydrate (Keflex) 250 mg PO TID PENDING SALE TO [facility] PRN Reason: Protocol Stop: 05/18/18 23:59 Last Admin: 05/15/18 17:54 Dose: 250 mg Famotidine (Pepcid) 40 mg PO HS PENDING SALE TO [facility] Last Admin: 05/15/18 22:52 Dose: Not Given Metoprolol Tartrate (Lopressor) 50 mg PO BID PENDING SALE TO [facility] Last Admin: 05/15/18 17:54 Dose: 50 mg Multivitamins/Minerals (Therapeutic-M Tab) 1 tab PO DAILY PENDING SALE TO [facility] Last Admin: 05/15/18 12:31 Dose: 1 tab Quetiapine Fumarate (Seroquel) 12.5 mg PO HS PRN; Protocol PRN Reason: agitation/psychosis Last Admin: 05/15/18 22:58 Dose: 12.5 mg Ropinirole HCl (Requip) 2 mg PO TID PENDING SALE TO [facility] Last Admin: 05/15/18 17:54 Dose: 2 mg - Labs Labs: 05/15/18 06:30 05/15/18 06:30 PT 20.8 SECONDS (9.4-12.5) H 05/14/18 06:30 INR 1.79 05/14/18 06:30 APTT 34.2 Seconds (25.1-36.5) 05/09/18 11:28 - Constitutional Appears: No Acute Distress - Eye Exam Eye Exam: Normal appearance - ENT Exam ENT Exam: Mucous Membranes Moist - Cardiovascular Exam Cardiovascular Exam: +S1, +S2 Additional comments: PPM - GI/Abdominal Exam GI & Abdominal Exam: Soft, Normal Bowel Sounds - Extremities Exam Extremities Exam: Normal Capillary Refill - Neurological Exam Neurological Exam: Alert, Awake - Psychiatric Exam Psychiatric exam: Normal Affect - Skin Skin Exam: Dry, Warm Assessment and Plan - Assessment and Plan (Free Text) Assessment: An 82 year old male who came in to the ER due to left leg swelling.History of atrial fibrillation, history of congestive heart failure,coronary artery disease ,post coronary artery bypass grafting in 1997 (RAMIREZ to LAD, SVG to OM1, SVG to OM2) coronary stents,(At [facility] [place] Circumflex [place] OM2 [place]/14[place]), he follows up at [facility] [place], peripheral vascular disease, UTI, restless leg syndrome, CVA /TIA,hypertension, hypercholesterolemia, BPH,deafness,hypothyroidism,anemia, shingles,chronic kidney disease. Cardiac consult was called to evaluate of 2 seconds pause on telemetry, lowest heart rate 33/min. Asymptomatic. Patient confuse and disoriented. refused Holter monitor, episodes of 2-3 seconds pauses for the past 2 days.Today 5 seconds pause Sleeping). Had PPM yesterday.Medtronic VVI single chamber.Stable,off telemetry, Plan: No distress, calm Status post Permanent pacemaker insertion ( Medtronic VVI single chamber) PPM site no hematoma,no bleeding Leg swelling improved Blood pressure controlled Cardiac status stable Continue current treatment Continue current medications Discharge planning Will follow up Plan and treatment discussed with Dr. Blair
[2018-05-16 07:33] LABS: BASO # 0.04 K/mm3 (0.0-2.0); BASO % 0.6 % (0.0-3.0); EOS # 0.8 (0.0-0.7); GRAN # 3.26 (1.4-6.5); GRAN % 50.9 % (50.0-68.0); HEMOGLOBIN 12.3 g/dL (14.0-18.0); LYMPH # 1.6 (1.2-3.4); LYMPH % 25.6 % (22.0-35.0); MEAN CELL VOLUME 90.2 fl (80.0-105.0); MEAN CORPUSCULAR HEMOGLOBIN 30.1 pg (25.0-35.0); MEAN CORPUSCULAR HGB CONC 33.3 g/dl (31.0-37.0); MEAN PLATELET VOLUME 9.9 fl (7.0-11.0); MONO # 0.7 (0.1-0.6); MONO % 10.9 % (1.0-6.0); RBC 4.09 10^6/uL (3.5-6.1); RED CELL DISTRIBUTION WIDTH 16.2 % (11.5-14.5); WHITE BLOOD COUNT 6.4 10^3/ul (4.5-11.0)
[2018-05-16 07:46] LABS: BLOOD UREA NITROGEN 20 mg/dL (7-21); CALCIUM 9.1 mg/dL (8.4-10.5); GFR NON-AFRICAN AMERICAN > 60
[2018-05-16] MEDS: Multivitamin With Minerals Tab PO SCH (09:25)
[2018-05-16 15:16] VITALS: BP 121/57; PULSE 60; TEMP 98.4; O2SAT 97
--- NOTE | 2018-05-16 22:11 | PN ---
DATE: 05/16/2018 PULMONARY PROGRESS NOTE REFERRING PHYSICIAN: Susie Ward MD SUBJECTIVE: He is out of bed to chair. is at bedside. Night was unremarkable. Slept well. Still unsteady on his feet. No cough, no sputum production. No nausea, no vomiting, no diarrhea. Leg pain is much better. OBJECTIVE: GENERAL: In no acute distress. VITAL SIGNS: Temperature is 98, heart rate is 60, respiratory rate is 16, blood pressure 121/57, pulse ox 97% on room air. HEENT: Moist mucous membrane. No ulcer or thrush noted. NECK: Supple. No JVD. LUNGS: Have a fair airflow with rhonchi. Left chest area has some ecchymotic area and is pacemaker site. HEART: S1 and S2. ABDOMEN: Soft, nontender, no organomegaly. EXTREMITIES: No edema. NEUROLOGIC: Awake, alert. Follows simple command. MEDICATIONS: He is on Eliquis 5 mg twice a day, Keflex 250 mg three times a day, metoprolol tartrate 50 mg twice a day, Pepcid 40 mg at bedtime, ropinirole 2 mg three times a day, Seroquel 12.5 mg at bedtime, multivitamins daily, Xanax 0.25 three times a day p.r.n. basis. LABORATORY DATA: Shows hemoglobin 12.3, hematocrit 36.9, WBC 6.4, platelet count is 130. Sodium 138, potassium 4.2, chloride 104, bicarbonate 26, BUN 20, creatinine 0.8, glucose 92, calcium is 9.1, phosphorus 3.5, magnesium 2.3. IMPRESSION AND PLAN: Severe restless legs syndrome, requiring high dose of Requip, atrial fibrillation, hypertension, dementia, and bradycardia requiring pacemaker. May need to consider sleep study upon discharge as outpatient. Getting physical therapy. I spoke to the patient's in detail. All the questions answered. Continue rehab and therapy. Will benefit from TRCU-type services. Thank you and we will follow with you. Nabeel Black MD
== END 2018-05-16 16:48 | disposition home health service (06) | DRG 243 ==
LOC: ED 10:34 → ERH 14:13 → 2RSO 15:18 → OBSVTOIN 05-10 18:07 → 5RSO 05-15 20:51
PROVIDERS: ADMIT Internal Medicine; ATTEND Internal Medicine
PROC: 0JH604Z Insertion of Pacemaker, Single Chamber into Chest Subcutaneous Tissue and Fascia, Open Approach (ICD-10-PCS; principal; 2018-05-14)
PROC: 02HK3JZ Insertion of Pacemaker Lead into Right Ventricle, Percutaneous Approach (ICD-10-PCS; 2018-05-14)
DX: I49.5 Sick sinus syndrome (principal); I48.92 Unspecified atrial flutter; I47.2 Ventricular tachycardia; F05 Delirium due to known physiological condition; I13.0 Hypertensive heart and chronic kidney disease with heart failure and stage 1 through stage 4 chronic kidney disease, or unspecified chronic kidney disease; I50.9 Heart failure, unspecified; N18.9 Chronic kidney disease, unspecified; I73.9 Peripheral vascular disease, unspecified; G25.81 Restless legs syndrome; I48.91 Unspecified atrial fibrillation; I25.10 Atherosclerotic heart disease of native coronary artery without angina pectoris; D64.9 Anemia, unspecified; E03.9 Hypothyroidism, unspecified; G62.9 Polyneuropathy, unspecified; F03.90 Unspecified dementia, unspecified severity, without behavioral disturbance, psychotic disturbance, mood disturbance, and anxiety; I27.20 Pulmonary hypertension, unspecified; I08.2 Rheumatic disorders of both aortic and tricuspid valves; H91.91 Unspecified hearing loss, right ear; I37.1 Nonrheumatic pulmonary valve insufficiency; E78.00 Pure hypercholesterolemia, unspecified; G89.29 Other chronic pain; F32.9 Major depressive disorder, single episode, unspecified; F41.9 Anxiety disorder, unspecified; G47.00 Insomnia, unspecified; J44.9 Chronic obstructive pulmonary disease, unspecified; M19.90 Unspecified osteoarthritis, unspecified site; N40.0 Benign prostatic hyperplasia without lower urinary tract symptoms; Z79.02 Long term (current) use of antithrombotics/antiplatelets; Z95.1 Presence of aortocoronary bypass graft; Z95.5 Presence of coronary angioplasty implant and graft; Z86.73 Personal history of transient ischemic attack (TIA), and cerebral infarction without residual deficits

== ENCOUNTER 2018-10-22 12:18 | Inpatient (IN) | payer MEDICARE, MEDICAID ==
[2018-10-22 12:18] VITALS: BMI 22.9
--- NOTE | 2018-10-22 12:59 | ED PDOC ---
Arrival/HPI - General Chief Complaint: Trauma Time Seen by Provider: 10/22/18 12:24 Historian: Family - History of Present Illness Narrative History of Present Illness (Text): 10/22/18 12:55 83 year old male, with past medical history of TIA, Alzheimer's, CHF, CABG, and pacemaker on Eliquis, presents to the ED accompanied by family for medical evaluation s/p fall 2 days ago. As per family, patient became unsteady 2 days ago when he fell on his left side sustaining hematoma to the area. Family denies any head injury or any loss of consciousness. Family states patient has been able to ambulate since then but slowly. Family denies any other associated somatic complaints. Family denies any fever, chills, vomiting, diarrhea, abdominal pain, chest pain, shortness of breath, headache, dizziness or any other complaints. Time/Duration: < week Symptom Onset: Gradual Symptom Course: Unchanged Activities at Onset: Light Context: Home Past Medical History - Provider Review Nursing Documentation Reviewed: Yes - Infectious Disease Hx of Infectious Diseases: None - Tetanus Immunization Tetanus Immunization: Unknown - Cardiac Hx Cardiac Disorders: Yes (CAD, CABGx 4, cardiac stents) Hx Congestive Heart Failure: Yes Hx Pacemaker: Yes (05/2018) - Pulmonary Hx Chronic Obstructive Pulmonary Disease (COPD): Yes - Neurological Hx Neurological Disorder: Yes HX Cerebrovascular Accident: Yes Hx Transient Ischemic Attacks (TIA): Yes - HEENT Hx HEENT Disorder: Yes (DECREASED PHERIPHERAL VISION) Hx Deafness: Yes (DEAF ON RIGHT EGEGIK LEFT) Other/Comment: wears eyeglasses - Renal Hx Renal Disorder: Yes Hx Kidney Stones: Yes Hx Renal Failure: Yes - Endocrine/Metabolic Hx Endocrine Disorders: Yes Hx Hypothyroidism: Yes - Hematological/Oncological Hx Blood Disorders: Yes Hx Anemia: Yes Hx Shingles: Yes - Integumentary Hx Dermatological Disorder: Yes Other/Comment: ecchymosis and hematoma L buttock/hip area - Musculoskeletal/Rheumatological Hx Falls: No - Gastrointestinal Hx Gastrointestinal Disorders: Yes (gi bleed) Other/Comment: weight fluctuates from 170 lbs to 150 lbs as per - Genitourinary/Gynecological Hx Genitourinary Disorders: Yes Hx Prostate Problems: Yes (BPH PHIMOSIS) Hx Urinary Tract Infection: Yes - Psychiatric Hx Psychophysiologic Disorder: Yes (INSOMNIA) Hx Substance Use: No Other/Comment: salicylate poisoning about 3 yrs ago - Surgical History Hx Cardiac Catheterization: Yes Hx Coronary Stent: Yes (x 7 stents) Hx Open Heart Surgery: Yes Hx Orthopedic Surgery: Yes - Anesthesia Hx Anesthesia Reactions: No Hx Malignant Hyperthermia: No - Suicidal Assessment Feels Threatened In Home Enviroment: No Family/Social History - Physician Review Nursing Documentation Reviewed: Yes Family/Social History: Unknown Family HX Smoking Status: Never Smoked Hx Alcohol Use: Yes (social) Hx Substance Use: No Allergies/Home Meds Allergies/Adverse Reactions: Allergies pregabalin [From Lyrica] Adverse Reaction (Verified 05/13/18 07:38) aggitated zolpidem [From Ambien] Adverse Reaction (Verified 05/12/18 07:39) Sensitivity Sensitivity - has opposite effect than intended. Home Medications: Home Meds Medication Instructions Recorded Confirmed Furosemide [Lasix] 40 mg PO DAILY 03/29/14 05/09/18 Potassium Chloride 20 meq PO DAILY 12/21/15 05/09/18 Vit With Iron 1 tab PO DAILY 12/21/15 05/09/18 Review of Systems - Physician Review All systems were reviewed & negative as marked: Yes - Review of Systems Constitutional: absent: Weight Change, Fevers Eyes: absent: Vision Changes, Photophobia ENT: absent: Hearing Changes, Tinnitus, TMJ Pain Respiratory: absent: SOB, Cough, Sputum, Wheezing Cardiovascular: absent: Chest Pain, Palpitations, Edema, Calf Pain Gastrointestinal: absent: Abdominal Pain, Stool Changes, Constipation, Diarrhea, Nausea, Vomiting Genitourinary Male: absent: Dysuria, Urinary Output Changes Musculoskeletal: Other (Left hip pain). absent: Arthralgias, Neck Pain Skin: absent: Rash, Pruritis, Skin Lesions, Laceration Neurological: absent: Headache, Dizziness Psychiatric: absent: Anxiety Physical Exam Vital Signs Reviewed: Yes Vital Signs Temp Pulse Resp BP Pulse Ox 10/22/18 12:18 97.8 F 79 16 121/58 L 97 Temperature: Afebrile Blood Pressure: Normal Pulse: Regular Respiratory Rate: Normal Appearance: Positive for: Well-Appearing, Non-Toxic, Comfortable Pain Distress: None Mental Status: Positive for: other (Alert) - Systems Exam Head: Present: Atraumatic, Normocephalic Pupils: Present: PERRL Extroacular Muscles: Present: EOMI Conjunctiva: Present: Normal Ears: Present: Normal, NORMAL TM Mouth: Present: Moist Mucous Membranes Pharnyx: Present: Normal. No: ERYTHEMA Nose (External): Present: Atraumatic. No: Abrasion, Contusion Nose (Internal): Present: Normal Inspection. No: Septal Hematoma Neck: Present: Normal Range of Motion. No: Meningeal Signs, MIDLINE TENDERNESS Respiratory/Chest: Present: Clear to Auscultation, Good Air Exchange. No: Respiratory Distress, Accessory Muscle Use Cardiovascular: Present: Regular Rate and Rhythm, Normal S1, S2. No: Murmurs Abdomen: No: Tenderness, Distention, Peritoneal Signs Back: Present: Normal Inspection, Other (soft tissue swelling noted to left buttocks ). No: CVA Tenderness, Midline Tenderness Upper Extremity: Present: Normal Inspection, Normal ROM, NORMAL PULSES, Neurovascularly Intact. No: Cyanosis, Edema, Tenderness, Swelling, Erythema, Temperature Abnormalties Lower Extremity: Present: Edema (L foot 1+), NORMAL PULSES, Normal ROM, Tenderness (L buttocks), Swelling (Left soft tissue swelling to L buttocks), Neurovascularly Intact. No: CALF TENDERNESS, Rafaela's Sign, Erythema Neurological: Present: GCS=15, Speech Normal Skin: Present: Warm, Dry, Normal Color. No: Rashes Psychiatric: Present: Alert Medical Decision Making ED Course and Treatment: 10/22/18 12:58 Impression: 83 year old male presents to the ED for evaluation of hematoma to left buttocks s/p fall. No appreciable hematoma noted. No tight compartment noted. good n/v status distal. no crepitus or erythema. Full ROM to R hip. No snuffbox tenderness of pain in any other area. Per family bedside: pt has been weaker recently. There was no LOC with fall per family. Pt has no other complaints other than L sided hip pain. Plan: -- Labs -- CT of Abdomen/Pelvis -- CT of Cervical Spine -- CT of Head -- EKG -- Chest X-ray -- X-ray of Left Foot -- X-ray of Left Pelvis -- Urinalysis -- Reassess and disposition Prior Visits: Notes and results from previous visits were reviewed. Progress Notes: 10/22/18 15:35 CT of head reviewed by radiologist, shows: IMPRESSION: No acute intracranial abnormalities. No significant findings to account for the clinical presentation. No significant interval change compared to the prior examination(s). Progressive pansinusitis. CT of Cervical Spine reviewed by radiologist, shows: IMPRESSION: No acute findings related to/ accounting for the clinical presentation. Severe multilevel degenerative change. 10/22/18 16:09 CT of Abdomen/Pelvis reviewed by radiologist, shows: There is edema and swelling of the left gluteal muscles measuring 3.6 cm in thickness compared to the right side which measures 2 cm. There is no discrete hematoma 10/22/18 16:31 +UTI: WBC TNTC: Rx w/ pyelo. will require inpatient admission for f/u of weakness and UTI. Appreciate consult w/ Dr. zazueta: to admit to her service. Pt in NAd. Agreeable to plan. - Scribe Statement The provider has reviewed the documentation as recorded by the Scribe Hema Gant. All medical record entries made by the Scribe were at my direction and personally dictated by me. I have reviewed the chart and agree that the record accurately reflects my personal performance of the history, physical exam, medical decision making, and the department course for this patient. I have also personally directed, reviewed, and agree with the discharge instructions and disposition. Disposition/Present on Arrival - Present on Arrival Any Indicators Present on Arrival: No History of DVT/PE: No History of Uncontrolled Diabetes: No Urinary Catheter: No History of Decub. Ulcer: No History Surgical Site Infection Following: None - Disposition Have Diagnosis and Disposition been Completed?: Yes Diagnosis: UTI (urinary tract infection) Disposition: HOSPITALIZED Disposition Time: 14:30 Patient Problems: Current Active Problems Problem Status Onset Urinary tract infection Acute Condition: STABLE Discharge Instructions (ExitCare): Urinary Tract Infection, Adult (DC) Forms: [employer] (Hungarian)
[2018-10-22 13:14] LABS: PH,URINE 6.5 (4.7-8.0); URINE BILIRUBIN NEGATIVE (NEGATIVE); URINE BLOOD MODERATE (NEGATIVE); URINE GLUCOSE (UA) NEGATIVE (NEGATIVE); URINE LEUKOCYTE ESTERASE LARGE Leu/uL (NEGATIVE); URINE PROTEIN NEGATIVE mg/dL (<30 mg/dL); URINE UROBILINOGEN 0.2 E.U./dL (<1 E.U./dL)
[2018-10-22 13:16] LABS: URINE APPEARANCE TURBID (CLEAR); URINE COLOR YELLOW (YELLOW)
[2018-10-22 13:26] LABS: URINE BACTERIA TRACE /hpf; URINE WBC TNTC /hpf (0-6)
[2018-10-22 13:32] LABS: BASO # 0.05 K/mm3 (0.0-2.0); BASO % 0.9 % (0.0-3.0); EOS # 0.5 (0.0-0.7); EOS % 9.2 % (1.5-5.0); HEMOGLOBIN 11.3 g/dL (14.0-18.0); LYMPH # 1.4 (1.2-3.4); LYMPH % 26.2 % (22.0-35.0); MEAN CELL VOLUME 93.7 fl (80.0-105.0); MEAN CORPUSCULAR HEMOGLOBIN 30.9 pg (25.0-35.0); MEAN CORPUSCULAR HGB CONC 32.9 g/dl (31.0-37.0); MEAN PLATELET VOLUME 9.5 fl (7.0-11.0); MONO # 0.5 (0.1-0.6); MONO % 8.7 % (1.0-6.0); RBC 3.66 10^6/uL (3.5-6.1); RED CELL DISTRIBUTION WIDTH 14.3 % (11.5-14.5); WHITE BLOOD COUNT 5.3 10^3/uL (4.5-11.0)
[2018-10-22 13:39] LABS: ALB/GLOB RATIO 1.2 (1.1-1.8); ALBUMIN 3.7 g/dL (3.0-4.8); ALT/SGPT 13 U/L (7-56); AST/SGOT 28 U/L (17-59); BLOOD UREA NITROGEN 13 mg/dL (7-21); CALCIUM 9.4 mg/dL (8.4-10.5); GFR NON-AFRICAN AMERICAN > 60
[2018-10-22 13:41] LABS: INR 2.08; PARTIAL THROMBOPLASTIN TIME 38.9 Seconds (26.9-38.3); PROTHROMBIN TIME 23.5 SECONDS (9.4-12.5)
[2018-10-22 13:50] LABS: TROPONIN I < 0.01 ng/mL
[2018-10-22] MEDS ORDERED: cefTRIAXone 1 gm 1 GM/100 ML BAG IVPB STA (14:15)
[2018-10-22] MEDS ORDERED: Iohexol 350 MG/100 ML VIAL ONE (14:39)
--- NOTE | 2018-10-22 15:21 | CT ---
Date of service: 10/22/2018 PROCEDURE: CT HEAD WITHOUT CONTRAST. HISTORY: fall on eliquis COMPARISON: 06/10/2016. TECHNIQUE: Axial computed tomography images were obtained through the head/brain without intravenous contrast. Supplemental Coronal and Sagittal projections created and reviewed. Radiation dose: Total exam DLP = 973.03 mGy-cm. This CT exam was performed using one or more of the following dose reduction techniques: Automated exposure control, adjustment of the mA and/or kV according to patient size, and/or use of iterative reconstruction technique. FINDINGS: HEMORRHAGE: No intracranial hemorrhage. BRAIN: No mass effect or edema. Stable area of encephalomalacia change corresponding to distribution right posterior cerebral artery identified. This affects the right temporal occipital regions. Lying atrophy/encephalomalacia change, small vessel disease stable. VENTRICLES: Unremarkable. No hydrocephalus. CALVARIUM: Unremarkable. PARANASAL SINUSES: High density material completely fills the right maxillary sinus. Air-fluid level with high density material noted in the left maxillary sinus. Similar findings identified in the hypoplastic frontal air cells. Ethmoid and sphenoid sinus disease also noted. MASTOID AIR CELLS: Unremarkable as visualized. No inflammatory changes. OTHER FINDINGS: None. IMPRESSION: No acute intracranial abnormalities. No significant findings to account for the clinical presentation. No significant interval change compared to the prior examination(s). Progressive pansinusitis.
--- NOTE | 2018-10-22 15:24 | CT ---
Date of service: 10/22/2018 PROCEDURE: CT Cervical Spine without contrast HISTORY: fall on eliquis COMPARISON: None available. TECHNIQUE: Axial computed tomography images were obtained of the cervical spine without the use of intravenous contrast. Coronal and sagittal reformatted images were created and reviewed. Radiation dose: Total exam DLP = 458.48 mGy-cm. This CT exam was performed using one or more of the following dose reduction techniques: Automated exposure control, adjustment of the mA and/or kV according to patient size, and/or use of iterative reconstruction technique. FINDINGS: VERTEBRAE: No fracture. Normal alignment. No destructive bony lesion. DISCS/SPINAL CANAL/NEURAL FORAMINA: Multilevel degenerative changes. 3 mm anterolisthesis C3-3 4. Partial likely congenital fusion C5-6. Reversal of the anatomic lordosis with kyphosis. Degree: Mild. PARASPINAL SOFT TISSUES: Unremarkable. OTHER FINDINGS: None. IMPRESSION: No acute findings related to/ accounting for the clinical presentation. Severe multilevel degenerative change.
--- NOTE | 2018-10-22 15:37 | CT ---
Date of service: 10/22/2018 PROCEDURE: CT Abdomen and Pelvis with contrast HISTORY: fall on eliquis, L buttocks hematoma COMPARISON: None. TECHNIQUE: Contrast dose: 100 cc of Omni 350 Radiation dose: Total exam DLP = 371.56 mGy-cm. This CT exam was performed using one or more of the following dose reduction techniques: Automated exposure control, adjustment of the mA and/or kV according to patient size, and/or use of iterative reconstruction technique. FINDINGS: LOWER THORAX: Unremarkable. LIVER: Unremarkable. No gross lesion or ductal dilatation. GALLBLADDER AND BILE DUCTS: Unremarkable. PANCREAS: Unremarkable. No gross lesion or ductal dilatation. SPLEEN: Unremarkable. ADRENALS: Unremarkable. No mass. KIDNEYS AND URETERS: Unremarkable. No hydronephrosis. No solid mass. 12 mm nonobstructing stone in the lower pole of the left kidney VASCULATURE: Unremarkable. No aortic aneurysm. Extensive aortic calcification BOWEL: Unremarkable. No obstruction. No gross mural thickening. APPENDIX: Normal appendix. PERITONEUM: There is a fat containing left inguinal hernia measuring 3 x 5 cm. LYMPH NODES: Unremarkable. No enlarged lymph nodes. BLADDER: Unremarkable. REPRODUCTIVE: Unremarkable. BONES: There is severe joint space narrowing in the right hip OTHER FINDINGS: There is edema and swelling of the left gluteal muscles measuring 3.6 cm in thickness compared to the right side which measures 2 cm. There is no discrete hematoma IMPRESSION: There is edema and swelling of the left gluteal muscles measuring 3.6 cm in thickness compared to the right side which measures 2 cm. There is no discrete hematoma
--- NOTE | 2018-10-22 16:10 | RAD ---
PROCEDURE: Left Hip X-ray Radiographs. HISTORY: fall on eliquis COMPARISON: None. FINDINGS: BONES: Normal. No fracture. JOINTS: Normal. SOFT TISSUES: Normal. OTHER FINDINGS: None. IMPRESSION: No acute findings related to/ accounting for the clinical presentation. Concordant results with the preliminary interpretation rendered by the emergency department physician procedure.
--- NOTE | 2018-10-22 16:12 | RAD ---
Date of service: 10/22/2018 PROCEDURE: Left Foot Radiographs. HISTORY: fall COMPARISON: None. FINDINGS: BONES: Normal. No fracture. JOINTS: Normal. SOFT TISSUES: Distal soft tissue swelling at the level of the metatarsal phalangeal joints. OTHER FINDINGS: None. IMPRESSION: Soft tissue swelling without acute articular or osseous abnormality. Concordant results with the preliminary interpretation rendered by the emergency department physician procedure.
--- NOTE | 2018-10-22 16:13 | RAD ---
Date of service: 10/22/2018 HISTORY: Trauma/fall COMPARISON: 05/15/2018 TECHNIQUE: Chest PA and lateral FINDINGS: LUNGS: No active pulmonary disease. PLEURA: No significant pleural effusion identified. No pneumothorax apparent. CARDIOVASCULAR: No aortic atherosclerotic calcification present. Position/ configuration of pacemaker No radiographic findings to suggest acute or significant cardiovascular disease. Incidental Finding(s): Postoperative changes related to sternotomy. OSSEOUS STRUCTURES: No significant abnormalities. VISUALIZED UPPER ABDOMEN: Normal. OTHER FINDINGS: None. IMPRESSION: No active disease. Concordant results with the preliminary interpretation rendered by the emergency department physician procedure.
[2018-10-22] MEDS ORDERED: DiphenhydrAMINE 12.5 mg/5 ml LIQ UD (5 ml) PO ONE (21:30)
--- NOTE | 2018-10-22 23:05 | CARD ---
APPROVED REPORT Date of service: 10/22/2018 EKG Measurement Heart [id number] <Conclusion> Demand pacemaker, interpretation is based on intrinsic rhythm Atrial flutter with variable block, a moderate ventricular response ST & Marked T wave abnormality, consider inferor ischemia Abnormal ECG
--- NOTE | 2018-10-22 23:42 | HP ---
DATE OF EXAM: 10/22/2018 CHIEF COMPLAINT: Fall, trauma, feeling fatigued. HISTORY OF PRESENT ILLNESS: Mr. Pola Murguia is 83 years old, my private patient with history of TIA, dementia, congestive heart failure, CABG, pacemaker, history of atrial fibrillation on Eliquis, history of COPD, insomnia, restless leg syndrome, came to the emergency department with the family for medical evaluation, after a fall two days ago. As per family, the patient became unsteady two days ago and he fell on his left side, sustaining a hematoma to the area. Family denies any head injury or any loss of consciousness. The patient is not a very good historian. The patient is able to ambulate after trauma, but became slow. No fever. No chills. No hematuria. No hematochezia. No headache or dizziness. No shortness of breath. PAST MEDICAL HISTORY: As above. 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 FAMILY HISTORY: Father and mother noncontributory. HABITS: No smoking. Alcohol, yes socially. Drugs, no. ALLERGIES: THE PATIENT IS ALLERGIC WITH LYRICA AND WITH AMBIEN. HOME MEDICATIONS: Lasix and potassium. REVIEW OF SYSTEMS: The patient was seen and examined at the bedside, looking comfortable. No weight changes or fever. No vision changes or photophobia. No hearing changes. Denies there is TMJ pain. No shortness of breath at this moment. No sputum or wheezing. No chest pain, palpitations, edema or calf pain. No abdominal pain, constipation, diarrhea, nausea or vomiting. No urinary symptoms. No dysuria, no output changes. Having a pain in the left hip due to fall. No rash, pruritus, skin lesion, or lacerations. No headache or dizziness. PHYSICAL EXAMINATION: VITAL SIGNS: Temperature 97.8, pulse 76, respiratory rate 16, blood pressure 120/58, pulse oximetry 97%. HEENT: Head; normocephalic, atraumatic. Eyes; PERRLA. Extraocular muscles intact. Conjunctivae clear. Nose patent. Mucous membranes moist. NECK: Supple. No carotid bruit. No JVD or thyromegaly. CHEST: Bilaterally symmetrical. HEART: S1 and S2 positive. LUNGS: Clear to auscultation. ABDOMEN: Soft. Bowel sounds positive. No organomegaly. EXTREMITIES: No edema. No cyanosis. NEUROLOGIC: Patient is awake, alert, and follows simple orders. LABORATORY DATA: Sodium 138, potassium 4.1, BUN 13, creatinine 0.8, glucose 106. Troponin less than 0.01, we will do two more sets. TSH 0.99. White blood cells 5.3, hemoglobin 11.2, hematocrit 43.3, platelets 150. ASSESSMENT AND PLAN: Mr. Pola Murguia is an 83-year-old male with anemia, hematuria, urinary tract infection, came with trauma fall, feeling fatigued and tired. CAT scan of abdomen and pelvis done. There is edema and swelling of the left gluteal muscles, maybe 3.6 cm in thickness compared to the right side, which measures 2 cm. There is no discrete hematoma. Cervical spine CT done. No acute findings related accordingly for the clinical presentation. Severe multilevel degenerative changes in the cervical spine. Chest x-ray is reviewed by me, no active disease. CAT scan of the head done. No acute intracranial abnormalities, no significant findings found for the clinical presentation. No significant interval change compared to the prior examination. X-ray of the hip and pelvis done. No acute findings according to the clinical presentation, there is no fracture. X-ray of the foot done. Soft tissue swelling without acute articular or osseous abnormalities. History of chronic obstructive pulmonary disease, insomnia, restless leg syndrome, history of dementia. Now admitted the patient with urinary tract infection. Called consult with Dr. Quarles, rocephine given in the emergency room. Started his home medications Aldactone Cardizem, Eliquis. The patient has pacemaker, Lasix. Proton pump inhibitor given for gastrointestinal prophylaxis. The patient should be on fall precautions. Physical therapy ordered. Repeat labs. We will follow up. Susie Ward MD [facility]
--- NOTE | 2018-10-23 02:12 | CON ---
DATE: 10/22/2018 PULMONARY CONSULT REFERRING PHYSICIAN: Dr. Ward REASON FOR CONSULT: Multiple falls, insomnia, poor memory. HISTORY OF PRESENT ILLNESS: This is an 83-year-old gentleman known to me from the office and previous admission, has multiple medical issues, lately becoming more forgetful, Alzheimer-type dementia, heart failure, coronary artery disease, history of pacemaker, on anticoagulation, has severe peripheral neuropathy, also has restless leg syndrome. According to , he is becoming more forgetful lately. He was given melatonin as an outpatient, did not do much for him. On high dose of Neurontin because of severe restless leg pain and discomfort. According to , he fell 2-3 days ago on his buttock, has a large hematoma, ecchymotic area. No hemoptysis, no hematemesis, no hematuria, no diarrhea reported. PAST MEDICAL HISTORY: Cardiomyopathy, coronary artery disease, cardiac arrhythmia requiring pacemaker, Alzheimer-type dementia, history of restless leg syndrome, also has a history of stroke, history of coronary stent, chronic lung disease, history of renal stone, hypothyroid, anemia, history of shingles, insomnia. ALLERGIC: TO SHAISTA GARRIDO. MEDICATIONS: He is getting Aldactone 25 mg daily, Coreg 12.5 mg daily, Eliquis 5 mg twice a day, Lasix 40 mg daily, Lipitor 20 mg daily, Neurontin 300 mg h.s., Protonix 40 mg daily, Rocephin 1 g IV daily. REVIEW OF SYSTEMS: Denied any headache or rhinitis. No cough, no sputum production. No chest pain. No nausea. Has left buttock and back of the leg bruise. No swelling. PHYSICAL EXAMINATION: GENERAL: No acute distress. VITAL SIGNS: Temp is 98, heart rate 86, respiratory rate is 18, blood pressure 138/62, pulse ox 98% room air. HEENT: Moist mucous membrane. Crowded airway. NECK: Supple. No JVD. LUNGS: Have scattered rhonchi. HEART: S1 and S2. ABDOMEN: Soft, nontender, no organomegaly. EXTREMITIES: He has a left buttock hematoma, large ecchymotic area, otherwise no edema. NEUROLOGIC: Awake, alert, does follow simple commands, very hard of hearing. LABORATORY DATA: Shows hemoglobin 11.3, hematocrit 34.3, WBC 5.3, platelet is 150. INR 2.8. PTT is 39. Sodium 138, potassium 4.1, chloride 100, bicarbonate 29, BUN 13, creatinine 0.8, glucose 106, calcium 9.4, magnesium 2.4, AST 28, ALT 13, alk phos is 72. Albumin 3.7. TSH 0.99. Urinalysis shows nitrites positive, blood moderate, large leukocyte, wbc's too numerous to count. Microbiology cultures are pending. IMPRESSION AND PLAN: Urinary tract infection, status post fall with large left buttock hematoma, history of severe restless leg syndrome, atrial fibrillation, hypertension, dementia, bradycardia, history of hypothyroid, probably Alzheimer-type dementia adding up into insomnia. Pulmonary point of view, doing okay. Spoke to the in detail. X-rays unremarkable. We will follow H and H. We will continue Eliquis for now. Started on Rocephin for UTI. We will get orthostatic hypotension pressure. May add trazodone 50 mg h.s. Continue melatonin 6 mg h.s. Fall precaution. We will get Physical Therapy consult. Spoke to the patient's at bedside, all their questions answered. Thank you and we will follow with you. Nabeel Black MD
[2018-10-23 07:24] LABS: HEMOGLOBIN 12.6 g/dL (14.0-18.0); MEAN CELL VOLUME 92.9 fl (80.0-105.0); MEAN CORPUSCULAR HEMOGLOBIN 30.7 pg (25.0-35.0); MEAN PLATELET VOLUME 9.7 fl (7.0-11.0); RBC 4.11 10^6/uL (3.5-6.1); RED CELL DISTRIBUTION WIDTH 14.5 % (11.5-14.5); WHITE BLOOD COUNT 8.6 10^3/uL (4.5-11.0)
[2018-10-23 07:36] LABS: IRON 89 ug/dL (45-180)
[2018-10-23 07:43] LABS: BLOOD UREA NITROGEN 18 mg/dL (7-21); CALCIUM 9.7 mg/dL (8.4-10.5); GFR NON-AFRICAN AMERICAN > 60; HDL CHOLESTEROL 50 mg/dL (29-60)
[2018-10-23 07:47] LABS: LDL CHOLESTEROL 47 mg/dL (0-129); TROPONIN I 0.02 ng/mL
[2018-10-23 07:48] LABS: % IRON SATURATION 28 % (20-55); TOTAL IRON BINDING CAPACITY 315 ug/dL (261-462)
[2018-10-23] MEDS: cefTRIAXone 1 gm 1 GM/100 ML BAG IVPB SCH (10:31)
[2018-10-23] MEDS: Pantoprazole 40 mg EC Tab PO SCH (11:26)
[2018-10-23 13:00] LABS: TROPONIN I 0.02 ng/mL
[2018-10-23 13:06] LABS: FOLATE > 20.0 ng/mL
--- NOTE | 2018-10-23 14:23 | CP.PCM.PCO ---
Physician Communication Note - Physician Communication Note Physician Communication Note: UTI cont antibiotics, gluteal hematoma, PT eval pending
--- NOTE | 2018-10-23 16:05 | PN ---
DATE: 10/23/2018 PULMONARY PROGRESS NOTE REFERRING PHYSICIAN: Susie Ward MD SUBJECTIVE: The patient is seen sitting in chair in room. No acute distress. No overnight events reported. Nursing staff reports that the patient slept well last night. No headache, rhinitis, cough, shortness of breath, chest pain, abdominal pain, nausea, vomiting, diarrhea, leg pain or leg swelling reported. OBJECTIVE: GENERAL: No acute distress. VITAL SIGNS: Blood pressure 168/75, pulse 80, temperature 98 and oxygen saturation 96% on room air. HEENT: Moist mucous membranes. Crowded airway. NECK: Supple. No JVD. LUNGS: Fair airflow bilaterally. CARDIOVASCULAR: S1 and S2. ABDOMEN: Soft and tender. No organomegaly. EXTREMITIES: Ecchymotic area to left thigh. Left buttock hematoma. NEUROLOGIC: Awake, alert and verbal. Hard of hearing. MEDICATIONS: Reviewed. Eliquis 5 mg twice a day, Lipitor 20 mg at dinner, Coreg 12.5 mg daily, Rocephin 1 g daily, Lasix 40 mg daily, Neurontin 300 mg at bedtime, Protonix 40 mg in the morning, spironolactone 25 mg daily and trazodone 50 mg at bedtime. LABORATORY DATA: Reviewed. WBC 8.6, RBC 4.11, hemoglobin 12.6, hematocrit 38.2 and platelets 197. Sodium 138, potassium 4.3, chloride 100, carbon dioxide 26, anion gap 16, BUN 18, creatinine 0.9, GFR greater than 60, random glucose 135 and calcium 9.7. Lactate dehydrogenase 439 and total creatine kinase 79. Troponin 0.02. Triglycerides 68, cholesterol 111, LDL cholesterol 47, HDL cholesterol 50 and TSH 1.14. Foot x-ray shows soft tissue swelling without acute articular or osseous abnormalities. EKG shows atrial flutter with variable block moderate ventricular response. Hip and pelvis x-ray shows no acute findings. Head CT shows no acute intracranial abnormalities, progressive pansinusitis. Chest x-ray shows no acute disease. Cervical spine CT shows severe multilevel degenerative changes. No acute findings. Abdomen and pelvis CT shows edema and swelling of left gluteal muscles. IMPRESSION AND PLAN: Urinary tract infection, status post fall with large left buttock hematoma. CT showing pansinusitis, history of severe restless leg syndrome, atrial fibrillation, hypertension, dementia, bradycardia, hypothyroidism, Alzheimer's type dementia and insomnia. I spoke with nursing staff today. Orthostatic blood pressures were done, sitting blood pressure was 143/74, lying 142/65 and standing 123/66. Orthostatic hypotension precaution, fall precaution and continue antibiotic therapy. This patient is seen and examined with Dr. Black. Discussed assessment and plan as described above. This patient is seen and examined with Nikolai Brunson, nurse practitioner. Discussed assessment and plan as described above. Thank you for this consult and we will follow with you. Nikolai Brunson APN Nabeel Black MD [facility]
--- NOTE | 2018-10-23 22:52 | CP.PCM.CON ---
History of Present Illness - History of Present Illness History of Present Illness: 83 year old male with PMH of CAD S/P CABG, history of TIA, chronic CHF, S/P pacemaker placement, COPD, history of CVA, history of kidney stones, hypothyroidism, came [place] [facility] [place] on his left side and sustained a hematoma on that side. Urinalysis was done in the ED which is suggestive of UTI. He does not complain of dysuria but has occasional urinary frequency. He denies fever or chills, no nausea or vomiting, no chest pain, no SOB, no headache or dizziness, no chest pain, no SOB, no cough or rhinorrhea, no abdominal pain, no diarrhea. Infectious Diseases consult is requested to further evaluate and manage. Review of Systems - Review of Systems All systems: reviewed and no additional remarkable complaints except (as per HPI) Past Patient History - Infectious Disease Hx of Infectious Diseases: None - Tetanus Immunizations Tetanus Immunization: Unknown - Past Medical History & Family History Past Medical History?: Yes - Past Social History Smoking Status: Unknown If Ever Smoked - CARDIAC Hx Cardiac Disorders: Yes (CAD, CABGx 4, cardiac stents) Hx Congestive Heart Failure: Yes Hx Pacemaker: Yes (05/2018) - PULMONARY Hx Respiratory Disorders: Yes Hx Chronic Obstructive Pulmonary Disease (COPD): Yes - NEUROLOGICAL Hx Neurological Disorder: Yes Hx Alzheimer's Disease: Yes HX Cerebrovascular Accident: Yes Hx Transient Ischemic Attacks (TIA): Yes - HEENT Hx HEENT Problems: Yes (DECREASED PHERIPHERAL VISION) Hx Deafness: Yes (DEAF ON RIGHT BILL [place]OUGH LEFT) Other/Comment: wears eyeglasses - RENAL Hx Chronic Kidney Disease: Yes Hx Kidney Stones: Yes Hx Renal Failure: Yes - ENDOCRINE/METABOLIC Hx Endocrine Disorders: Yes Hx Hypothyroidism: Yes - HEMATOLOGICAL/ONCOLOGICAL Hx Blood Disorders: Yes Hx Anemia: Yes Hx Shingles: Yes - INTEGUMENTARY Hx Dermatological Problems: Yes Other/Comment: ecchymosis and hematoma L buttock/hip area - MUSCULOSKELETAL/RHEUMATOLOGICAL Hx Musculoskeletal Disorders: Yes Hx Falls: Yes - GASTROINTESTINAL Hx Gastrointestinal Disorders: Yes (gi bleed) Other/Comment: weight fluctuates from 170 lbs to 150 lbs as per - GENITOURINARY/GYNECOLOGICAL Hx Genitourinary Disorders: Yes Hx Prostate Problems: Yes (BPH PHIMOSIS) Hx Urinary Tract Infection: Yes - PSYCHIATRIC Hx Psychophysiologic Disorder: Yes (INSOMNIA) Other/Comment: salicylate poisoning about 3 yrs ago - SURGICAL HISTORY Hx Surgeries: Yes Hx Cardiac Catheterization: Yes Hx Coronary Stent: Yes (x 7 stents) Hx Open Heart Surgery: Yes Hx Orthopedic Surgery: Yes - ANESTHESIA Hx Anesthesia Reactions: No Hx Malignant Hyperthermia: No Meds Allergies/Adverse Reactions: Allergies Allergy/AdvReac Type Severity Reaction Status Date / Time pregabalin [From Lyrica] AdvReac aggitated Verified 05/13/18 07:38 zolpidem [From Ambien] AdvReac Sensitivity Verified 05/12/18 07:39 - Medications Medications: Current Medications Apixaban (Eliquis) 5 mg PO BID RADU; Protocol Atorvastatin Calcium (Lipitor) 20 mg PO DIN RADU Carvedilol (Coreg) 12.5 mg PO DAILY RADU Furosemide (Lasix) 40 mg PO DAILY RADU Gabapentin (Neurontin) 300 mg PO HS RADU Ceftriaxone Sodium (Rocephin 1 Gram Ivpb) 1 gm in 100 mls @ 100 mls/hr IVPB DAILY RADU; Protocol Pantoprazole Sodium (Protonix Ec Tab) 40 mg PO ACB RADU Spironolactone (Aldactone) 25 mg PO DAILY RADU Trazodone HCl (Desyrel) 50 mg PO HS RADU Last Admin: 10/23/18 00:30 Dose: Not Given Physical Exam - Constitutional Appears: Chronically Ill - Head Exam Head Exam: NORMAL INSPECTION - Respiratory Exam Respiratory Exam: Decreased Breath Sounds - Cardiovascular Exam Cardiovascular Exam: +S1, +S2 - GI/Abdominal Exam GI & Abdominal Exam: Soft. absent: Tenderness Results - Vital Signs Recent Vital Signs: Last Vital Signs Temp 97.9 F 10/23/18 02:12 Pulse 73 10/23/18 02:12 Resp 20 10/23/18 02:12 BP 163/68 H 10/23/18 02:12 Pulse Ox 94 L 10/23/18 02:12 - Labs Result Diagrams: 10/23/18 07:00 10/23/18 07:00 Labs: Laboratory Results - last 24 hr 10/22/18 10/22/18 10/22/18 13:00 13:05 13:05 WBC 5.3 RBC 3.66 Hgb 11.3 L Hct 34.3 L MCV 93.7 D MCH 30.9 MCHC 32.9 RDW 14.3 Plt Count 150 MPV 9.5 Neut % (Auto) 55.0 Lymph % (Auto) 26.2 [place] % (Auto) 8.7 H Eos % (Auto) 9.2 H Baso % (Auto) 0.9 Lymph # (Auto) 1.4 [place] # (Auto) 0.5 Eos # (Auto) 0.5 Baso # (Auto) 0.05 Absolute Neuts (auto) 2.91 PT 23.5 H INR 2.08 APTT 38.9 H Sodium Potassium Chloride Carbon Dioxide Anion Gap BUN Creatinine Est GFR ( Amer) Est GFR (Non-Af Amer) Random Glucose Calcium Magnesium Total Bilirubin AST ALT Alkaline Phosphatase Troponin I Total Protein Albumin Globulin Albumin/Globulin Ratio TSH 3rd Generation Urine Color Yellow Urine Appearance Turbid Urine pH 6.5 Ur Specific [place] 1.020 Urine Protein Negative Urine Glucose (UA) Negative Urine Ketones Negative Urine Blood Moderate H Urine Nitrate Positive H Urine Bilirubin Negative Urine Urobilinogen 0.2 Ur Leukocyte Esterase Large H Urine RBC 5 - 10 H Urine WBC Tntc H Urine Bacteria Trace Blood Type Antibody Screen BBK History Checked 10/22/18 10/22/18 10/22/18 13:05 13:05 14:05 WBC RBC Hgb Hct MCV MCH MCHC RDW Plt Count MPV Neut % (Auto) Lymph % (Auto) [place] % (Auto) Eos % (Auto) Baso % (Auto) Lymph # (Auto) [place] # (Auto) Eos # (Auto) Baso # (Auto) Absolute Neuts (auto) PT INR APTT Sodium 138 Potassium 4.1 Chloride 100 Carbon Dioxide 29 Anion Gap 12 BUN 13 Creatinine 0.8 Est GFR ( Amer) > 60 Est GFR (Non-Af Amer) > 60 Random Glucose 106 Calcium 9.4 Magnesium 2.0 Total Bilirubin 1.1 AST 28 ALT 13 Alkaline Phosphatase 72 Troponin I < 0.01 Total Protein 6.7 Albumin 3.7 Globulin 3.1 Albumin/Globulin Ratio 1.2 TSH 3rd Generation 0.99 Urine Color Urine Appearance Urine pH Ur Specific [place] Urine Protein Urine Glucose (UA) Urine Ketones Urine Blood Urine Nitrate Urine Bilirubin Urine Urobilinogen Ur Leukocyte Esterase Urine RBC Urine WBC Urine Bacteria Blood Type O POSITIVE Antibody Screen Negative BBK History Checked Patient has bt Assessment & Plan - Assessment and Plan (Free Text) Plan: Assessment consider UTI S/P fall on left sided without evidence of hip or pelvic fracture CAD S/P CABG history of TIA chronic CHF S/P pacemaker placement COPD history of CVA history of kidney stones hypothyroidism Plan Started Rocephin pending urine cx will monitor clinically
--- NOTE | 2018-10-24 03:52 | PN ---
DATE: 10/23/2018 SUBJECTIVE: The patient is an 83-year-old male. The patient was seen and examined at the bedside on 10/23/2018, looking comfortable. No fever. No chills. No hematuria or hematochezia. No swelling of the leg. No chest pain. No palpitation. PHYSICAL EXAMINATION: VITAL SIGNS: Blood pressure 130/70, pulse 80, temperature 98, oxygen saturation 96% on room air. HEENT: Head is normocephalic and atraumatic. Eyes PERRLA. Extraocular muscles intact. Conjunctivae clear. Nose patent. NECK: Supple. No carotid bruit. No JVD or thyromegaly. CHEST: Bilaterally symmetrical. HEART: S1, S2 positive. LUNGS: Clear to auscultation. ABDOMEN: Soft. Bowel sounds present. No organomegaly. EXTREMITIES: No edema. No cyanosis. NEUROLOGIC: Patient is awake, alert. Follows simple commands. MEDICATIONS: Eliquis, Lipitor, Coreg, Rocephin, Neurontin, Protonix, spironolactone, trazodone. LABORATORY DATA: White blood cells is 8.6, hemoglobin 12.6, hematocrit 38.2, platelets 197. Sodium 138, potassium 4.3, BUN 18, creatinine 0.9. ASSESSMENT AND PLAN: Mr. Blade Escalona is an 83-year-old male with advanced dementia, urinary tract infection, status post fall with large left buttock hematoma. Computed tomography scan showed pansinusitis, severe restless leg syndrome, insomnia, atrial fibrillation, hypertension, dementia, bradycardia, hypothyroidism. The patient is sometime getting very confused, especially ing, spoke to the patient's , Shari. After this admission, patient is supposed to go to [facility] for rehab, fall precautions. Seen by Dr. Noel Em, Infectious Disease, status post coronary artery disease, status post coronary artery bypass graft, pacemaker placement, chronic obstructive pulmonary disease. The patient with severe disease, benign prostatic hypertrophy. The patient is getting Rocephin but now final treatment depend on the culture. Repeat labs. We will follow up. Susie Ward MD [facility]
[2018-10-24] MEDS: cefTRIAXone 1 gm 1 GM/100 ML BAG IVPB SCH (10:27)
[2018-10-24] MEDS: Cefepime 1gm in NS 100ml 1 GM/100 ML BAG IVPB SCH ×2 (13:09→21:49)
[2018-10-24] MEDS: Pantoprazole 40 mg EC Tab PO SCH (13:11)
--- NOTE | 2018-10-24 13:32 | PN ---
DATE: 10/24/2018 PULMONARY PROGRESS NOTE REFERRING PHYSICIAN: Susie Ward MD SUBJECTIVE: The patient is seen pacing in his room and in the hallway, noted agitated, when approached very confused. Nursing staff reports that the patient was given trazodone at bedtime, which was ineffective. Order was obtained for Seroquel, which was given, but the patient refused. The patient kept pacing back and forth last night and eventually fell asleep at 4:00 this morning. During this visit, the patient is confused, walking in and out of room. No acute distress. No hemoptysis, hematemesis, hematuria, diarrhea, leg swelling reported. OBJECTIVE VITAL SIGNS: Blood pressure 124/52, and pulse 83. Afebrile. GENERAL: Some distress due to confusion. HEENT: Moist mucous membranes. NECK: No JVD. LUNGS: Fair airflow bilaterally. CARDIOVASCULAR: S1 and S2. ABDOMEN: Soft and nontender. No distention. EXTREMITIES: No bilateral lower extremity edema. NEUROLOGIC: Awake, alert, verbal, confused, hard of hearing. MEDICATIONS: Reviewed. Eliquis 5 mg twice a day, Lipitor 20 mg at dinner, Coreg 12.5 mg daily, cefepime 1 g every 8 hours, Lasix 40 mg daily, Neurontin 300 mg at bedtime, Protonix 40 mg in the morning, spironolactone 25 mg daily, and trazodone 50 mg at bedtime. LABORATORY DATA: Reviewed. Urine culture positive for Pseudomonas aeruginosa. IMPRESSION AND PLAN: Urinary tract infection, status post fall with large left buttock hematoma, history of severe restless leg syndrome, atrial fibrillation, hypertension, dementia, bradycardia, pansinusitis, hypothyroidism, Alzheimer's type dementia and insomnia. We will ordered Psychiatry consult. Orthostatic hypotension precaution, fall precaution and continue antibiotic per Infectious Disease. This patient is seen and examined with Dr. Black. Discussed assessment and plan as described above. This patient is seen and examined with Nikolai Brunson, nurse practitioner. Discussed assessment and plan as described above. Thank you for this consult and we will follow with you. Nikolai Brunson APN Nabeel Black [facility] # [id number]
--- NOTE | 2018-10-24 13:55 | CP.PCM.PCO ---
Physician Communication Note - Physician Communication Note Physician Communication Note: psyche consult pending, continue anitibiotics as per ID for UTI
--- NOTE | 2018-10-24 16:39 | CP.PCM.PN ---
Subjective - Date & Time of Evaluation Date of Evaluation: 10/24/18 Time of Evaluation: 13:05 - Subjective Subjective: Comfortable in bed, no fevers. Objective - Vital Signs/Intake and Output Vital Signs (last 24 hours): Temp Pulse Resp BP Pulse Ox 98.3 F 86 20 135/61 98 10/23/18 17:19 10/23/18 17:19 10/23/18 17:19 10/23/18 17:19 10/23/18 17:19 Intake and Output: 10/23/18 10/24/18 18:59 06:59 Intake Total 1380 Balance 1380 - Medications Medications: Current Medications Apixaban (Eliquis) 5 mg PO BID [facility]; Protocol Last Admin: 10/23/18 18:18 Dose: 5 mg Atorvastatin Calcium (Lipitor) 20 mg PO DIN [facility] Last Admin: 10/23/18 18:18 Dose: 20 mg Carvedilol (Coreg) 12.5 mg PO DAILY [facility] Last Admin: 10/23/18 10:31 Dose: 12.5 mg Furosemide (Lasix) 40 mg PO DAILY [facility] Last Admin: 10/23/18 10:32 Dose: 40 mg Gabapentin (Neurontin) 300 mg PO HS [facility] Last Admin: 10/23/18 20:16 Dose: 300 mg Ceftriaxone Sodium (Rocephin 1 Gram Ivpb) 1 gm in 100 mls @ 100 mls/hr IVPB [facility]; Protocol Last Admin: 10/23/18 10:31 Dose: 100 mls/hr Pantoprazole Sodium (Protonix Ec Tab) 40 mg PO ACB [facility] Last Admin: 10/23/18 11:26 Dose: 40 mg Spironolactone (Aldactone) 25 mg PO DAILY [facility] Last Admin: 10/23/18 10:32 Dose: 25 mg Trazodone HCl (Desyrel) 50 mg PO HS [facility] Last Admin: 10/23/18 20:14 Dose: 50 mg - Labs Labs: 10/23/18 07:00 10/23/18 07:00 PT 23.5 SECONDS (9.4-12.5) H 10/22/18 13:05 INR 2.08 10/22/18 13:05 APTT 38.9 Seconds (26.9-38.3) H 10/22/18 13:05 - Constitutional Appears: Chronically Ill - Head Exam Head Exam: NORMAL INSPECTION - Respiratory Exam Respiratory Exam: Decreased Breath Sounds - Cardiovascular Exam Cardiovascular Exam: +S1, +S2 - GI/Abdominal Exam GI & Abdominal Exam: Soft. absent: Tenderness Assessment and Plan - Assessment and Plan (Free Text) Plan: Assessment consider UTI with Pseudomonas S/P fall on left sided without evidence of hip or pelvic fracture CAD S/P CABG history of TIA chronic CHF S/P pacemaker placement COPD history of CVA history of kidney stones hypothyroidism Plan switched antibiotics to Cefepime will continue to monitor clinically
--- NOTE | 2018-10-25 00:56 | PN ---
DATE: 10/24/2018 SUBJECTIVE: The patient is an 83-year-old male. The patient was seen and examined at the bedside on 10/24/2018. Today, looks comfortable. No fever. No chills. No hematuria or hematochezia. No headache, no dizziness. No chest pain. No palpitation, but is confused. PHYSICAL EXAMINATION: VITAL SIGNS: Temperature 98.3, pulse 86, respiratory rate 20, blood pressure 135/61, and pulse oximetry 98%. HEENT: Head is normocephalic and atraumatic. Eyes; PERRLA. Extraocular muscles intact. Conjunctivae clear. Nose patent. Mucous membranes moist. NECK: Supple. No carotid bruit. No JVD or thyromegaly. CHEST: Bilaterally symmetrical. HEART: S1 and S2 positive. LUNGS: Clear to auscultation. ABDOMEN: Soft. Bowel sounds present. No organomegaly. EXTREMITIES: No edema. No cyanosis. NEUROLOGIC: Patient is awake, alert. Follows simple commands, but is confused. MEDICATIONS: Eliquis, atorvastatin, Coreg, Lasix, Neurontin, Rocephin, Protonix, Aldactone, and trazodone. LABORATORY DATA: White blood cells 8.6, hemoglobin 12.6, hematocrit 38.2, and platelets 197. Sodium 138, potassium 4.3, BUN 18, creatinine 0.9, and glucose 135. ASSESSMENT AND PLAN: Mr. Blade Escalona is an 83-year-old male with anemia, hyperglycemia, has urinary tract infection with Pseudomonas, status post fall on left side did without evidence of hip or pelvic fracture. Coronary artery disease, status post coronary artery bypass graft, history of transient ischemic attack, congestive heart failure, pacemaker placement, chronic obstructive pulmonary disease, obstructive sleep apnea syndrome, peripheral vascular disease, cerebrovascular accident, history of kidney stones, hypothyroidism. The patient is getting antibiotics, getting cefepime as per ID. The patient was very anxious having sundowning from couple of days. Psych consult called. Ativan given. After that, the patient became comfortable. Discussion was had with the patient's and nurse practitioner, Has very severe restless leg syndrome, atrial fibrillation, hypertension, bradycardia, pansinusitis. GI and DVT prophylaxis. Out of bed physical therapy. Discussion done with the about senior living placement. We will follow up. Susie Ward MD [facility] # [id number] [facility]
[2018-10-25] MEDS: Cefepime 1gm in NS 100ml 1 GM/100 ML BAG IVPB SCH ×3 (06:55→21:19)
[2018-10-25] MEDS: Pantoprazole 40 mg EC Tab PO SCH (08:31)
--- NOTE | 2018-10-25 10:32 | PN ---
DATE: 10/25/2018 PULMONARY PROGRESS NOTE REFERRING PHYSICIAN: Susie Ward MD. SUBJECTIVE: The patient is seen lying in bed, less agitated this morning, still confused. No hemoptysis, hematemesis, hematuria, diarrhea, leg swelling reported by nursing staff. Noted throughout the night attempting to climb out of bed. At times, was able to be redirected. OBJECTIVE: VITAL SIGNS: Blood pressure 122/78, pulse 85, temperature 97.9, oxygen saturation 93% on room air. GENERAL: No acute distress. HEENT: Moist mucous membranes. NECK: Supple. No JVD. LUNGS: Fair airflow bilaterally. CARDIOVASCULAR: S1 and S2. ABDOMEN: Soft and nontender. No distention. No organomegaly. EXTREMITIES: No bilateral lower extremity edema. NEUROLOGIC: Awake, alert and verbal, confused, hard of hearing. MEDICATIONS: Reviewed. Eliquis 5 mg twice a day, Lipitor 20 mg dinner, Coreg 12.5 mg daily, cefepime 1 g every 8 hours, Lasix 40 mg daily, Neurontin 300 mg at bedtime, Protonix 40 mg in the morning, spironolactone 25 mg daily, trazodone 100 mg daily. LABORATORY DATA: Reviewed. No new labs since yesterday. IMPRESSION AND PLAN: Urinary tract infection status post fall, history of severe restless leg syndrome, atrial fibrillation, hypertension, dementia, bradycardia, hypothyroidism, Alzheimer's type dementia, insomnia, pending psychiatry consult, orthostatic hypotension precaution, fall precaution. Continue antibiotics per Infectious Disease for urinary tract infection. We will order Pyridium for 3 days for the patient to help with urinary discomfort. The patient was seen and examined with Dr. Black. Discussed assessment and plan as described above. The patient was seen and examined with Nikolai Brunson, nurse practitioner. Discussed the assessment and plan as described above. Thank you for this consult. We will follow with you. Nikolai Brunson APN Nabeel Black MD
--- NOTE | 2018-10-25 19:02 | PN ---
DATE: 10/25/2018 SUBJECTIVE: The patient is in bed in no acute distress, nontoxic. PHYSICAL EXAMINATION VITAL SIGNS: Temperature is 97, blood pressure is 120/60, respiratory rate of 18. HEENT: Unremarkable. NECK: Supple. HEART: Normal S1, S2. ABDOMEN: Soft. LABORATORY EXAMINATION: Reveals a white count of 8.6 and hemoglobin of 12. Chemistries are reveals a BUN of 18, creatinine of 0.9. Cultures; Pseudomonas is noted from the urine from the relatively sensitive to Cipro and meropenem, cefepime, Zosyn, piperacillin and tazobactam. Review of orders reveals the patient to be on cefepime. ASSESSMENT AND PLAN: This is an 83-year-old with Pseudomonas, urinary tract infection status post fall, left sided, without evidence of hip or pelvic fracture, coronary artery disease status post coronary bypass graft, history of transient ischemic attack, chronic congestive heart failure, pacemaker placement, chronic obstructive pulmonary disease, on cefepime. We will continue present course. Stefan Quarles MD
--- NOTE | 2018-10-25 20:53 | CON ---
DATE: 10/25/2018 HISTORY OF PRESENT ILLNESS: The patient is an 83-year-old male with a history of multiple medical issues. Please see medical notes for full detail, who is being seen by Psychiatry due to episodes of confusion and agitation. The patient also has had restless behavior and has had difficulty following directions. The patient presented with having similar presentation in 05/2008, and was secondary to delirium and early dementia which resolved very quickly within the couple of days. Dr. Alicea's consultation was noted, was reviewed at that time. The patient has had episodes of irritable behavior per staff notes, difficulty with sleeping, is not overtly hallucinating at this time, however, has been restless and difficult to calm down. The patient does not have any psychiatric history except for that consultation by Dr. Alicea. I met with him at that time, he is aware that it is [id number], and he is hospitalized, he does not know what the current month. He reports that he is anxious however he is depressed about being here, but in general, does not feel depressed. He is worried because he does know why he is hospitalized, but more information not actively hallucinating. Denies any perceptual disturbance in this regard, though does have a history of such. Insight and judgment are considered to be little bit improved when compared to description of prior behaviors. PHYSICAL EXAMINATION: VITAL SINGS: Reviewed. LABORATORY DATA: Reviewed. RELEVANT PSYCHIATRIC MEDICATIONS: Include trazodone 100 mg daily and Neurontin 300 mg at bedtime. IMPRESSION: History of early dementia as well as delirium. RECOMMENDATIONS: At this time, I will start Seroquel 12.5 mg at bedtime, also the patient is dispensed for him as well as I will also start low dose benzo. The patient is unclear why he is on trazodone 100 mg daily, should he take it at night for the most part, he used to be at 50 mg at bedtime when reviewing the OCT early . Psychiatry followup every other day. Follow up if there are any urgent need for re-consultation. Casey Rosario MD [facility] # [id number]
--- NOTE | 2018-10-26 02:26 | PN ---
DATE: 10/25/2018 SUBJECTIVE: The patient is an 83-year-old male. The patient was seen and examined at the bedside on 10/25/2018. was sitting on the bedside. He is looking comfortable. Last night, he had good sleep. No fever. No chills. No hematuria or hematochezia. No headache. No dizziness. No chest pain. No palpitation. PHYSICAL EXAMINATION: VITAL SIGNS: Blood pressure 120/70, pulse 80, temperature 98, oxygen saturation 94%. HEENT: Head is normocephalic and atraumatic. Eyes, PERRLA. Extraocular muscles intact. Conjunctivae clear. Nose patent. Mucous membranes moist. NECK: Supple. No carotid bruit. No JVD or thyromegaly. CHEST: Bilaterally symmetrical. HEART: S1 and S2 positive. LUNGS: Clear to auscultation. ABDOMEN: Soft. Bowel sounds positive. No organomegaly. EXTREMITIES: No edema. No cyanosis. NEUROLOGIC: The patient is awake and alert. Moving all four extremities. No focal deficit. MEDICATIONS: Eliquis, Lipitor, Coreg, cefepime, Lasix, Neurontin, Protonix, spironolactone and trazodone. LABORATORY DATA: We do not have lab today but reviewed old labs. ASSESSMENT AND PLAN: Mr. Blade Escalona is an 83-year-old male, came with altered mental status, dementia, depression, urinary tract infection, status post fall, history of severe restless legs syndrome, atrial fibrillation, hypertension, bradycardia, hypothyroidism, insomnia, seen by psychiatrist for anxiety and sundowning. Continue antibiotics. nurse practitioner ordered Pyridium. Dr. Black saw the patient. Discussion done with about physical therapy, subacute rehab and long-term care plan. We will follow up. Susie Ward MD [facility]
[2018-10-26] MEDS: Cefepime 1gm in NS 100ml 1 GM/100 ML BAG IVPB SCH ×3 (06:56→21:52)
[2018-10-26] MEDS: Pantoprazole 40 mg EC Tab PO SCH (10:58)
--- NOTE | 2018-10-26 12:19 | PN ---
DATE: 10/26/2018 SUBJECTIVE: The patient is in bed in no acute distress, nontoxic. The patient seen earlier in [facility], bed 2. PHYSICAL EXAMINATION: VITAL SIGNS: Temperature is 98, blood pressure is 120/60, respiratory rate of 18, heart rate of 85. HEENT: Unremarkable. NECK: Supple. LUNGS: Have decreased breath sounds. HEART: Normal S1, S2. ABDOMEN: Soft, nontender. LABORATORY EXAMINATION: Reveals the patient's white count of 8.6, hemoglobin of 12 and BUN of 18, creatinine of 0.9. Urinalysis is noted. Microbiology reveals Pseudomonas in the urine from the 10/22/2018, sensitive to cefepime. Review of orders reveals the cefepime to be active. ASSESSMENT AND PLAN: This is an 83-year-old with Pseudomonas urinary tract infection status post fall with left-sided without any evidence of hip or pelvic fracture, history of coronary artery disease, coronary artery bypass graft, history of transient ischemic attack, chronic congestive heart failure, pacemaker placement on cefepime. Pseudomonas and urine prostate workup by Urology. Day #3 of cefepime. We will follow with you. Stefan Quarles MD
--- NOTE | 2018-10-26 14:29 | PN ---
DATE: 10/26/2018 PULMONARY PROGRESS NOTE REFERRING PHYSICIAN: Susie Ward MD SUBJECTIVE: This patient was seen early this morning, lying in bed, asleep, but arousable. No acute distress. Nursing staff report that the patient slept last night. No hemoptysis, hematemesis, hematuria, diarrhea, leg swelling reported. OBJECTIVE: VITAL SIGNS: Blood pressure 127/65, pulse 67, temperature 98, oxygen saturation 98 on room air. GENERAL: No acute distress. HEENT: Moist mucous membranes. Mallampati score of 4. NECK: Supple. No JVD. LUNGS: Fair airflow bilaterally. CARDIOVASCULAR: S1, S2. ABDOMEN: Soft, nontender, no distention, no organomegaly. EXTREMITIES: No bilateral lower extremity edema. NEUROLOGIC: Asleep, but easily arousable, confused. MEDICATIONS: Reviewed. Xanax 0.25 mg every 8 hours p.r.n., Eliquis 5 mg twice a day, Lipitor 20 mg with dinner, Coreg 12.5 mg daily, cefepime 1 g every 8 hours, Lasix 40 mg daily, Neurontin 300 mg at bedtime, Protonix 40 mg in the morning, Pyridium 100 mg, Seroquel 12.5 mg at bedtime, Spirolactone 25 mg daily, trazodone 50 mg at bedtime. LABORATORY DATA: Reviewed. No new labs. IMPRESSION AND PLAN: Urinary tract infection, patient is status post fall at home, history of severe restless leg syndrome, atrial fibrillation, hypertension, dementia, bradycardia, hypothyroidism, Alzheimer's type dementia, insomnia, patient is seen by Psychiatry, started on Seroquel at bedtime and p.r.n Xanax. Continue antibiotics per Infectious Disease for urinary tract infection. The patient is currently getting Pyridium for a total of three days to help with urinary discomfort. The patient is at risk for fall precaution. This patient was seen and examined with Dr. Black. Discussed assessment and plan as described above. This patient was seen and examined with Nikolai Brunson, nurse practitioner. Discussed assessment and plan as described above. Thank you for this consult. We will follow with you. Nikolai Brunson APN Nabeel Black MD [facility] # [id number]
--- NOTE | 2018-10-26 23:18 | PN ---
DATE: 10/26/2018 SUBJECTIVE: Patient is an 83-year-old male. Patient was seen and examined at bedside on 10/26/2018, looking comfortable. No fever. No chills. No hematuria or hematochezia. No headache. No dizziness. No chest pain. No palpitations. PHYSICAL EXAMINATION: VITAL SIGNS: Blood pressure 127/65, pulse 65, respiratory rate 18, and temperature 98. HEENT: Head is normocephalic and atraumatic. Eyes; PERRLA. Extraocular muscles intact. Conjunctivae clear. Nose patent. Mucous membrane moist. NECK: Supple. No carotid bruit. No JVD or thyromegaly. CHEST: Bilaterally symmetrical. HEART: S1 and S2 positive. LUNGS: Clear to auscultation. ABDOMEN: Soft. Bowel sounds positive. No organomegaly. EXTREMITIES: No edema. No cyanosis. NEUROLOGIC: Patient is awake, alert. Moving all 4 extremities. No focal deficits. MEDICATIONS: Xanax, Eliquis, Lipitor, Coreg, cefepime, Lasix, Neurontin, Protonix, Pyridium, Seroquel, spironolactone, and trazodone. LABORATORY DATA: We do not have recent lab today, but I reviewed old labs. ASSESSMENT AND PLAN: Mr. Blade Escalona is an 83-year-old male with urinary tract infection, advanced dementia, status post fall at home, history of severe restless legs syndrome, atrial fibrillation, hypertension noncompliant, bradycardia, hypothyroidism, and insomnia. Patient had sundowning seen by Psychiatry, started on Seroquel at that time and p.r.n. Xanax. I heard today patient was sleeping up to 11 a.m. We will discontinue Xanax. Continue antibiotics as per Infectious Disease. Repeat labs. We will follow up. Susie Ward MD
[2018-10-27] MEDS: Cefepime 1gm in NS 100ml 1 GM/100 ML BAG IVPB SCH ×3 (05:15→22:01)
[2018-10-27] MEDS: Pantoprazole 40 mg EC Tab PO SCH (10:27)
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
[2018-10-27 12:15] LABS: BASO # 0.03 K/mm3 (0.0-2.0); BASO % 0.5 % (0.0-3.0); EOS # 0.7 (0.0-0.7); EOS % 12.1 % (1.5-5.0); HEMOGLOBIN 10.7 g/dL (14.0-18.0); LYMPH # 1.3 (1.2-3.4); LYMPH % 20.9 % (22.0-35.0); MEAN CELL VOLUME 94.6 fl (80.0-105.0); MEAN CORPUSCULAR HEMOGLOBIN 30.6 pg (25.0-35.0); MEAN CORPUSCULAR HGB CONC 32.3 g/dl (31.0-37.0); MEAN PLATELET VOLUME 9.2 fl (7.0-11.0); MONO # 0.5 (0.1-0.6); MONO % 7.6 % (1.0-6.0); RBC 3.5 10^6/uL (3.5-6.1); RED CELL DISTRIBUTION WIDTH 14.6 % (11.5-14.5)
[2018-10-27 12:31] LABS: ALB/GLOB RATIO 1.1 (1.1-1.8); ALBUMIN 3.4 g/dL (3.0-4.8); ALT/SGPT 17 U/L (7-56); AST/SGOT 25 U/L (17-59); BLOOD UREA NITROGEN 17 mg/dL (7-21); CALCIUM 8.8 mg/dL (8.4-10.5); GFR NON-AFRICAN AMERICAN > 60
--- NOTE | 2018-10-27 16:24 | PN ---
DATE: 10/27/2018 PULMONARY PROGRESS NOTE REFERRING PHYSICIAN: Susie Ward MD SUBJECTIVE: The patient was seen in room, at bedside. No acute distress. No overnight events reported. The patient continues to get up, attempt to walk despite being on fall precaution. No headache, rhinitis, cough, shortness of breath, chest pain, abdominal pain, nausea, vomiting, diarrhea, leg pain or leg swelling reported. OBJECTIVE: GENERAL: No acute distress. VITAL SIGNS: Blood pressure 125/61, pulse 65, temperature 98.3 and oxygen saturation 96% on room air. HEENT: Moist mucous membranes. Mallampati score of 4. NECK: Supple. No JVD. LUNGS: Fair airflow bilaterally. CARDIOVASCULAR: S1 and S2. ABDOMEN: Soft and nontender. No distention. No organomegaly. EXTREMITIES: No bilateral lower extremity edema. NEUROLOGIC: Awake, alert, verbal and confused. MEDICATIONS: Reviewed. Xanax 0.25 mg every 8 hours p.r.n., Eliquis 5 mg twice a day, Lipitor 20 mg at dinner, Coreg 12.5 mg daily, cefepime 1 g every 8 hours, Lasix 40 mg daily, Neurontin 300 mg at bedtime, Protonix 40 mg a.c., Pyridium 100 mg, Seroquel 12.5 mg at bedtime, Spirolactone 25 mg daily and trazodone 50 mg at bedtime. LABORATORY DATA: Reviewed. WBC 6.0, RBC 3.5, hemoglobin 10.7, hematocrit 33.1 and platelets 139. Sodium 136, potassium 3.7, chloride 101, carbon dioxide 31, anion gap 8, BUN 17, creatinine 0.8, GFR greater than 60, random glucose 92, calcium 8.8, magnesium 2.1, total bilirubin 1.3, AST 25, ALT 17, alkaline phosphatase 82, total protein 6.5, albumin 3.4, globulin 3.1 and albumin-globulin ratio 1.1. IMPRESSION AND PLAN: Urinary tract infection, status post fall from home, history of severe restless leg syndrome, atrial fibrillation, hypertension, Alzheimer's type dementia, hypothyroidism, insomnia, being followed by Psychiatry. Continue antibiotic therapy per Infectious Disease. Currently on Pyridium for urinary discomfort. The patient is at risk for falls. Family at bedside. Discussed in-depth with family. The patient is high risk for falls and the patient's family verbalized understanding and need for the patient to be monitored for falls. This patient was seen and examined with Dr. Black. Discussed assessment and plan as described above. This patient was seen and examined with Nikolai Brunson, nurse practitioner. Discussed assessment and plan as described above. Thank you for this consult and we will follow with you. Nikolai Brunson APN Nabeel Black MD
--- NOTE | 2018-10-27 16:41 | CP.PCM.PN ---
Subjective - Date & Time of Evaluation Date of Evaluation: 10/27/18 Time of Evaluation: 11:45 - Subjective Subjective: No fevers, not in distress. Objective - Vital Signs/Intake and Output Vital Signs (last 24 hours): Temp Pulse Resp BP Pulse Ox 98.4 F 82 20 118/51 L 94 L 10/26/18 20:36 10/26/18 20:36 10/26/18 20:36 10/26/18 20:36 10/26/18 20:36 Intake and Output: 10/26/18 10/27/18 18:59 06:59 Intake Total 0 960 Balance 0 960 - Medications Medications: Current Medications Alprazolam (Xanax) 0.25 mg PO Q8 PRN; Protocol PRN Reason: Anxiety Stop: 11/01/18 14:01 Last Admin: 10/25/18 18:09 Dose: 0.25 mg Apixaban (Eliquis) 5 mg PO BID [facility]; Protocol Last Admin: 10/26/18 17:12 Dose: 5 mg Atorvastatin Calcium (Lipitor) 20 mg PO DIN [facility] Last Admin: 10/26/18 17:12 Dose: 20 mg Carvedilol (Coreg) 12.5 mg PO DAILY [facility] Last Admin: 10/26/18 10:57 Dose: 12.5 mg Furosemide (Lasix) 40 mg PO DAILY [facility] Last Admin: 10/26/18 10:58 Dose: 40 mg Gabapentin (Neurontin) 300 mg PO HS [facility] Last Admin: 10/26/18 21:53 Dose: 300 mg Cefepime HCl (Maxipime 1gm) 1 gm in 100 mls @ 100 mls/hr IVPB Q8 [facility]; Protocol Last Admin: 10/26/18 21:52 Dose: 100 mls/hr Pantoprazole Sodium (Protonix Ec Tab) 40 mg PO ACB [facility] Last Admin: 10/26/18 10:58 Dose: 40 mg Phenazopyridine HCl (Pyridium) 100 mg PO PC [facility] Stop: 10/28/18 10:01 Last Admin: 10/26/18 17:12 Dose: 100 mg Quetiapine Fumarate (Seroquel) 12.5 mg PO HS [facility]; Protocol Last Admin: 10/26/18 21:53 Dose: 12.5 mg Spironolactone (Aldactone) 25 mg PO DAILY [facility] Last Admin: 10/26/18 10:57 Dose: 25 mg Trazodone HCl (Desyrel) 50 mg PO HS [facility] Last Admin: 10/26/18 21:52 Dose: 50 mg - Labs Labs: 10/23/18 07:00 10/23/18 07:00 PT 23.5 SECONDS (9.4-12.5) H 10/22/18 13:05 INR 2.08 10/22/18 13:05 APTT 38.9 Seconds (26.9-38.3) H 10/22/18 13:05 - Constitutional Appears: Chronically Ill - Head Exam Head Exam: NORMAL INSPECTION - Respiratory Exam Respiratory Exam: Decreased Breath Sounds - Cardiovascular Exam Cardiovascular Exam: +S1, +S2 - GI/Abdominal Exam GI & Abdominal Exam: Soft. absent: Tenderness Assessment and Plan - Assessment and Plan (Free Text) Plan: Assessment consider UTI with Pseudomonas S/P fall on left sided without evidence of hip or pelvic fracture CAD S/P CABG history of TIA chronic CHF S/P pacemaker placement COPD history of CVA history of kidney stones hypothyroidism Plan continue Cefepime day 4 will continue to monitor clinically
[2018-10-27] MEDS: Cholecalciferol 1,000 INTLU TAB PO SCH (17:58)
--- NOTE | 2018-10-27 20:18 | PN ---
DATE: 10/27/2018 SUBJECTIVE: The patient is an 83-year-old male. The patient was seen and examined at the bedside on 10/27/2018. Looking comfortable. No fever. No chills. No hematuria or hematochezia. Little bit sleepy, arousable. is sitting on the bedside. Seen by the psychiatrist and social workers. PHYSICAL EXAMINATION: VITAL SIGNS: Temperature 98.3, pulse 65, blood pressure 125/61, respiratory rate 20, oxygen saturation 96%. HEENT: Head is normocephalic, atraumatic. Eyes, PERRLA. Extraocular muscles intact. Conjunctivae clear. Nose patent. Mucous membranes moist. NECK: Supple. No carotid bruit. No JVD or thyromegaly. CHEST: Bilaterally symmetrical. HEART: S1 and S2 positive. LUNGS: Clear to auscultation. ABDOMEN: Soft. Bowel sounds positive. No organomegaly. EXTREMITIES: No edema. No cyanosis. NEUROLOGIC: The patient is sleepy, arousable. Follows simple commands. MEDICATIONS: Aldactone, Coreg, trazodone, Eliquis, Lasix, Lipitor, Maxipime, gabapentin, Protonix, Pyridium, Seroquel, Xanax. LABORATORY DATA: White blood cells 6, hemoglobin 10.7, hematocrit 33.1, platelets 139. Sodium 136, potassium 3.7, BUN 17, creatinine 0.8. ASSESSMENT AND PLAN: Mr. Blade Escalona is an 83-year-old male with anemia, hyperglycemia, vitamin D deficiency. Has dementia. Seen by Dr. Alicea. According to her, the patient is delirious. Came with urinary tract infection. Status post fall at home. History of severe restless leg syndrome, atrial fibrillation, hypertension, history of bradycardia, hypothyroidism, insomnia. Seen by the sleep specialist also. Continue antibiotics as per Infectious Disease. We replaced vitamin D deficiency. The patient has a risk of fall. He is not able to do his activities of daily living. Getting physical therapy. Gastrointestinal and deep venous thrombosis prophylaxis. Repeat labs. We will follow up. Susie Ward MD [facility] # [id number]
[2018-10-28] MEDS: Cefepime 1gm in NS 100ml 1 GM/100 ML BAG IVPB SCH ×3 (05:01→22:12)
[2018-10-28] MEDS: Pantoprazole 40 mg EC Tab PO SCH (10:08)
[2018-10-28] MEDS: Cholecalciferol 1,000 INTLU TAB PO SCH (10:09)
--- NOTE | 2018-10-28 11:12 | PN ---
DATE: 10/28/2018 PULMONARY PROGRESS NOTE REFERRING PHYSICIAN: Dr. Susie Ward. SUBJECTIVE: The patient seen this morning, lying in bed, asleep, but easily arousable. Nursing staff reports that the patient slept well last night, was toileted during the night. Woke up this morning, ate breakfast and at this time is resting. No hemoptysis, hematemesis, hematuria, diarrhea, leg pain or leg swelling reported. OBJECTIVE: GENERAL: No acute distress. VITAL SIGNS: Blood pressure 114/51, pulse 68, temperature 97.4 and oxygen saturation 95% on room air. HEENT: Moist mucous membranes. Mallampati score of 4. NECK: Supple. No JVD. LUNGS: Fair airflow bilaterally. CARDIOVASCULAR: S1 and S2. ABDOMEN: Soft and nontender. No distention. No organomegaly. EXTREMITIES: No bilateral lower extremity edema. NEUROLOGIC: Awake, alert, and verbal. Follows commands. MEDICATIONS: Reviewed. Xanax 0.25 mg every 8 hours p.r.n., Eliquis 5 mg twice a day, Lipitor 20 mg at dinner, Coreg 12.5 mg daily, cefepime 1 g every 8 hours, vitamin D 2000 units daily, Lasix 40 mg daily, Neurontin 300 mg at bedtime, Protonix 40 mg in the morning, Seroquel 12.5 mg at bedtime, Aldactone 25 mg daily and trazodone 50 mg at bedtime. LABORATORY DATA: Reviewed. No new labs since yesterday. IMPRESSION AND PLAN: Urinary tract infection, status post fall at home, history of severe restless leg syndrome, atrial fibrillation, hypertension, Alzheimer's type dementia, hypothyroidism, and insomnia. Continue antibiotic therapy per Infectious Disease. The patient is being followed by Psychiatry. The patient is at high risk for falls. Fall precaution, needs monitoring for falls. This patient was seen and examined with Dr. Black. Discussed assessment and plan as described above. This patient was seen and examined with Nikolai Brunson, nurse practitioner. Discussed assessment and plan as described above. Thank you for this consult. We will follow with you. Nikolai Brunson APN Nabeel Black MD [facility] # [id number]
--- NOTE | 2018-10-28 11:38 | CP.PCM.PCO ---
Addendum Addendum: 10/28/18 11:33 Called patient's Mrs. Escalona and discussed risks, benefits, and alternatives regarding his medication seroquel. states she is in agreement with medication. She also states current plan for discharge is for patient to go home with her. Mrs. Escalona does not see fdc necessary at this point due to previous experience patient had an nursing homes however states she will start the process of fdc placement initiation at [facility] since the process is long and just in case patient may require it in the near future. of patient also states that when family is more involved patient is very happy and would appreciate if all children were more involved; in agreement with this and discussed with patient's how she should discuss this with the children of the patient since she notices great improvement in his mood when they are present. [place] PGY2 Discussed and reviewed with attending Dr. Alicea
--- NOTE | 2018-10-28 13:15 | CP.PCM.PCO ---
Physician Communication Note - Physician Communication Note Physician Communication Note: 2 more days of IV Cefepime as per ID
--- NOTE | 2018-10-28 15:52 | CP.PCM.PN ---
Subjective - Date & Time of Evaluation Date of Evaluation: 10/28/18 Time of Evaluation: 12:00 - Subjective Subjective: Comfortable in bed, no fevers, not in distress. Objective - Vital Signs/Intake and Output Vital Signs (last 24 hours): Temp Pulse Resp BP Pulse Ox 98.3 F 65 20 125/61 96 10/27/18 08:26 10/27/18 08:26 10/27/18 08:26 10/27/18 10:27 10/27/18 08:26 Intake and Output: 10/27/18 10/27/18 06:59 18:59 Intake Total 960 Balance 960 - Medications Medications: Current Medications Alprazolam (Xanax) 0.25 mg PO Q8 PRN; Protocol PRN Reason: Anxiety Stop: 11/01/18 14:01 Last Admin: 10/25/18 18:09 Dose: 0.25 mg Apixaban (Eliquis) 5 mg PO BID [facility]; Protocol Last Admin: 10/27/18 10:27 Dose: 5 mg Atorvastatin Calcium (Lipitor) 20 mg PO DIN [facility] Last Admin: 10/26/18 17:12 Dose: 20 mg Carvedilol (Coreg) 12.5 mg PO DAILY [facility] Last Admin: 10/27/18 10:27 Dose: 12.5 mg Cholecalciferol (Vitamin D) 2,000 intlu PO DAILY [facility] Furosemide (Lasix) 40 mg PO DAILY [facility] Last Admin: 10/27/18 10:27 Dose: 40 mg Gabapentin (Neurontin) 300 mg PO HS [facility] Last Admin: 10/26/18 21:53 Dose: 300 mg Cefepime HCl (Maxipime 1gm) 1 gm in 100 mls @ 100 mls/hr IVPB Q8 [facility]; Protocol Last Admin: 10/27/18 13:22 Dose: 100 mls/hr Pantoprazole Sodium (Protonix Ec Tab) 40 mg PO ACB [facility] Last Admin: 10/27/18 10:27 Dose: 40 mg Phenazopyridine HCl (Pyridium) 100 mg PO PC [facility] Stop: 10/28/18 10:01 Last Admin: 10/27/18 13:22 Dose: 100 mg Quetiapine Fumarate (Seroquel) 12.5 mg PO HS [facility]; Protocol Last Admin: 10/27/18 15:58 Dose: 12.5 mg Spironolactone (Aldactone) 25 mg PO DAILY [facility] Last Admin: 10/27/18 10:27 Dose: 25 mg Trazodone HCl (Desyrel) 50 mg PO [facility] Last Admin: 10/26/18 21:52 Dose: 50 mg - Labs Labs: 10/27/18 12:00 10/27/18 12:00 PT 23.5 SECONDS (9.4-12.5) H 10/22/18 13:05 INR 2.08 10/22/18 13:05 APTT 38.9 Seconds (26.9-38.3) H 10/22/18 13:05 - Constitutional Appears: Chronically Ill - Head Exam Head Exam: NORMAL INSPECTION - Respiratory Exam Respiratory Exam: Decreased Breath Sounds - Cardiovascular Exam Cardiovascular Exam: +S1, +S2 - GI/Abdominal Exam GI & Abdominal Exam: Soft. absent: Tenderness Assessment and Plan - Assessment and Plan (Free Text) Plan: Assessment consider UTI with Pseudomonas S/P fall on left sided without evidence of hip or pelvic fracture CAD S/P CABG history of TIA chronic CHF S/P pacemaker placement COPD history of CVA history of kidney stones hypothyroidism Plan continue Cefepime day 5 for up to 7 days will continue to monitor clinically
--- NOTE | 2018-10-28 19:43 | PN ---
DATE: 10/28/2018 SUBJECTIVE: The patient was seen and examined today. The patient presented to be sleepy. The patient is very hard of hearing, now also the patient has a history of dementia. No meaningful conversation is possible. As per staff report, after Seroquel was switched to at 4 p.m. the patient presented much better. Before, the patient started to escalate and medication was given to him. Besides that, the patient does not have any aggression and does not have any agitation, no acute issues going on. As per this aligner typewriter's request, diagnostic medical sonographer called the patient's and discussed treatment options and educated family about Seroquel risks, benefits and alternatives. The patient's family and especially his was in agreement with that medication. PHYSICAL EXAMINATION VITAL SIGNS: Vital signs are stable. Temperature 97.4, pulse 68, blood pressure 114/51, respiration 19, oxygen saturation is 95%. LABORATORY DATA: Labs reviewed. Coagulation reviewed. Urinalysis reviewed. MEDICATIONS: Medications reviewed. The patient is on Xanax 0.25 mg every 8 hours as needed, Colace, Lipitor, Coreg, Maxipime, vitamin D, Lasix, Neurontin, Protonix, Seroquel 12.5 mg at 4 p.m., and trazodone 50 mg. MENTAL STATUS EXAM: The patient was deeply sleeping, was able to open his eyes, but falling back asleep. IMPRESSION: Most likely the patient was in delirium stage which is improving. The patient also has dementia. The patient also found to have urinary tract infection with Pseudomonas. PLAN Seroquel at 4 p.m., 12.5 mg. Discussed with the family. The patient was seen by Infectious Disease as well as Home Health Nurse and primary care team. So far, there are no acute the psychiatric issues. The patient posed no imminent danger to self or others. This aligner typewriter will sign off. Should you have any questions give me a call back. Arlin Alicea MD
--- NOTE | 2018-10-29 01:28 | PN ---
DATE: 10/28/2018 SUBJECTIVE: The patient is an 83-year-old male. The patient was seen and examined at the bedside on 10/28/2018. Looking comfortable. No fever. No chills. No hematuria. No hematochezia. No headache. No dizziness. No chest pain. No palpitation. PHYSICAL EXAMINATION: VITAL SIGNS: Temperature 98.3, pulse 65, respiratory rate 20, blood pressure 120/60, pulse oximetry 96%. HEENT: Head is normocephalic and atraumatic. Eyes PERRLA. Extraocular muscles intact. Conjunctivae clear. Nose patent. Mucous membrane moist. NECK: Supple. No carotid bruit. No JVD or thyromegaly. CHEST: Bilaterally symmetrical. HEART: S1 and S2 positive. LUNGS: Clear to auscultation. ABDOMEN: Soft. Bowel sounds present. No organomegaly. EXTREMITIES: No edema. No cyanosis. NEUROLOGICAL: The patient is awake, alert. Moving all four extremities. No focal deficits. MEDICATIONS: Eliquis, Lipitor, Coreg, vitamin D, Lasix, Neurontin, Protonix, Pyridium, Seroquel, Aldactone, and trazodone. LABORATORY DATA: White blood cells 6, hemoglobin 10.7, hematocrit 33.1, platelets 139. Sodium 139, potassium 3.7, BUN 17, creatinine 0.8, and glucose 92. ASSESSMENT AND PLAN: Mr. Pola Murguia is an 83-year-old male with anemia. Has urinary tract infection with Pseudomonas, status post fall on left sided without evidence of hip or pelvic fracture, coronary artery disease, status post coronary artery bypass graft, history of transient ischemic attack, chronic congestive heart failure, status post pacemaker placement, chronic obstructive pulmonary disease, history of cardiovascular accident, history of kidney stones, hypothyroidism, and advanced dementia. Plan is to continue cefepime for five to seven days. Continue present treatment. Discussion done with his and social media content manager. Gastrointestinal and deep venous thrombosis prophylaxis. Repeat labs. We will follow up. Susie Ward MD
[2018-10-29] MEDS: Cefepime 1gm in NS 100ml 1 GM/100 ML BAG IVPB SCH ×3 (05:07→21:38)
[2018-10-29] MEDS: Pantoprazole 40 mg EC Tab PO SCH (08:26)
[2018-10-29] MEDS: Cholecalciferol 1,000 INTLU TAB PO SCH (09:37)
[2018-10-29] MEDS ORDERED: Albuterol-Ipratrop 3 mg / 0.5 (3 ml) UD IH PRN (14:10)
--- NOTE | 2018-10-29 15:01 | CP.PCM.PN ---
Subjective - Date & Time of Evaluation Date of Evaluation: 10/29/18 Time of Evaluation: 11:20 - Subjective Subjective: Comfortable in bed, no fevers. Objective - Vital Signs/Intake and Output Vital Signs (last 24 hours): Temp Pulse Resp BP Pulse Ox 98.7 F 68 17 81/47 L 93 L 10/29/18 06:00 10/29/18 06:00 10/29/18 06:00 10/29/18 09:36 10/29/18 06:00 Intake and Output: 10/29/18 10/29/18 06:59 18:59 Intake Total 1640 Output Total 950 Balance 690 - Medications Medications: Current Medications Albuterol/Ipratropium (Duoneb 3 Mg/0.5 Mg (3 Ml) Ud) 3 ml IH [id number] PRN PRN Reason: Shortness of Breath Alprazolam (Xanax) 0.25 mg PO Q8 PRN; Protocol PRN Reason: Anxiety Stop: 11/01/18 14:01 Last Admin: 10/25/18 18:09 Dose: 0.25 mg Apixaban (Eliquis) 5 mg PO BID [facility]; Protocol Last Admin: 10/29/18 09:36 Dose: 5 mg Atorvastatin Calcium (Lipitor) 20 mg PO DIN [facility] Last Admin: 10/28/18 17:31 Dose: 20 mg Carvedilol (Coreg) 12.5 mg PO DAILY [facility] Last Admin: 10/28/18 10:09 Dose: 12.5 mg Cholecalciferol (Vitamin D) 2,000 intlu PO DAILY [facility] Last Admin: 10/29/18 09:37 Dose: 2,000 intlu Furosemide (Lasix) 40 mg PO DAILY [facility] Last Admin: 10/29/18 09:36 Dose: 40 mg Gabapentin (Neurontin) 300 mg PO HS [facility] Last Admin: 10/28/18 22:13 Dose: 300 mg Cefepime HCl (Maxipime 1gm) 1 gm in 100 mls @ 100 mls/hr IVPB Q8 [facility]; Protocol Last Admin: 10/29/18 05:07 Dose: 100 mls/hr Pantoprazole Sodium (Protonix Ec Tab) 40 mg PO ACB [facility] Last Admin: 10/29/18 08:26 Dose: 40 mg Quetiapine Fumarate (Seroquel) 12.5 mg PO 1600 [facility]; Protocol Spironolactone (Aldactone) 25 mg PO DAILY [facility] Last Admin: 10/29/18 09:35 Dose: 25 mg Trazodone HCl (Desyrel) 50 mg PO [facility] Last Admin: 10/28/18 22:12 Dose: 50 mg - Labs Labs: 10/27/18 12:00 10/27/18 12:00 PT 23.5 SECONDS (9.4-12.5) H 10/22/18 13:05 INR 2.08 10/22/18 13:05 APTT 38.9 Seconds (26.9-38.3) H 10/22/18 13:05 - Constitutional Appears: Chronically Ill - Head Exam Head Exam: NORMAL INSPECTION - Respiratory Exam Respiratory Exam: Decreased Breath Sounds - Cardiovascular Exam Cardiovascular Exam: +S1, +S2 - GI/Abdominal Exam GI & Abdominal Exam: Soft. absent: Tenderness Assessment and Plan - Assessment and Plan (Free Text) Plan: Assessment consider UTI with Pseudomonas S/P fall on left sided without evidence of hip or pelvic fracture CAD S/P CABG history of TIA chronic CHF S/P pacemaker placement COPD history of CVA history of kidney stones hypothyroidism Plan continue Cefepime day 6 for up to 7 days will continue to monitor clinically
--- NOTE | 2018-10-29 16:41 | PN ---
DATE: 10/29/2018 PULMONARY PROGRESS NOTE REFERRING PHYSICIAN: Susie Ward MD SUBJECTIVE: The patient is seen sitting in armchair in room. at bedside. No acute distress. No overnight events reported. The patient slept well last night. No headache, rhinitis, cough, shortness of breath, chest pain, abdominal pain, nausea, vomiting, diarrhea, leg pain, leg swelling reported. OBJECTIVE GENERAL: No acute distress. VITAL SIGNS: Blood pressure 81/47, pulse 68, temperature 98.7, oxygen saturation 93% on room air. HEENT: Moist mucous membranes. Mallampati score of 4. NECK: Supple. No JVD. LUNGS: Fair airflow bilaterally. CARDIOVASCULAR: S1 and S2. ABDOMEN: Soft, nontender. No distension. No organomegaly. EXTREMITIES: No bilateral lower extremity edema. NEUROLOGIC: Awake, alert, verbal, follows commands. LABORATORY DATA: Reviewed. MEDICATIONS: Reviewed. Xanax 0.25 mg every 8 hours p.r.n., Eliquis 5 mg twice a day, Lipitor 20 mg at dinner, Coreg 12.5 mg daily, cefepime 1 g every 8 hours, vitamin D 2000 units daily, Lasix 40 mg daily, gabapentin 300 mg at bedtime, Protonix 40 mg in the morning, Seroquel 12.5 mg daily, spironolactone 25 mg daily, trazodone 50 mg at bedtime. IMPRESSION AND PLAN: Urinary tract infection status post fall at home, history of severe restless leg syndrome, atrial fibrillation, hypertension, Alzheimer's type dementia, hypothyroidism, insomnia, anemia, coronary artery disease status post coronary artery bypass graft, chronic congestive heart failure, chronic obstructive pulmonary disease, and history of cerebrovascular accident. Continue antibiotic therapy per Infectious Disease, gastric prophylaxis. The patient currently on anticoagulation therapy, fall precaution. at bedside, all questions answered. The patient is at high risk for fall, fall precautions. Psychiatry followup. May need to decrease sedation if the patient becomes increasingly sleepy or lethargic. The patient was seen and examined with Dr. Black. Discussed assessment and plan as described above. The patient was seen and examined with Nikolai Brunson, nurse practitioner. Discussed assessment and plan as described above. Thank you for this consult. We will follow with you. Nikolai Brunson APN Nabeel Black MD [facility] # [id number]
--- NOTE | 2018-10-30 02:30 | PN ---
DATE: 10/29/2018 SUBJECTIVE: The patient is an 83-year-old male. The patient was seen and examined at the bedside on 10/29/2018. Sitting on the chair, looking comfortable, awake, alert. was sitting on the bedside also. No fever. No chills. No hematuria or hematochezia. No headache or dizziness. No chest pain. No palpitation. PHYSICAL EXAMINATION: VITAL SIGNS: Temperature 98.7, pulse 58, respiratory rate 17, blood pressure 80/47, pulse oximetry 93. HEENT: Head is normocephalic and atraumatic. Eyes; PERRLA. Extraocular muscles intact. Conjunctivae clear. Nose patent. Mucous membranes moist. NECK: Supple. No carotid bruit. No JVD or thyromegaly. CHEST: Bilaterally symmetrical. HEART: S1 and S2 positive. LUNGS: Clear to auscultation. ABDOMEN: Soft. Bowel sounds present. No organomegaly. EXTREMITIES: No edema. No cyanosis. NEUROLOGIC: The patient is awake and alert. Moving all four extremities. No focal deficits. MEDICATIONS: Xanax, Eliquis, Lipitor, Coreg, vitamin D, Lasix, Neurontin, Maxipime, Protonix, Seroquel, spirolactone, trazodone. LABORATORY DATA: White blood cell 6, hemoglobin 10.7, hematocrit 33.1, platelet 139. Sodium 133, potassium 3.7, BUN 70, creatinine 0.8, glucose is 92. ASSESSMENT AND PLAN: Mr. Blade Escalona is an 83-year-old male with anemia, urinary tract infection with pseudomonas, status post fall on left side without evidence of hip or pelvic fracture, advanced dementia, coronary artery disease, status post coronary artery bypass grafting , history of transient ischemic attack, chronic congestive heart failure, status post pacemaker placement, chronic obstructive pulmonary disease, history of cerebrovascular accident , history of kidney stones, hypothyroidism. The patient is getting cefepime, today is day 6 of the 7 days. We will continue monitoring. Seen by Dr. Noel Em, Infectious Disease, and onshore diver; has sleep problem, severe restless leg syndrome, atrial fibrillation, hypertension, insomnia, hypothyroidism, coronary artery disease, history of coronary artery bypass, fall precautions. Psychiatrist is on the case. Gastrointestinal and deep venous thrombosis prophylaxes. Repeat labs. We will follow up. Susie Ward MD
[2018-10-30] MEDS: Cefepime 1gm in NS 100ml 1 GM/100 ML BAG IVPB SCH ×2 (05:16→14:24)
[2018-10-30] MEDS: Pantoprazole 40 mg EC Tab PO SCH (07:50)
[2018-10-30 08:47] VITALS: PULSE 61; RESP 18; TEMP 97.3; O2SAT 96
[2018-10-30] MEDS: Cholecalciferol 1,000 INTLU TAB PO SCH (10:43)
[2018-10-30 10:51] VITALS: BP 112/60
--- NOTE | 2018-10-30 11:59 | PN ---
DATE: 10/30/2018 PULMONARY PROGRESS NOTE REFERRING PHYSICIAN: Susie Ward MD. SUBJECTIVE: The patient is seen, lying in bed, asleep, easily arousable. No acute distress. No overnight events reported. No hemoptysis, hematemesis, hematuria, diarrhea and leg swelling reported. OBJECTIVE GENERAL: No acute distress. VITAL SIGNS: Blood pressure 112/49, pulse 61, temperature 97.3, and oxygen saturation 96% on room air. HEENT: Moist mucous membranes. Mallampati score of 4. NECK: Supple. No JVD. LUNGS: Fair airflow bilaterally. CARDIOVASCULAR: S1 and S2. ABDOMEN: Soft and nontender. No distension. No organomegaly. EXTREMITIES: No bilateral lower extremity edema. NEUROLOGIC: Awake, alert and verbal. Follows commands. MEDICATIONS: Reviewed. DuoNeb 3 mL inhalation every 4 hours p.r.n., Xanax 0.25 mg every 8 hours p.r.n., Eliquis 5 mg twice a day, Lipitor 20 mg at dinner, Coreg 12.5 mg daily, cefepime 1 g every 8 hours, vitamin D 2000 units daily, Lasix 40 mg daily, Neurontin 300 mg at bedtime, Protonix 40 mg in the morning, Seroquel 12.5 mg daily, Aldactone 25 mg daily, and trazodone 50 mg at bedtime. LABORATORY DATA: Reviewed. No new labs. IMPRESSION AND PLAN: Urinary tract infection, the patient is status post fall at home, history of severe restless leg syndrome, atrial fibrillation, hypertension, Alzheimer's type dementia, hypothyroidism, insomnia, anemia, coronary artery disease status post coronary artery bypass graft, congestive heart failure, chronic obstructive pulmonary disease, and history of cerebrovascular accident. Continue antibiotics per Infectious Disease. Gastric prophylaxis. The patient currently on anticoagulation therapy. The patient is at high risk for falls and needs to be monitored closely. Family is aware that the patient is high fall risk and that the patient needs 24-hour care and close monitoring. This patient was seen and examined with Dr. Black. Discussed assessment and plan as described above. This patient was seen and examined with Nikolai Brunson, nurse practitioner. Discussed assessment and plan as described above. Thank you for this consult and we will follow with you. Nikolai Brunson APN Nabeel Black MD [facility] # [id number]
--- NOTE | 2018-10-30 14:46 | CP.PCM.PN ---
Subjective - Date & Time of Evaluation Date of Evaluation: 10/30/18 Time of Evaluation: 10:45 - Subjective Subjective: Comfortable, afebrile, not in distress. Objective - Vital Signs/Intake and Output Vital Signs (last 24 hours): Temp Pulse Resp BP Pulse Ox 98.7 F 64 17 124/60 93 L 10/29/18 06:00 10/29/18 14:52 10/29/18 06:00 10/29/18 14:52 10/29/18 06:00 Intake and Output: 10/29/18 10/29/18 06:59 18:59 Intake Total 1640 Output Total 950 Balance 690 - Medications Medications: Current Medications Albuterol/Ipratropium (Duoneb 3 Mg/0.5 Mg (3 Ml) Ud) 3 ml IH [id number] PRN PRN Reason: Shortness of Breath Alprazolam (Xanax) 0.25 mg PO Q8 PRN; Protocol PRN Reason: Anxiety Stop: 11/01/18 14:01 Last Admin: 10/25/18 18:09 Dose: 0.25 mg Apixaban (Eliquis) 5 mg PO BID [facility]; Protocol Last Admin: 10/29/18 09:36 Dose: 5 mg Atorvastatin Calcium (Lipitor) 20 mg PO DIN [facility] Last Admin: 10/28/18 17:31 Dose: 20 mg Carvedilol (Coreg) 12.5 mg PO DAILY [facility] Last Admin: 10/29/18 14:52 Dose: 12.5 mg Cholecalciferol (Vitamin D) 2,000 intlu PO DAILY [facility] Last Admin: 10/29/18 09:37 Dose: 2,000 intlu Furosemide (Lasix) 40 mg PO DAILY [facility] Last Admin: 10/29/18 09:36 Dose: 40 mg Gabapentin (Neurontin) 300 mg PO HS [facility] Last Admin: 10/28/18 22:13 Dose: 300 mg Cefepime HCl (Maxipime 1gm) 1 gm in 100 mls @ 100 mls/hr IVPB Q8 [facility]; Protocol Last Admin: 10/29/18 14:52 Dose: 100 mls/hr Pantoprazole Sodium (Protonix Ec Tab) 40 mg PO ACB [facility] Last Admin: 10/29/18 08:26 Dose: 40 mg Quetiapine Fumarate (Seroquel) 12.5 mg PO 1600 [facility]; Protocol Spironolactone (Aldactone) 25 mg PO DAILY [facility] Last Admin: 10/29/18 09:35 Dose: 25 mg Trazodone HCl (Desyrel) 50 mg PO [facility] Last Admin: 10/28/18 22:12 Dose: 50 mg - Labs Labs: 10/27/18 12:00 10/27/18 12:00 PT 23.5 SECONDS (9.4-12.5) H 10/22/18 13:05 INR 2.08 10/22/18 13:05 APTT 38.9 Seconds (26.9-38.3) H 10/22/18 13:05 - Constitutional Appears: Chronically Ill - Head Exam Head Exam: NORMAL INSPECTION - Respiratory Exam Respiratory Exam: Decreased Breath Sounds - Cardiovascular Exam Cardiovascular Exam: +S1, +S2 - GI/Abdominal Exam GI & Abdominal Exam: Soft. absent: Tenderness Assessment and Plan - Assessment and Plan (Free Text) Plan: Assessment consider UTI with Pseudomonas S/P fall on left sided without evidence of hip or pelvic fracture CAD S/P CABG history of TIA chronic CHF S/P pacemaker placement COPD history of CVA history of kidney stones hypothyroidism Plan on Cefepime day 7 for up to 7 days
== END 2018-10-30 17:25 | disposition home or self-care (01) | DRG 690 ==
LOC: ED 12:18 → ERH 16:27 → 3RSO 17:57
PROVIDERS: ADMIT Internal Medicine; ATTEND Internal Medicine
DX: N39.0 Urinary tract infection, site not specified (principal); I42.9 Cardiomyopathy, unspecified; F05 Delirium due to known physiological condition; S30.0XXA Contusion of lower back and pelvis, initial encounter; G30.9 Alzheimer's disease, unspecified; F02.80 Dementia in other diseases classified elsewhere, unspecified severity, without behavioral disturbance, psychotic disturbance, mood disturbance, and anxiety; I11.0 Hypertensive heart disease with heart failure; I50.9 Heart failure, unspecified; I48.91 Unspecified atrial fibrillation; J44.9 Chronic obstructive pulmonary disease, unspecified; N40.0 Benign prostatic hyperplasia without lower urinary tract symptoms; I25.10 Atherosclerotic heart disease of native coronary artery without angina pectoris; E03.9 Hypothyroidism, unspecified; G62.9 Polyneuropathy, unspecified; G25.81 Restless legs syndrome; D64.9 Anemia, unspecified; B96.5 Pseudomonas (aeruginosa) (mallei) (pseudomallei) as the cause of diseases classified elsewhere; M47.812 Spondylosis without myelopathy or radiculopathy, cervical region; G47.33 Obstructive sleep apnea (adult) (pediatric); J32.4 Chronic pansinusitis; E55.9 Vitamin D deficiency, unspecified; F32.9 Major depressive disorder, single episode, unspecified; R29.6 Repeated falls; W19.XXXA Unspecified fall, initial encounter; G47.00 Insomnia, unspecified; Z91.19 Patient's noncompliance with other medical treatment and regimen; Z95.0 Presence of cardiac pacemaker; Z79.01 Long term (current) use of anticoagulants; Z86.73 Personal history of transient ischemic attack (TIA), and cerebral infarction without residual deficits; Z95.5 Presence of coronary angioplasty implant and graft; Z95.1 Presence of aortocoronary bypass graft; Z87.442 Personal history of urinary calculi

== ENCOUNTER 2018-11-27 06:47 | Inpatient (IN) | payer MEDICARE, MEDICAID ==
[2018-11-27 06:53] VITALS: BMI 19.1
--- NOTE | 2018-11-27 07:27 | ED PDOC ---
Arrival/HPI - General Chief Complaint: Altered Mental Status Time Seen by Provider: 11/27/18 07:13 Historian: Patient, Spouse EM Caveat: Altered Mental Status - History of Present Illness Narrative History of Present Illness (Text): 11/27/18 07:26 83 year old male, whose past medical history includes TIA, Alzheimer's, CHF, CABG, and pacemaker on Eliquis, presents to the ED accompanied by spouse for med ical evaluation. reports patient has been displaying aggressive behavior since last night. Patient's also notes that patient has frequent hallucinations and delusions, and occasional aggressive behavior secondary to patient's past medical history. As per , patient was recently screened at [facility] and is in the process of being placed at a retirement. At bedside, patient reasons his visit to "check if I am crazy" and does not verbalize any complaints. ROS limited secondary to patient's clinical presentation. Time/Duration: 1-3 hours Activities at Onset: Light Context: Home Past Medical History - Provider Review Nursing Documentation Reviewed: Yes - Infectious Disease Hx of Infectious Diseases: None - Tetanus Immunization Tetanus Immunization: Unknown - Cardiac Hx Cardiac Disorders: Yes (CAD, CABGx 4, cardiac stents) Hx Congestive Heart Failure: Yes Other/Comment: quad bypass. 7stents. 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) Other/Comment: wears eyeglasses - Renal Hx Renal Failure: Yes - Endocrine/Metabolic Hx Hypothyroidism: Yes - Hematological/Oncological Hx Blood Disorders: Yes Hx Anemia: Yes Hx Shingles: Yes - Integumentary Hx Dermatological Disorder: Yes Other/Comment: ecchymosis and hematoma L buttock/hip area - Musculoskeletal/Rheumatological Hx Musculoskeletal Disorders: Yes Hx Falls: Yes - Gastrointestinal Hx Gastrointestinal Disorders: Yes (gi bleed) Hx Pancreatitis: Yes - Genitourinary/Gynecological Hx Genitourinary Disorders: Yes Hx Prostate Problems: Yes (BPH PHIMOSIS) Hx Urinary Tract Infection: Yes - Psychiatric Hx Psychophysiologic Disorder: Yes (INSOMNIA) Hx Substance Use: No - Surgical History Hx Cardiac Catheterization: Yes Hx Coronary Stent: Yes (x 7 stents) Hx Open Heart Surgery: Yes Hx Orthopedic Surgery: Yes - Anesthesia Hx Anesthesia: Yes Hx Anesthesia Reactions: No Hx Malignant Hyperthermia: No - Suicidal Assessment Feels Threatened In Home Enviroment: No Family/Social History - Physician Review Nursing Documentation Reviewed: Yes Family/Social History: Unknown Family HX Smoking Status: Unknown If Ever Smoked Hx Alcohol Use: Yes (social) Hx Substance Use: No Allergies/Home Meds Allergies/Adverse Reactions: Allergies pregabalin [From Lyrica] Adverse Reaction (Verified 05/13/18 07:38) aggitated zolpidem [From Ambien] Adverse Reaction (Verified 05/12/18 07:39) Sensitivity Sensitivity - has opposite effect than intended. Home Medications: Home Meds Medication Instructions Recorded Confirmed Furosemide [Lasix] 40 mg PO DAILY 03/29/14 11/27/18 Aldactone 25 mg PO DAILY 10/22/18 11/27/18 Atorvastatin [Lipitor] 20 mg PO DAILY 10/22/18 11/27/18 Carvedilol [Coreg] 12.5 mg PO DAILY 10/22/18 11/27/18 Melatonin 1 tab PO HS 11/27/18 11/27/18 Multivitamin [Daily Rosario] 1 tab PO DAILY 11/27/18 11/27/18 Review of Systems - Review of Systems Systems not reviewed;Unavailable: Altered Mental Status Psychiatric: Other (Aggressive behavior at home) Physical Exam - Physical Exam Narrative Physical Exam (Text): 11/27/18 07:26 Gen: VS reviewed, alert, well developed, well nourished, nontoxic, mild distress ENT: normal pharynx Eye: EOMI, PERRL Neck: no JVD, supple, no adenopathy CV: regular rate, regular rhythm, no rubs, no murmur, no gallops, S1, S2, pulses, equal and strong Pulm: no distress, clear to auscultation, no wheeze, no rhonchi, breath sounds equal, no rales Abd: soft, nontender, no guarding, no rebound, no rigidity, normal bowel sounds Ext: no edema Skin: good color, no rash, no cyanosis Psych: Limited secondary to dementia and uncooperative behavior Neuro: oriented x 3, CN2-12 intact grossly, motor intact, sensation intact Vital Signs Reviewed: Yes Temperature: Afebrile Blood Pressure: Normal Pulse: Regular Respiratory Rate: Normal Appearance: Positive for: Well-Appearing, Non-Toxic, Comfortable Pain Distress: Mild Mental Status: Positive for: other (Alert) Medical Decision Making ED Course and Treatment: 11/27/18 07:26 Impression: 83 year old male who presents to the ED for altered mental status. Plan: -- EKG -- Labs -- Urine Culture -- Urinalysis -- IV Fluids -- Urinary Straight Catheter -- Reassess and disposition Prior Visits: Notes and results from previous visits were reviewed. Patient was last seen in the emergency department on 11/17/18. Progress Notes: 11/27/18 09:[address] [email or web address], patient to be admitted for altered mentation, consistent with hallucinations and sundowning, aggressive behavior at home towards . patient cannot care for self at home. - EKG Interpretation EKG Interpretation (Text): 11/27/18 07:19 NSR @ 85 bpm, non specific intraventricular conduction delay, lateral flipped t waves, unchanged from prior EKG performed on 05/15/18. Interpreted by ED Physician: Yes Type: 12 lead EKG - Scribe Statement The provider has reviewed the documentation as recorded by the Scribe Holland [email or web address] with [facility]. All medical record entries made by the Scribe were at my direction and personally dictated by me. I have reviewed the chart and agree that the record accurately reflects my personal performance of the history, physical exam, medical decision making, and the department course for this patient. I have also personally directed, reviewed, and agree with the discharge instructions and disposition. Disposition/Present on Arrival - Present on Arrival Any Indicators Present on Arrival: No History of DVT/PE: No History of Uncontrolled Diabetes: No Urinary Catheter: No History of Decub. Ulcer: No History Surgical Site Infection Following: None - Disposition Have Diagnosis and Disposition been Completed?: Yes Diagnosis: Altered mental state, Aggressive behavior Disposition: HOSPITALIZED Disposition Time: 09:46 Patient Plan: Admission Patient Problems: Current Active Problems Problem Status Onset Altered mental status Acute Aggressive behavior Acute Condition: STABLE
[2018-11-27 08:52] LABS: ALB/GLOB RATIO 1.1 (1.1-1.8); ALBUMIN 4.1 g/dL (3.0-4.8); ALT/SGPT 13 U/L (7-56); AST/SGOT 28 U/L (17-59); BASO # 0.05 K/mm3 (0.0-2.0); BASO % 0.7 % (0.0-3.0); BLOOD UREA NITROGEN 27 mg/dL (7-21); CALCIUM 9.8 mg/dL (8.4-10.5); EOS # 0.8 (0.0-0.7); EOS % 10.8 % (1.5-5.0); GFR NON-AFRICAN AMERICAN > 60; LIPASE 151 U/L (23-300); LYMPH # 1.7 (1.2-3.4); MEAN CELL VOLUME 94.6 fl (80.0-105.0); MEAN CORPUSCULAR HEMOGLOBIN 30.7 pg (25.0-35.0); MEAN CORPUSCULAR HGB CONC 32.4 g/dl (31.0-37.0); MEAN PLATELET VOLUME 9.3 fl (7.0-11.0); MONO # 0.5 (0.1-0.6); MONO % 7.2 % (1.0-6.0); RBC 3.91 10^6/uL (3.5-6.1); WHITE BLOOD COUNT 7.2 10^3/uL (4.5-11.0)
[2018-11-27 09:09] LABS: URINE BILIRUBIN NEGATIVE (NEGATIVE); URINE BLOOD TRACE-LYSED (NEGATIVE); URINE GLUCOSE (UA) NEGATIVE (NEGATIVE); URINE LEUKOCYTE ESTERASE NEGATIVE Leu/uL (NEGATIVE); URINE PROTEIN NEGATIVE mg/dL (<30 mg/dL); URINE UROBILINOGEN 0.2 E.U./dL (<1 E.U./dL)
[2018-11-27 09:12] LABS: URINE APPEARANCE CLEAR (CLEAR); URINE COLOR YELLOW (YELLOW)
[2018-11-27 09:48] LABS: URINE AMORPHOUS SEDIMENT FEW /hpf; URINE BACTERIA FEW /hpf; URINE WBC 0 - 2 /hpf (0-6)
--- NOTE | 2018-11-27 16:22 | CARD ---
APPROVED REPORT Date of service: 11/27/2018 EKG Measurement Heart [id number] 188P [id number] <Conclusion> Sinus rhythm with occasional premature ventricular complexes ST & Marked T wave abnormality, correlate Clinically. Unsteady Baseline.
[2018-11-27] MEDS: MELATONIN PO SCH (21:40)
--- NOTE | 2018-11-27 22:16 | CP.PCM.PN ---
Subjective - Date & Time of Evaluation Date of Evaluation: 11/27/18 Time of Evaluation: 22:13 - Subjective Subjective: Patient was seen at bedside. It was requested to co-sign order of 1:1 sitter. As per nurse of patient, he has been very agressive. When I asked him a question if he was having any symptoms, complaints, he started to ask me repeatedly if I had any complaints. Medical record was reviewed. 83 year old male was admitted with agressive behaviour, hallucinations, delusion. Has PMH of: COPD. CAD S/P CABG. CHF. Anemia. History of PPM. Atrial fibrillation. History of TIA. Right ear deafness history. History of renal stones. BPH. Phimosis. Decreased peripheral vision. History of restless leg syndrome. Objective - Vital Signs/Intake and Output Vital Signs (last 24 hours): Temp Pulse Resp BP Pulse Ox 97.7 F 89 20 154/64 H 97 11/27/18 06:50 11/27/18 17:01 11/27/18 14:22 11/27/18 17:01 11/27/18 11:53 - Medications Medications: Current Medications Alprazolam (Xanax) 0.25 mg PO Q8 PRN; Protocol PRN Reason: Anxiety Stop: 12/04/18 14:11 Last Admin: 11/27/18 21:32 Dose: 0.25 mg Apixaban (Eliquis) 5 mg PO BID [facility]; Protocol Last Admin: 11/27/18 17:02 Dose: 5 mg Atorvastatin Calcium (Lipitor) 20 mg PO DIN [facility] Carvedilol (Coreg) 12.5 mg PO DAILY [facility] Last Admin: 11/27/18 17:01 Dose: 12.5 mg Furosemide (Lasix) 40 mg PO DAILY [facility] Gabapentin (Neurontin) 300 mg PO HS [facility]; Protocol Last Admin: 11/27/18 21:32 Dose: 300 mg Multivitamins (Thera Tab) 1 tab PO DAILY [facility] Non-Formulary Medication (Melatonin [Melatonin]) 1 tab PO HS [facility] Last Admin: 11/27/18 21:40 Dose: Not Given Quetiapine Fumarate (Seroquel) 12.5 mg PO 1600 [facility]; Protocol Last Admin: 11/27/18 17:02 Dose: 12.5 mg Spironolactone (Aldactone) 25 mg PO DAILY [facility] Trazodone HCl (Desyrel) 50 mg PO HS [facility] Last Admin: 11/27/18 21:33 Dose: 50 mg - Labs Labs: 11/27/18 08:18 11/27/18 08:18 - Constitutional Appears: Well, No Acute Distress - Head Exam Head Exam: ATRAUMATIC, NORMAL INSPECTION, NORMOCEPHALIC - Eye Exam Eye Exam: Normal appearance - ENT Exam ENT Exam: Normal External Ear Exam - Neck Exam Neck Exam: Normal Inspection - Respiratory Exam Respiratory Exam: NORMAL BREATHING PATTERN - Cardiovascular Exam Cardiovascular Exam: absent: JVD - GI/Abdominal Exam GI & Abdominal Exam: absent: Distended - Rectal Exam Rectal Exam: Deferred - Exam Additional comments: Deferred. - Extremities Exam Extremities Exam: Normal Inspection - Back Exam Back Exam: NORMAL INSPECTION - Neurological Exam Neurological Exam: Altered - Psychiatric Exam Psychiatric exam: Agitated - Skin Skin Exam: Normal Color Assessment and Plan - Assessment and Plan (Free Text) Assessment: Agressiveness. COPD. CAD S/P CABG. CHF. Anemia. History of PPM. Atrial fibrillation. History of TIA. Right ear deafness history. History of renal stones. BPH. Phimosis. Decreased peripheral vision. History of restless leg syndrome. Plan: 1:1 Sitter. Continue present management.
[2018-11-28 06:48] LABS: MEAN CELL VOLUME 95.3 fl (80.0-105.0); MEAN CORPUSCULAR HEMOGLOBIN 30.7 pg (25.0-35.0); MEAN CORPUSCULAR HGB CONC 32.3 g/dl (31.0-37.0); MEAN PLATELET VOLUME 9.5 fl (7.0-11.0); RBC 3.58 10^6/uL (3.5-6.1); WHITE BLOOD COUNT 5.8 10^3/uL (4.5-11.0)
[2018-11-28 07:13] LABS: IRON 86 ug/dL (45-180)
[2018-11-28 07:15] LABS: HDL CHOLESTEROL 42 mg/dL (29-60)
[2018-11-28 07:22] LABS: % IRON SATURATION 29 % (20-55); TOTAL IRON BINDING CAPACITY 298 ug/dL (261-462)
[2018-11-28 07:23] LABS: BLOOD UREA NITROGEN 22 mg/dL (7-21); CALCIUM 9.1 mg/dL (8.4-10.5); GFR NON-AFRICAN AMERICAN > 60
[2018-11-28 07:26] LABS: LDL CHOLESTEROL 39 mg/dL (0-129)
--- NOTE | 2018-11-28 08:07 | HP ---
DATE OF EXAM: 11/27/2018 The patient was seen and examined at the bedside, 11/27/2018. CHIEF COMPLAINT: Altered mental status. HISTORY OF PRESENT ILLNESS: Mr. Blade Escalona is an 83-year-old male with past medical history of TIA, dementia, congestive heart failure, CABG, pacemaker, on Eliquis, came to emergency department by the spouse. The patient is having really bad sundowning, sometime with the aggressive behavior especially since last night, has frequent hallucinations and delusions and occasionally aggressive behavior secondary to past medical history. The patient was recently at [facility] and is in the process being placed. The patient's mental status are changes constantly. When I saw the patient, he was little bit confused. No fever. No chills. No hematuria. No hematochezia. No headache. No dizziness. No chest pain. No palpitation. PAST MEDICAL HISTORY: Coronary artery disease, CABG x4, cardiac stents, COPD, dementia, renal failure, hypothyroidism, anemia, shingles, hematuria, insomnia, coronary stents x7, open heart failure, and orthopedic. FAMILY HISTORY: Father and mother, noncontributory. HABITS: No smoking. No drugs. No ethanol. ALLERGIES: THE PATIENT IS ALLERGIC TO LYRICA AND AMBIEN. HOME MEDICATIONS: Lasix, Aldactone, Lipitor, Coreg, and melatonin. REVIEW OF SYSTEMS: The patient is seen and examined at the bedside, looking comfortable. No fever. No chills. No hematuria. No hematochezia. No headache. No dizziness. No chest pain. No palpitation. The patient is a very poor historian. PHYSICAL EXAMINATION: VITAL SIGNS: Temperature 97.7, pulse 89, blood pressure 154/64, respiratory rate 20, and pulse oximetry 97%. HEENT: Head; normocephalic and atraumatic. Eyes; PERRLA. Extraocular muscles intact. Conjunctivae clear. Nose patent. NECK: Supple. No carotid bruits, JVD, or thyromegaly. CHEST: Bilaterally symmetrical. HEART: S1 and S2 positive. LUNGS: Clear to auscultation. ABDOMEN: Soft. Bowel sounds present. No organomegaly. EXTREMITIES: No edema. No cyanosis. NEUROLOGICAL: The patient is awake, alert, and follows simple commands. LABORATORY DATA: White blood cell noted , hemoglobin 12, hematocrit 37, and platelets 136. Sodium 133, potassium 4, BUN 27, and creatinine 1. AST 28 and ALT 13. ASSESSMENT AND PLAN: Mr. Blade Escalona is an 83-year-old male with anemia, hypochloremia, increased BUN, trace blood in the urine, rule out urinary tract infection, history of multiple medical problems, came with altered mental status, very anxious, history of chronic obstructive pulmonary disease, coronary artery disease, status post coronary artery bypass graft, congestive heart failure, anemia, atrial fibrillation, history of transient ischemic attack, right ear deafness, history of renal stones, benign prostatic hyperplasia, phimosis, decreased peripheral vision, history of restless legs syndrome, came with altered mental status, is on one-to-one, we will call psychiatric medications because the patient is having bad sundowning and getting very confused. Discussion done with the patient's . Repeats labs. We will follow up. Susie Ward MD [email or web address]
[2018-11-28] MEDS: Multivitamin Therapeutic Tab PO SCH (10:53)
--- NOTE | 2018-11-28 12:18 | CT ---
Date of service: 11/28/2018 PROCEDURE: CT HEAD WITHOUT CONTRAST. HISTORY: ams COMPARISON: Noncontrast head CT performed 10/22/18 TECHNIQUE: Axial computed tomography images were obtained through the head/brain without intravenous contrast. Radiation dose: Total exam DLP = 1063.88 mGy-cm. This CT exam was performed using one or more of the following dose reduction techniques: Automated exposure control, adjustment of the mA and/or kV according to patient size, and/or use of iterative reconstruction technique. FINDINGS: HEMORRHAGE: No intracranial hemorrhage. BRAIN: Diffuse atrophy with prominence of the ventricles and sulci noted. No mass effect or edema. Intracranial atherosclerosis. Right occipital lobe encephalomalacia re-identified. Moderate scattered periventricular and subcortical white matter hypodensities, which are nonspecific, but often seen with chronic microvascular ischemic disease. Please note that MRI with diffusion imaging is more sensitive in the detection of acute ischemic event. VENTRICLES: No hydrocephalus. CALVARIUM: Unremarkable. PARANASAL SINUSES: Extensive opacification of all included paranasal sinuses with evidence of high-density sinus contents throughout. MASTOID AIR CELLS: Unremarkable as visualized. No inflammatory changes. OTHER FINDINGS: None. IMPRESSION: Right occipital encephalomalacia. Moderate nonspecific white matter changes. Increased attenuation of the included paranasal sinus contents may indicate proteinaceous material or fungal colonization.
[2018-11-28 13:31] LABS: FOLATE > 20.0 ng/mL
[2018-11-28] MEDS: Amoxicillin-Clav 500-125 mg Tab PO SCH ×2 (19:09→21:30)
--- NOTE | 2018-11-28 19:36 | CON ---
DATE: 11/28/2018 HISTORY OF PRESENT ILLNESS: The patient is an 83-year-old male with dementia diagnosed three years ago, known prior formal psychiatric history including psychiatric admissions or suicide attempts, currently the patient of mine at [facility] who was evaluated for first time on 11/17/2018 for symptoms of hallucinations, disorganization related to his diagnosis of dementia, who is admitted to the medical floor because of worsening aggression, hallucinations, and lability, mostly towards evening. The patient is being treated with Seroquel 12.5 mg at bedtime, trazodone 50 mg at bedtime, and Xanax 0.25 mg every 8 hours p.r.n. He is compliant with these medications, though still mental status and behaviors are worsening. I to see the patient at bedside today; however, he is quite paranoid, irritable, and does not remember me at all from our prior encounter earlier this month. He is unwilling to engage in an interview despite my reassurance and introduction. He is disoriented. He does not know where he is, what month it is or what year it is and appears quite labile and unpredictable with poor insight and judgment. PAST PSYCHIATRIC HISTORY: As noted no psychiatric admissions. No suicide attempts. The patient was seen by this provider at [facility] on 11/17/2018 and continued on trazodone 50 at bedtime, Seroquel 12.5 mg at 07:30 p.m. as well as Xanax 0.25 mg every 8 hours p.r.n. for anxiety. The patient was also seen by Dr. Alicea as a client development consultant in 05/2018 for similar presentation and initially given Seroquel at bedtime and Klonopin was switched to Xanax at that time. SOCIAL HISTORY: The patient was born and raised in [place]. He is times 19 years. He has five children. The patient resides with his 63-year-old and caregiver, Shari Escalona [phone]. 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 The patient does not have any drug or alcohol issues. The patient has a home health aide home 6 days a week. is currently trying to get a home health aide to come in evening 4 p.m. to 8 p.m. when she has no difficulty with him. Labs and vitals were reviewed. IMPRESSION: Dementia with psychosis and behavioral disturbance, rule out contribution of delirium as medical note indicate that his mental status are changing constantly. RECOMMENDATIONS: We will continue with Xanax and trazodone; however, we will also increase Seroquel to 12.5 mg at 4 p.m. and 25 mg at bedtime and monitor progress on the unit. Next followup will be on 11/29/2018. Casey Rosario MD
--- NOTE | 2018-11-28 21:29 | CP.PCM.PN ---
Subjective - Date & Time of Evaluation Date of Evaluation: 11/28/18 Time of Evaluation: 21:28 - Subjective Subjective: Patient was seen at bedside as it was requested to continue 1:1 sitter. Patient becomes agitated intermittently. He is calm now. Medical record was reviewed. 83 year old male was admitted with agressive behaviour, hallucinations, delusi on. Has PMH of: COPD. CAD CHF. Anemia. Atrial fibrillation. History of TIA. History of renal stones. BPH. Phimosis. Decreased peripheral vision. History of restless leg syndrome. Right ear deafness history. History of PPM. S/P CABG. Objective - Vital Signs/Intake and Output Vital Signs (last 24 hours): Temp Pulse Resp BP Pulse Ox 97.7 F 69 20 125/64 97 11/27/18 06:50 11/28/18 10:54 11/28/18 06:00 11/28/18 10:54 11/28/18 06:00 Intake and Output: 11/28/18 11/29/18 18:59 06:59 Intake Total 1120 Balance 1120 - Medications Medications: Current Medications Alprazolam (Xanax) 0.25 mg PO Q8 PRN; Protocol PRN Reason: Anxiety Stop: 12/04/18 14:11 Last Admin: 11/27/18 21:32 Dose: 0.25 mg Amoxicillin/Clavulanate Potassium (Augmentin 500 Mg-125 Mg Tab) 1 tab PO Q8 [facility]; Protocol Last Admin: 11/28/18 19:09 Dose: 1 tab Apixaban (Eliquis) 5 mg PO BID [facility]; Protocol Last Admin: 11/28/18 16:59 Dose: 5 mg Atorvastatin Calcium (Lipitor) 20 mg PO DIN [facility] Last Admin: 11/28/18 16:59 Dose: 20 mg Carvedilol (Coreg) 12.5 mg PO DAILY [facility] Last Admin: 11/28/18 10:54 Dose: 12.5 mg Furosemide (Lasix) 40 mg PO DAILY [facility] Last Admin: 11/28/18 10:52 Dose: 40 mg Gabapentin (Neurontin) 300 mg PO HS [facility]; Protocol Last Admin: 11/27/18 21:32 Dose: 300 mg Multivitamins (Thera Tab) 1 tab PO DAILY [facility] Last Admin: 11/28/18 10:53 Dose: 1 tab Non-Formulary Medication (Melatonin [Melatonin]) 1 tab PO HS [facility] Last Admin: 11/27/18 21:40 Dose: Not Given Quetiapine Fumarate (Seroquel) 12.5 mg PO 1600 [facility]; Protocol Last Admin: 11/28/18 16:58 Dose: 12.5 mg Quetiapine Fumarate (Seroquel) 25 mg PO HS [facility]; Protocol Spironolactone (Aldactone) 25 mg PO DAILY [facility] Last Admin: 11/28/18 10:53 Dose: 25 mg Trazodone HCl (Desyrel) 50 mg PO HS [facility] Last Admin: 11/27/18 21:33 Dose: 50 mg - Labs Labs: 11/28/18 06:25 11/28/18 06:25
[2018-11-28] MEDS: MELATONIN PO SCH (21:45)
--- NOTE | 2018-11-29 01:34 | PN ---
DATE: 11/28/2018 SUBJECTIVE: The patient is an 83-year-old male. The patient was seen and examined on the bedside on 11/28/2018. There is no big change. Status is still on one-to-one. No fever. No chills. No hematuria or hematochezia. No headache or dizziness. No chest pain. No palpitation. The patient is very poor historian. PHYSICAL EXAMINATION: VITAL SIGNS: The patient is afebrile. Pulse 69, blood pressure 125/64, respiratory rate 20, oxygen saturation 97%. HEENT: Head: Normocephalic and atraumatic. Eyes: PERRLA. Extraocular muscles intact. Conjunctivae clear. Nose patent. Mucous membrane moist. NECK: Supple. No carotid bruit, JVD or thyromegaly. CHEST: Bilaterally symmetrical. HEART: S1 and S2 positive. LUNGS: Clear to auscultation. ABDOMEN: Soft. Bowel sounds present. No organomegaly. EXTREMITIES: No edema. No cyanosis. NEUROLOGICAL: The patient is awake, alert. Moving all four extremities. No focal deficits. MEDICATIONS: Aldactone, Augmentin, Coreg, trazodone, Eliquis, Lasix, Lipitor, melatonin, Neurontin, Seroquel, multivitamin, Xanax. LABORATORY DATA: White blood cells 5.8, hemoglobin 11, hematocrit 34.1, platelets 133. Sodium 137, potassium 3.8, BUN 22, creatinine 0.8, glucose 88, cholesterol 95. ASSESSMENT AND PLAN: Mr. Blade Escalona is an 83-year-old male with anemia, increased BUN, hematuria, came with altered mental status, has sundowning. CAT scan of the head done shows right occipital encephalomalacia, moderate nonspecific white matter changes, increased attenuation of the occluded paranasal sinus, contents may indicate the proteinaceous material or fungal colonization. We will call otolaryngology consult. Actually, I have discussion done with Dr. Casey Rosario and Dr. Arlin Alicea. The patient has dementia with a psychosis and behavioral disturbance, rule out contribution of delirium as medical note indicated that his mental status are changing constantly. According to Psychiatry, continue Xanax, trazodone and we will increase Seroquel to 12.5 mg at 4 p.m. and 25 mg at bedtime. The patient has history of coronary artery disease, coronary artery bypass grafting x4, cardiac stenting, chronic obstructive pulmonary disease, dementia, renal failure, hypothyroidism, anemia, shingles, hematuria, insomnia, open heart surgery. Discussion done and repeat labs, and we will follow up. Susie Ward MD
[2018-11-29] MEDS: Amoxicillin-Clav 500-125 mg Tab PO SCH ×3 (06:40→21:57)
[2018-11-29] MEDS: Multivitamin Therapeutic Tab PO SCH (09:51)
--- NOTE | 2018-11-29 15:08 | CON ---
DATE OF CONSULTATION: 11/29/2018 HISTORY OF PRESENT ILLNESS: The patient is an 83-year-old male with dementia diagnosed 3 years ago. No known prior formal psychiatric history including no prior psychiatric admissions or suicide attempts. Currently, following up with this provider at [facility] and evaluated for the first time approximately 2 weeks ago for symptoms of hallucinations, disorganization related to dementia. The patient was recently admitted to the medical floor because of worsening aggression, hallucinations, and lability mostly towards the evening. This has been increasingly difficult for his who also acts as desk officer to manage the patient's lability, impulsiveness and psychosis. Psychiatrist has been following up with the patient on the medical floor and has been adjusting medications to help with his behaviors and Seroquel was recently increased to 12.5 mg at 4 p.m. and 25 mg h.s. with trazodone 50 mg h.s. and Xanax 0.25 mg p.r.n. The patient has been compliant with his medications, though it is too early to tell their effectiveness as they were just implemented less than 24 hours ago. Still has periods of confusion, forgetfulness, every direction on the unit thus far. Notably paranoid and irritable yesterday. However, we will continue to evaluate for these symptoms throughout the day. Insight and judgement continue to be poor and will not . IMPRESSION: Dementia with psychosis and behavioral disturbance. RECOMMENDATIONS: We will continue Xanax and trazodone current doses. We will continue Seroquel 12.5 mg at 4 p.m. and 25 mg h.s. and monitor progress on the unit. The patient can be transferred to the psychiatric unit as he signs involuntarily and this might be accomplished by having his at his side as he appears to be calmer when his is around. If Shari, his , is the patient's power of county attorney/guardian, then Shari can sign for him to be psychiatrically stabilized on the psychiatric unit now that he is medically cleared. Regardless, Psychiatry will continue to follow up with him. Casey Rosario MD [facility] # [id number]
--- NOTE | 2018-11-29 18:12 | CON ---
DATE OF CONSULTATION: 11/29/2018 PULMONARY CONSULTATION REFERRING PHYSICIAN: Dr. Ward. REASON FOR CONSULTATION: Chronic lung disease, restless legs syndrome, dementia. HISTORY OF PRESENT ILLNESS: This is an 83-year-old gentleman, well known to me from office and previous admission with dementia, coronary artery disease, history of coronary bypass surgery, cardiac arrhythmia requiring pacemaker on anticoagulation, history of renal insufficiency, hypothyroid, history of shingles in the past, restless legs syndrome, had been on sedatives for severe insomnia, brought in because of altered mental status, not feeling well. No hemoptysis, emesis, hematuria, or diarrhea reported. PAST MEDICAL HISTORY: As per history of present illness. ALLERGIES: TO LYRICA AND AMBIEN. SOCIAL HISTORY: Presently nonsmoker, nondrinker. FAMILY HISTORY: No significant cardiopulmonary disease reported. MEDICATIONS: He is on Aldactone 25 mg daily, getting Augmentin 500 1 tablet every 8 hours, Coreg 12.5 mg daily, trazodone 50 mg at bedtime, Eliquis 5 mg twice a day, Lasix 40 mg daily, Lipitor 20 mg daily, also getting melatonin 1 tablet at bedtime, Neurontin 300 mg at bedtime, Seroquel 12.5 mg at bedtime, not daily, but 25 mg at bedtime, multivitamins daily, also getting Xanax 0.25 mg every 8 hours p.r.n. REVIEW OF SYSTEMS: Agitated at times. Denied any headache or rhinitis. No chest pain. No nausea, vomiting, diarrhea, leg pain, or leg swelling. PHYSICAL EXAMINATION: GENERAL: No acute distress, under one-to-one supervision. VITAL SIGNS: Temperature is 98, heart rate 82, respiratory rate is 20, blood pressure 122/69, pulse ox 94% on room air. HEENT: Moist mucous membrane. . NECK: Supple. No JVD. LUNGS: Have fair airflow with rhonchi. HEART: S1 and S2. ABDOMEN: Soft, nontender. No organomegaly. EXTREMITIES: No edema. NEUROLOGICAL: Awake, alert, and follows simple commands, but confused. LABORATORY DATA: Shows hemoglobin 11, hematocrit 34.1, WBC 5.8, platelet is 133. Sodium 137, potassium 3.8, chloride 101, bicarbonate 29, BUN 22, creatinine 0.8, glucose 88, calcium 9.1. TSH 0.65. Cholesterol is 95. B12 is 459. Folate is more than 20. Microbiology, urine culture, there is no growth. Has a CT scan of the head done from ER, shows right occipital encephalomalacia, moderate, no specified matter changes, increased attenuation with including paranasal sinus, content may indicate proteinaceous material or fungal colonization. IMPRESSION AND PLAN: Dementia with behavior disorder, restless legs syndrome, atrial fibrillation, hypertension, hypothyroid, insomnia, anemia, coronary artery disease, history of coronary bypass surgery, also has a cardiac pacemaker, agitated at times, presently under one-to-one supervision. From pulmonary point of view, keep head at 45 degrees, continue bronchodilator, gastric prophylaxis, on anticoagulation, fall precaution, being followed by Psychiatry. We will add Flonase once to each nostril twice a day. We will send nasal swab for cultures. Thank you and we will follow with you. Nabeel Black MD
--- NOTE | 2018-11-30 00:39 | PN ---
DATE: 11/29/2018 SUBJECTIVE: The patient is an 83-year-old male. The patient was seen and examined at bedside on 11/29/2018, looking comfortable. No fever. No chills. No hematuria. No hematochezia. No headache. No dizziness. No chest pain. No palpitations. Mental status is getting a little bit better, sometimes he is getting agitation, still on one-to-one. Denies headache or arthritis. PHYSICAL EXAMINATION: VITAL SIGNS: Temperature 98, heart rate 80, respiratory rate 20, blood pressure 120/70, and pulse oximetry 94%. HEENT: Head is normocephalic and atraumatic. Eyes: PERRLA. Extraocular muscles intact. Conjunctivae clear. Nose patent. Mucous membrane moist. NECK: Supple. No carotid bruits. No thyromegaly. CHEST: Bilaterally symmetrical. HEART: S1 and S2, positive. LUNGS: Clear to auscultation. ABDOMEN: Soft. Bowel sounds present. No organomegaly. EXTREMITIES: No edema. No cyanosis. NEUROLOGIC: The patient is awake and alert. Moving all four extremities. No focal deficits. LABORATORY DATA: Hemoglobin 11, hematocrit 34.1, white blood cells 5.8, and platelets 153. Sodium 137, BUN 22, creatinine 0.8, and TSH 0.65. MEDICATIONS: Aldactone, Augmentin, Coreg, trazodone, Eliquis, Lasix, melatonin, Neurontin, Seroquel, and Xanax. ASSESSMENT AND PLAN: Mr. Blade Escalona is an 83-year-old male with advanced dementia with behavior disorder, restless leg syndrome, atrial fibrillation, hypertension, insomnia, hypothyroidism, anemia, coronary artery disease, history of coronary artery bypass, history of cardiac pacemaker, history of advanced sundowning, still under one-to-one. Psychiatry is on the case. Gastrointestinal and deep vein thrombosis prophylaxis. Dr. Black added Flonase. Seen by Dr. Moore. I reviewed CAT scan of the head. Reviewed Dr. Black's notes and Dr. Rosario's notes. We will follow up. Susie Ward MD [facility] # [id number]
[2018-11-30] MEDS: Amoxicillin-Clav 500-125 mg Tab PO SCH (06:11)
[2018-11-30] MEDS: MELATONIN PO SCH ×2 (06:18→20:00)
[2018-11-30] MEDS: Multivitamin Therapeutic Tab PO SCH (09:09)
[2018-11-30] MEDS: cefTRIAXone 2 GM IN NS 2 GM/100 ML BAG IVPB SCH (11:56)
[2018-11-30] MEDS: Vancomycin 1gm in NS 250ml 1 GM/250 ML BAG IVPB SCH (11:56)
--- NOTE | 2018-11-30 14:40 | RAD ---
Date of service: 11/30/2018 HISTORY: r/o infiltrate COMPARISON: 10/22/2018 TECHNIQUE: Chest PA and lateral views FINDINGS: LUNGS: Chronic interstitial changes are seen PLEURA: No significant pleural effusion identified. No pneumothorax apparent. CARDIOVASCULAR: No aortic atherosclerotic calcification present. Mild cardiomegaly no pulmonary vascular congestion. OSSEOUS STRUCTURES: Sternal wires. Single lead pacemaker VISUALIZED UPPER ABDOMEN: Normal. OTHER FINDINGS: None. IMPRESSION: No active disease.
[2018-11-30 16:51] LABS: URINE BILIRUBIN NEGATIVE (NEGATIVE); URINE BLOOD NEGATIVE (NEGATIVE); URINE GLUCOSE (UA) NEGATIVE (NEGATIVE); URINE LEUKOCYTE ESTERASE SMALL Leu/uL (NEGATIVE); URINE PROTEIN NEGATIVE mg/dL (<30 mg/dL)
[2018-11-30 16:53] LABS: URINE APPEARANCE SL CLOUDY (CLEAR); URINE COLOR YELLOW (YELLOW)
[2018-11-30 17:12] LABS: URINE RBC 0 - 2 /hpf (0-2)
[2018-11-30] MEDS ORDERED: Hydrocerin(120 gm) TOP PRN ×2 (17:56→18:01)
--- NOTE | 2018-11-30 21:22 | PN ---
DATE: 11/30/2018 PULMONARY PROGRESS NOTE REFERRING PHYSICIAN: Susie Ward MD SUBJECTIVE: The patient is sitting in the chair. is in the room. Night was unremarkable. Slept well. At a time, confused. No headache, no rhinitis. No nausea, vomiting, diarrhea, leg pain or leg swelling. OBJECTIVE: GENERAL: No acute distress. VITAL SIGNS: Temperature is 98, heart rate is 60, respiratory rate is 20, blood pressure 135/72, pulse ox 97% on room air. HEENT: Moist mucous membranes. No ulcer or thrush noted. NECK: Supple. No JVD. LUNGS: Have fair airflow with rhonchi. HEART: S1 and S2. ABDOMEN: Soft, nontender. No organomegaly. EXTREMITIES: No edema. NEUROLOGIC: Awake and follows simple command but confused at a time. MEDICATIONS: He is on Aldactone 25 mg daily, Coreg 12.5 mg daily, trazodone 50 mg at bedtime, Eliquis 5 mg twice a day, Lasix 40 mg daily, Lipitor 20 mg daily, also getting melatonin one tab at bedtime, gabapentin 300 mg at bedtime, nasal saline every 3 hours, Rocephin 2 g IV daily, Seroquel 12.5 mg in the morning and 25 mg at bedtime, multivitamins daily, vancomycin 1 g IV every 12 hours, Xanax 0.25 mg every 8 hours p.r.n. LABORATORY DATA: Reviewed. Sed rate is 31. C-reactive protein 6.7. TSH 0.65. Urinalysis shows rbc 2 to 5, wbc 0 to 5. MICROBIOLOGY: One out of two blood cultures has gram-positive cocci in chains. DIAGNOSTIC DATA: Chest x-ray done this morning shows no infiltrate or effusion, shows mild cardiomegaly though. IMPRESSION AND PLAN: Dementia with behavioral disorder. Family unable to take care of him. Restless legs syndrome, atrial fibrillation, hypertension, hypothyroidism, insomnia, anemia, coronary artery disease, history of coronary artery bypass surgery in the remote past, has a cardiac pacemaker, agitated at a time requiring Xanax. Has one out of two blood cultures positive for Streptococcus B. Clinically, I think, it may be contaminated. We will leave antibiotic decision as per Dr. Quarles. Fall precautions. Spoke to at bedside. All the questions answered. Thank you and we will follow with you. Nabeel Black MD [facility] # [id number]
--- NOTE | 2018-11-30 21:44 | CON ---
DATE: 11/30/2018 HISTORY OF PRESENT ILLNESS: The patient is an 83-year-old male with dementia, diagnosed approximately 3 years ago. No known prior formal psychiatric history including no prior psych admissions or suicide attempts who is being followed up by this provider at [facility] where he was evaluated for the first time approximately 2 weeks ago for symptoms of hallucinations, disorganization related to dementia. The patient was recently admitted to the medical floor because of worsening depression, hallucinations, and lability mostly towards the evening. This has been increasingly difficult for his who acts as continuous improvement intern to manage the patient's lability, impulsiveness and psychosis. The patient is currently awaiting placements at this time. Psychiatrist has been following up with the patient, Seroquel has been titrated and his behaviors has shown some improvement on the unit, though he still has periods of combativeness, they appear to be much less frequent, lability is also little bit more improving. He is sleeping little bit better as well. Nonetheless, his thought process is still confused. He remains forgetful and dementia is obviously not , there does appear to be some progress. Insight and judgment continue to be poor. IMPRESSION: Dementia with psychosis and behavioral disturbance. Rule out contribution of delirium at this time as blood cultures came back positive recently. RECOMMENDATIONS: We will continue with current medications at current doses. Psychiatry will continue to followup. Monitor the patient's behavior on the unit, try to optimize his treatment in this regard. The patient would be transferred to Psychiatric Unit if he signs in on the voluntary basis and this might be accomplished by having his at his side as he is generally calmer, more coherent and oriented when his is around. However, his , Shari is actually patient's power of trademark attorney/guardian, then Shari can sign for him to be psychiatrically stabilized on the voluntary Psychiatric Unit. Casey Rosario MD
--- NOTE | 2018-11-30 23:14 | CON ---
DATE: 11/30/2018 LOCATION: The patient seen in room 372, bed 1. CHIEF COMPLAINT: Positive blood cultures, x1 day duration. Gram-positive cocci in chains. 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 Pacemaker was placed in 05/2018 and was admitted now with the diagnosis of change of mental status. Patient at this time is not his baseline according to nursing staff. He knows his name, but he does not know where he is or what year it is and he is not behaving himself. There is definite change in mental status. There has been no fevers documented in the hospital, no chills. No chest pain, shortness of breath. It is unclear whether there is headaches or not. He is unable to communicate and give accurate information. REVIEW OF SYSTEMS: A 12-point review of systems is preformed based on nursing staff and in the chart. PAST MEDICAL HISTORY: Significant for coronary artery disease, congestive heart failure, peripheral vascular disease, open heart surgery, cardiac stent, hyperlipidemia, hypertension, hypothyroidism, pancreatitis, renal disease, kidney stones, deafness and questionable dementia. PAST SURGICAL HISTORY: For pacemaker placement in 05/2018 and coronary artery bypass graft. ALLERGIES: THE PATIENT IS ALLERGIC TO PREGABALIN AND ZOLPIDEM. MEDICATIONS AT HOME: Include the patient to be on vitamin, Xanax, Lasix, carvedilol, Lipitor, trazodone, Seroquel, gabapentin and Eliquis. PHYSICAL EXAMINATION: GENERAL: Patient is in bed, in no acute distress. Appears chronically ill, debilitated; however, confused. VITAL SIGNS: Temperature of 97, blood pressure of 121/70, respiratory rate of 18, and heart rate of 60. HEENT: Unremarkable. NECK: Supple. LUNGS: Decreased breath sounds. HEART: Normal S1 and S2. ABDOMEN: Soft and nontender. No organomegaly. No rebound or guarding. No masses. LABORATORY DATA: Revealed a white count of 7.2, hemoglobin of 12, and platelets of 136. BUN of 27 and creatinine of 1.0. Cholesterol is noted. Urinalysis is unremarkable. Blood cultures, one bottle is positive for gram positive cocci in chains and further identification sensitivity is noted. The other blood culture is negative and the urine culture is negative. Patient had a CAT scan of the head, which is reviewed and no chest x-rays done. ASSESSMENT AND PLAN: This is an 83-year-old male with; 1. Gram positive cocci bacteremia, with change of mental status. 2. Meningitis, less likely although still a possibility and must rule out endocarditis and infected pacemaker also a possibility. We will start the patient on vanco, ceftriaxone, ask Dr. Marsh, Neurology consultation and we will repeat blood cultures x2. Order an echo to rule out endocarditis and we will order a Sed rate, C-reactive protein and chest x-ray PA and lateral to rule out pneumonia and we will make further recommendations upon availability of identification and sensitivity of the gram positive cocci. We will follow with you. Case discussed with Dr. Ward. Stefan Quarles MD
[2018-12-01] MEDS: Vancomycin 1gm in NS 250ml 1 GM/250 ML BAG IVPB SCH ×2 (00:56→12:13)
--- NOTE | 2018-12-01 14:11 | CP.PCM.PCO ---
Physician Communication Note - Physician Communication Note Physician Communication Note: pt has vascular dementia with behavioral disturbance.namenda and c/seroquel
[2018-12-01 14:30] LABS: HEMOGLOBIN 11.2 g/dL (14.0-18.0); MEAN CELL VOLUME 96.4 fl (80.0-105.0); MEAN CORPUSCULAR HEMOGLOBIN 30.9 pg (25.0-35.0); RBC 3.63 10^6/uL (3.5-6.1); RED CELL DISTRIBUTION WIDTH 14.9 % (11.5-14.5); WHITE BLOOD COUNT 5.9 10^3/uL (4.5-11.0)
--- NOTE | 2018-12-01 14:35 | PN ---
DATE: 12/01/2018 PULMONARY PROGRESS NOTE REFERRING PHYSICIAN: Susie Ward MD. SUBJECTIVE: The patient is seen sitting in armchair. is at bedside. No acute distress. Nursing staff reports the patient slept last night. No headache, rhinitis, chest pain, abdominal pain, nausea, vomiting, diarrhea, leg pain or leg swelling reported. OBJECTIVE: GENERAL: No acute distress. VITAL SIGNS: Blood pressure 121/72, pulse 60, temperature 97.8, oxygen saturation 97% on room air. HEENT: Moist mucous membranes. NECK: Supple. No JVD. LUNGS: Fair airflow bilaterally. CARDIOVASCULAR: S1, S2. ABDOMEN: Soft, nontender. No distension. No organomegaly. EXTREMITIES: No bilateral lower extremity edema. NEUROLOGIC: Awake, alert, verbal. Following commands. Continues with periods of confusion. MEDICATIONS: Reviewed. Xanax 0.25 mg every 8 hours p.r.n., Eliquis 5 mg twice a day, Lipitor 20 mg at dinner, Coreg 12.5 mg daily, Rocephin 2 g daily, Lasix 40 mg daily, Neurontin 300 mg at bedtime, Hydrosone cream topically every 6 hours p.r.n to affected area, multivitamin daily, melatonin 1 tab at bedtime, Seroquel 12.5 mg daily, Seroquel 25 mg at bedtime, [place] nasal spray every 3 hours, Aldactone 25 mg daily, trazodone 50 mg at bedtime, vancomycin 1 g every 12 hours. LABORATORY DATA: Reviewed. Urine culture final no growth. Blood cultures preliminary no growth after 24 hours. Nose culture preliminary Gram-negative rods. Chest x-ray shows no active disease. IMPRESSION AND PLAN: Dementia with behavioral disorder, restless legs syndrome, atrial fibrillation, hypertension, hypothyroidism, insomnia, anemia, coronary artery disease, history of coronary artery bypass graft in the past, cardiac pacemaker. The patient with no cough, no sputum production. Current blood culture preliminary after 24 hours is negative. Continue antibiotics per Infectious Disease. Preliminary nasal culture showing Gram-negative rods. We will await final report. Continue fall precautions. Case discussed with at bedside. All questions answered. This patient was seen and examined with Dr. Black. Discussed assessment and plan as described above. This patient was seen and examined by Nikolai Brunson, nurse practitioner. Discussed assessment and plan as described above. Thank you for this consult. We will follow with you. Nikolai Brunson APN Nabeel Black MD
[2018-12-01 14:39] LABS: BLOOD UREA NITROGEN 18 mg/dL (7-21); CALCIUM 8.8 mg/dL (8.4-10.5); GFR NON-AFRICAN AMERICAN > 60
--- NOTE | 2018-12-01 17:06 | CP.PCM.PCO ---
Additional Comments - Additional Comments Additional Comments: Pt. seen, not agitated, pleasantly confused, 1:1 Dcd per psych Pending repeat blood cultures, echo pending to eval for vegetation, Antibiotics per I.D. SW/CM for placement.
--- NOTE | 2018-12-01 18:33 | CARD ---
APPROVED REPORT Date of service: 12/01/2018 EXAM: Two-dimensional and M-mode echocardiogram with Doppler and color Doppler. INDICATION Infection:Rule out subacute bacterial endocarditis 2D DIMENSIONS Left Atrium (2D)4.5 (1.6-4.0cm)IVSd1.2 (0.7-1.1cm) LVDd4.7 (3.9-5.9cm)PWd1.4 (0.7-1.1cm) LVDs3.3 (2.5-4.0cm)FS (%) 29.7 % LVEF (%)56.6 (>50%) M-Mode DIMENSIONS Aortic Root4.10 (2.2-3.7cm)Aortic Cusp Exc.1.10 (1.5-2.0cm) Aortic Valve AoV Peak Clponsks045.0cm/sAoV VTI37.5cmAO Peak GR.13mmHg LVOT Peak Ghkvyicu53.7cm/sLVOT VTI18.60cmAO Mean GR.7mmHg AI P 1/2 Ibxb733wm Mitral Valve MV E Ffgwhsdj899.0cm/sMV A Fezarqle53.4cm/sMV JIJ67lh E/A ratio1.6MVA (PHT)2.97cm2 TDI Lateral E' Peak V10.60cm/sE/Lateral E'12.3E/Medial E'0.0 Pulmonary Valve PV Peak Hbtfusky86.5cm/sPV Peak Grad.1mmHg Tricuspid Valve TR Peak Mrwpnxiq804ad/sRAP [id number] Peak Gr.47mmHg [id number] LEFT VENTRICLE The left ventricle is normal size. There is normal left ventricular wall thickness. Left ventricle ejection fraction is borderline. Apical motion consistent with pacemaker activation. Transmitral Doppler flow pattern is Grade II-pseudonormal filling dynamics. No left ventricle thrombus noted on this study. RIGHT VENTRICLE The right ventricle is normal size. There is normal right ventricular wall thickness. The right ventricular systolic function is normal. ATRIA The left atrium is mildly dilated. The right atrium is mildly dilated. AORTIC VALVE The aortic valve is severely thickened. There is moderate to severe aortic regurgitation. Cannot exclude aortic valvular vegetation. MITRAL VALVE The mitral valve is calcified and displays decreased opening. Mitral regurgitation is mild to moderate. TRICUSPID VALVE There is moderate to severe tricuspid regurgitation. There is moderate to severe pulmonary hypertension. PULMONIC VALVE There is mild pulmonic valvular regurgitation. GREAT VESSELS The aortic root is moderately enlarged. <Conclusion> There is normal left ventricular wall thickness. Left ventricle ejection fraction is borderline. Apical motion consistent with pacemaker activation. Transmitral Doppler flow pattern is Grade II-pseudonormal filling dynamics. The aortic valve is severely thickened. There is moderate to severe aortic regurgitation. Cannot exclude aortic valvular vegetation. Mitral regurgitation is mild to moderate. There is moderate to severe tricuspid regurgitation. There is moderate to severe pulmonary hypertension. The aortic root is moderately enlarged.
--- NOTE | 2018-12-01 18:54 | PN ---
DATE: 12/01/2018 SUBJECTIVE: The patient is seen in bed, in no acute distress. PHYSICAL EXAMINATION: VITAL SIGNS: Temperature is 98, blood pressure 120/70, respiratory rate 16. HEENT: Examination of HEENT is unremarkable. NECK: Supple. LUNGS: Decreased breath sounds. HEART: Normal S1, S2. ABDOMEN: Soft, nontender. LABORATORY DATA: Laboratory examination reveals a white count of 5.9, 31. Chemistries are noted. Microbiology reveals blood cultures initial ones are negative. The nearest cultures are gram negative amarilys and there is one blood culture that is positive for gram positive cocci in chain and negative for enterococcus by PNA FISH. Dr. Cosme Marsh's communication report is reviewed and he states that the patient has vascular dementia and behavioral changes. ASSESSMENT AND PLAN: This is an 83-year-old male with gram positive cocci bacteremia, change in mental status and currently on vancomycin and ceftriaxone and Dr. Marsh's input is appreciated. We will check on the identification gram positive cocci in chain and will follow current therapy of vancomycin and ceftriaxone. We will make further recommendation. Stefan Quarles MD
--- NOTE | 2018-12-01 20:21 | PN ---
DATE: 12/01/2018 SUBJECTIVE: The patient is an 83-year-old male. The patient is seen and examined at the bedside on 12/01/2018. Looking comfortable. No fever. No chills. No hematuria. No hematochezia. No headache. No dizziness. No chest pain. No palpitation. PHYSICAL EXAMINATION: VITAL SIGNS: Blood pressure 120/70, pulse 68, temperature 97.8, oxygen saturation is 97% on room air. HEENT: Head: Normocephalic and atraumatic. Eyes: PERRLA. Extraocular muscles intact. Conjunctivae clear. Nose patent. Mucous membranes moist. NECK: Supple. No carotid bruit, JVD or thyromegaly. CHEST: Bilaterally symmetrical. HEART: S1 and S2 positive. LUNGS: Clear to auscultation. ABDOMEN: Soft. Bowel sounds present. No organomegaly. EXTREMITIES: No edema. No cyanosis. NEUROLOGICAL: The patient is awake, alert, follows simples commands, but sometimes getting confusion. He is still on one-to-one. MEDICATIONS: Xanax, Eliquis, Lipitor, Coreg, Rocephin, Lasix, Neurontin, multivitamins, Seroquel, [place] nasal spray, Aldactone, trazodone and vancomycin. LABORATORY DATA: We do not have recent labs today, but I reviewed old labs. ASSESSMENT AND PLAN: Mr. Blade Escalona is an 83-year-old male with vascular dementia as per neurologist with behavioral disturbance, restless leg syndrome, atrial fibrillation, hypertension, hypothyroidism, insomnia, anemia, coronary artery disease, status post coronary artery bypass grafting, history of arrhythmia, status post cardiac pacemaker. Continue antibiotics as per Infectious Disease for sinusitis. Blood cultures are positive. Nasal culture is showing gram-negative rods. Continue present treatment. Discussion done withe the patient and nursing staff and my nurse practitioner and with Psychiatry. Gastrointestinal and deep venous thrombosis prophylaxis. I heard that Psychiatry discontinued one-to-one. We will follow up. Susie Ward MD
[2018-12-01] MEDS: MELATONIN PO SCH (22:16)
--- NOTE | 2018-12-01 22:28 | CON ---
DATE: 12/01/2018 HISTORY OF PRESENT ILLNESS: This is a 83-year-old male with past medical history of hypertension, coronary artery disease status post stent, heart failure, dementia, renal failure and history of cardiac cath, pacemaker since 2018, came here with the complaint of forgetfulness and visual hallucinations. I am called to see the patient for altered mental status. PAST MEDICAL HISTORY: Coronary artery disease, CHF, peripheral vascular disease, hypothyroidism, hypertension and dementia. PAST SURGICAL HISTORY: Status post pacemaker. REVIEW OF SYSTEMS: A 10-point review of systems was negative, but confused. at bedside. PHYSICAL EXAMINATION: HEENT: Normocephalic and atraumatic. NECK: Supple. NEUROLOGIC: Awake, oriented to self and place. Cranial nerves II through XII are tested. Pupils reactive. EOM intact. Visual rodriguez full. No facial asymmetry. Tongue midline. Motor examination; spontaneous movement of all extremities noted. Deep tendon reflexes 1+. Both plantars are downgoing. Sensory appears intact. Cerebellar gait deferred. IMPRESSION AND PLAN: Altered mental state superimposed on dementia and visual hallucination. We will start Aricept 10 mg p.o. daily. The patient is already on Seroquel 25 mg p.o. at bedtime. Continue present management. We will follow up. Shiv Marsh MD
--- NOTE | 2018-12-01 22:41 | PN ---
DATE: 12/01/2018 SUBJECTIVE: The patient is an 83-year-old male with history of dementia, was diagnosed approximately three years ago. Not known previous psychiatric history. The patient was followed up with Dr. Rosario at [facility]. The patient was admitted to the medical side because of worsening of depression, hallucinations, and mood lability. The patient presented to be very difficult for his who is the caregiver for the patient and who has multiple medical issues. The patient was seen over the weekend by Dr. Rosario. Medications adjusted. The patient was diagnosed with dementia with psychosis and behavioral disturbances, rule out contribution of delirium because blood work came back positive for gram positive cocci in chains. The patient was on one to one observation because of the confusion and sundowning. The patient was seen today. The patient presented to be alert, very pleasant. Based on report, the patient does not exhibit any agitation or aggression and decision was made to discontinue one to one and to see if the patient will be able to tolerate that well. This health technical writer reviewed. PHYSICAL EXAMINATION: VITAL SIGNS: Seems to be stable. MENTAL STATUS EXAM: The patient presented to be alert, very pleasant. Intermittent eye contact. The patient was able to recognize his . Mood described as okay. Affect was reactive, mood congruent. Thought process at times confabulating. The patient denied thoughts of harming himself or others. Denied intent or plan. The patient denied to have any hallucinations. Insight and judgment seems to be limited due to dementia and possible delirium. LABORATORY DATA: Reviewed. Microbiology reviewed. Reports reviewed. MEDICATIONS: Reviewed. The patient is on Xanax 0.25 mg every 8 hours as needed, Eliquis, Lipitor, Coreg, Rocephin, Aricept, Lasix, Neurontin, Namenda, multivitamins, melatonin, Seroquel 12.5 mg at 04:00 p.m. and 25 mg at the nighttime, Aldactone, trazodone 50 mg at the nighttime, and vancomycin. PLAN: Continue current management. Continue current medication. We will follow up on this patient every other day, one to one was discontinued. At the present moment, plan is subacute rehab with possible permanent placement. We will follow up and advise accordingly. Thank you very much for letting me participate in care of your patient. Next followup is on 12/03/2018. Arlin Alicea MD
[2018-12-02] MEDS: Vancomycin 1gm in NS 250ml 1 GM/250 ML BAG IVPB SCH ×3 (00:11→23:18)
[2018-12-02 08:43] VITALS: O2SAT 97
[2018-12-02] MEDS: Multivitamin Therapeutic Tab PO SCH (09:31)
[2018-12-02] MEDS: cefTRIAXone 2 GM IN NS 2 GM/100 ML BAG IVPB SCH ×2 (10:11→10:13)
--- NOTE | 2018-12-02 10:46 | PN ---
DATE: 11/30/2018 SUBJECTIVE: The patient is an 83-year-old male. The patient is seen and examined on the bedside on 11/30/2018. was sitting on the bedside. The patient is looking comfortable, still confused, still on one-to-one. Blood culture came positive. ID consult called. Even Neurology consult called. No fever. No chills. No hematuria. No hematochezia. No headache. No dizziness. No chest pain. No palpitation. The patient is a very poor historian. PHYSICAL EXAMINATION: VITAL SIGNS: Temperature 97.8, pulse 60, blood pressure , respiratory rate 20. HEENT: Head: Normocephalic and atraumatic. Eyes: PERRLA. Extraocular muscles intact. Conjunctivae clear. Nose patent. Mucous membranes moist. NECK: Supple. No carotid bruit, JVD or thyromegaly. CHEST: Bilaterally symmetrical. HEART: S1 and S2 positive. LUNGS: Clear to auscultation. ABDOMEN: Soft. Bowel sounds present. No organomegaly. EXTREMITIES: No edema. No cyanosis. NEUROLOGICAL: The patient is awake, alert, moving all four extremities. No focal deficits. MEDICATIONS: Aldactone, Coreg, trazodone, Eliquis, Lasix, Lipitor, Neurontin, Rocephin, Seroquel, multivitamins, vancomycin, Xanax. LABORATORY DATA: ESR 31. We do not have recent labs today, but I reviewed old labs. ASSESSMENT AND PLAN: The patient is an 83-year-old male with anemia, increased erythrocyte sedimentation rate, increased BUN, has altered mental status. Did chest x-ray, no active disease, reviewed by me. The patient has a history of dementia, coronary artery disease, coronary artery bypass surgery, cardiac arrhythmia requiring pacemaker, on anticoagulation, renal insufficiency, hypothyroidism, history of shingles in the past, restless legs syndrome and chronic obstructive pulmonary disease. The patient has bad sundowning. Family cannot take care of him. Blood culture shows gram-positive cocci in chains, preliminary. Called Infectious Disease, started antibiotics. Neurologist is on the case also. Repeat labs. We will follow up. Susie Ward MD
--- NOTE | 2018-12-02 12:14 | PN ---
DATE: 12/02/2018 PULMONARY PROGRESS NOTE REFERRING PHYSICIAN: Susie Ward MD SUBJECTIVE: The patient is seen sitting in armchair in room. No acute distress. No overnight events reported. The patient states he is waiting for his . No headache, rhinitis, chest pain, abdominal pain, nausea, vomiting, diarrhea, leg pain or leg swelling reported. OBJECTIVE: GENERAL: No acute distress. VITAL SIGNS: Blood pressure 144/77, pulse 83, temperature 97.2 and oxygen saturation 97% on room air. HEENT: Moist mucous membranes. NECK: Supple. No JVD. LUNGS: Fair airflow bilaterally. CARDIOVASCULAR: S1 and S2. ABDOMEN: Soft and nontender. No distension. No organomegaly. EXTREMITIES: No bilateral lower extremity edema. NEUROLOGIC: Awake, alert and verbal. Following commands. Has periods of confusion. MEDICATIONS: Reviewed. Xanax 0.25 mg every 8 hours p.r.n., Eliquis 5 mg twice a day, Lipitor 20 mg at dinner, Coreg 12.5 mg daily, Rocephin 2 g daily, Aricept 10 mg at bedtime, Lasix 40 mg daily, Neurontin 300 mg at bedtime, Namenda 10 mg daily, Hydrocerin cream topically every 6 hours p.r.n to affected area, multivitamin daily, melatonin 1 tab at bedtime, Seroquel 12.5 mg daily, Seroquel 25 mg at bedtime, [place] nasal spray every 3 hours, spironolactone 25 mg daily, trazodone 50 mg at bedtime and vancomycin 1 g every 12 hours. LABORATORY DATA: Reviewed. WBC 5.9, RBC 3.63, hemoglobin 11.2, hematocrit 35 and platelets 127. ESR 31. Sodium 138, potassium 4, chloride 103, carbon dioxide 28, anion gap 12, BUN 18, creatinine 0.8, GFR is greater than 60, random glucose 110 and calcium 8.8. C-reactive protein 6.7. Blood cultures preliminary no growth after 24 hours. Echocardiogram shows ejection fraction 56. RVSP 57. Aortic valves really thickened, moderate to severe aortic regurgitation, mild to moderate mitral regurgitation, moderate to severe tricuspid regurgitation, moderate to severe pulmonary hypertension and aortic roots moderately enlarged. IMPRESSION AND PLAN: Dementia, behavioral disorder, restless legs syndrome, atrial fibrillation, hypertension, hyperthyroidism, insomnia, anemia, coronary artery disease, history of coronary artery bypass graft in the past, cardiac pacemaker and pulmonary hypertension. Nasal culture shows pseudomonas aeruginosa. Continue antibiotics per Infectious Disease. Pulmonary point of view, the patient pulmonary status is stable at this time. Fall precautions. The patient is currently on anticoagulation therapy. This patient was seen and examined with Dr. Black. Discussed assessment and plan as described above. This patient was seen and examined by Nikolai Brunson, nurse practitioner. Discussed assessment and plan as described above. Thank you for this consult. We will follow with you. Nikolai Brunson APN Nabeel Black MD
--- NOTE | 2018-12-02 20:50 | PN ---
DATE: 12/02/2018 SUBJECTIVE: The patient is an 83-year-old male. The patient was seen and examined on the bedside on 12/02/2018. Still confused but not agitated the way he was, seen by the psychiatrist. Discontinue one-to-one. Discussion done with the patient's nurse. No fever. No chills. No hematuria. No hematochezia. No swelling of the legs. No headache. No dizziness. No chest pain. No palpitation. PHYSICAL EXAMINATION: VITAL SIGNS: Blood pressure 144/77, pulse 83, temperature 97.2, oxygen saturation 97% on room air. HEENT: Head: Normocephalic and atraumatic. Eyes: PERRLA. Extraocular muscles intact. Conjunctivae clear. Nose patent. Mucous membranes moist. NECK: Supple. No carotid bruit. No JVD or thyromegaly. CHEST: Bilaterally symmetrical. HEART: S1 and S2 positive. LUNGS: Clear to auscultation. ABDOMEN: Soft. Positive organomegaly. EXTREMITIES: No edema. No cyanosis. NEUROLOGICAL: The patient is awake, alert, moving all four extremities. No focal deficits. MEDICATIONS: Xanax, Eliquis, Lipitor, Coreg, Rocephin, Aricept, Lasix, Neurontin, Namenda, Hydrocerin cream topically, multivitamins, Seroquel, nasal spray, spironolactone, tramadol, vancomycin. LABORATORY DATA: White blood cell 5.9, hemoglobin 11.2, hematocrit 35, platelets 127. Sodium 138, potassium 4, BUN 18, creatinine 0.8. ASSESSMENT AND PLAN: Mr. Blade Escalona is an 83-year-old male with multiple medical problems, advanced dementia with behavioral disorder, restless leg syndrome. Psychiatry is on the case. He used to be on one-to-one. Now discontinued by Psychiatry. Atrial fibrillation, hypertension, hypothyroidism, insomnia, coronary artery disease, coronary artery bypass surgery, status post open heart surgery, cardiac pacemaker, pulmonary hypertension. Nasal culture shows Pseudomonas aeruginosa. Continue antibiotics as per Infectious Disease. Gastrointestinal and deep venous thrombosis prophylaxis. Repeat labs. We will follow up. Susie Ward MD
[2018-12-02] MEDS: MELATONIN PO SCH (21:34)
--- NOTE | 2018-12-02 23:07 | PN ---
DATE: 12/02/2018 SUBJECTIVE: The patient is seen in bed, in no acute distress. OBJECTIVE: VITAL SIGNS: Temperature is 97, blood pressure is 130/60, and respiratory rate is 18. HEENT: Unremarkable. NECK: Supple. LUNGS: Have decreased breath sounds. HEART: Normal S1 and S2. ABDOMEN: Soft. LABORATORY DATA: Reveals a white count of 5.9 and hemoglobin of 11. BUN of 18 and creatinine of 0.8. Urinalysis is noted. Microbiology reveals the blood cultures have Streptococcus species with Pseudomonas from the nares. The repeat blood cultures are no growth. The patient had an echo yesterday, which revealed aortic valve is severely thickened, cannot rule out aortic valve vegetation. The patient's sed rate is 31 with a C-reactive protein is 6.7. ASSESSMENT AND PLAN: This is an 83-year-old male who was seen earlier today in room 372, bed 1 with Streptococcus bacteremia and change in mental status with a questionable echo findings, currently on vancomycin. The Pseudomonas from the nares, which is of no significance. We will continue present course. The patient is still confused as of this morning. Dr. Black's note is reviewed. We will follow closely with you. Stefan Quarles MD
[2018-12-03 06:43] LABS: HEMOGLOBIN 12.2 g/dL (14.0-18.0); MEAN CELL VOLUME 95.4 fl (80.0-105.0); MEAN CORPUSCULAR HEMOGLOBIN 30.9 pg (25.0-35.0); MEAN CORPUSCULAR HGB CONC 32.4 g/dl (31.0-37.0); MEAN PLATELET VOLUME 9.8 fl (7.0-11.0); RBC 3.95 10^6/uL (3.5-6.1); RED CELL DISTRIBUTION WIDTH 14.9 % (11.5-14.5); WHITE BLOOD COUNT 5.8 10^3/uL (4.5-11.0)
[2018-12-03 06:49] LABS: BLOOD UREA NITROGEN 19 mg/dL (7-21); CALCIUM 9.3 mg/dL (8.4-10.5); GFR NON-AFRICAN AMERICAN > 60
[2018-12-03] MEDS: Multivitamin Therapeutic Tab PO SCH (10:39)
[2018-12-03] MEDS: cefTRIAXone 2 GM IN NS 2 GM/100 ML BAG IVPB SCH ×2 (10:40→10:44)
[2018-12-03] MEDS: Vancomycin 1gm in NS 250ml 1 GM/250 ML BAG IVPB SCH (10:44)
--- NOTE | 2018-12-03 13:01 | PN ---
DATE: 12/03/2018 PULMONARY PROGRESS NOTE REFERRING PHYSICIAN: Dr. Susie Ward. SUBJECTIVE: The patient is seen lying in bed. No acute distress. No overnight events reported. No headache, rhinitis, cough, shortness of breath, chest pain, abdominal pain, nausea, vomiting, diarrhea, leg pain, or leg swelling reported. OBJECTIVE: GENERAL: No acute distress. VITAL SIGNS: Blood pressure 121/73, pulse 61, temperature 98.3, and oxygen saturation 97% on room air. HEENT: Moist mucous membranes. NECK: Supple. No JVD. LUNGS: Fair airflow bilaterally. CARDIOVASCULAR: S1 and S2. ABDOMEN: Soft and nontender. No distension. No organomegaly. EXTREMITIES: No bilateral lower extremity edema. NEUROLOGIC: Awake, alert, and verbal. Following commands. Has periods of confusion. MEDICATIONS: Reviewed. Xanax 0.25 mg every 8 hours p.r.n., Eliquis 5 mg twice a day, Lipitor 20 mg at dinner, Coreg 12.5 mg daily, Rocephin 2 g daily, Aricept 10 mg at bedtime, Lasix 40 mg daily, Neurontin 300 mg at bedtime, Namenda 10 mg daily, Hydrocerin cream topically every 6 hours p.r.n to affected area, multivitamin 1 tab daily, melatonin 1 tab at bedtime, Seroquel 12.5 mg daily, Seroquel 25 mg at bedtime, [place] nasal spray every 3 hours, Aldactone 25 mg daily, trazodone 50 mg at bedtime and vancomycin 1 g every 12 hours. LABORATORY DATA: Reviewed. WBC 5.8, RBC 3.95, hemoglobin 12.2, and hematocrit 37.7. Sodium 138, potassium 3.6, chloride 99, carbon dioxide 29, anion gap 13, BUN 19, creatinine 0.8, GFR greater than 60, random glucose 98, and calcium 9.3. Blood cultures preliminary, no growth after three days. IMPRESSION AND PLAN: Dementia, behavioral disorder, restless legs syndrome, atrial fibrillation, hypertension, hyperthyroidism, anemia, coronary artery disease, insomnia, history of coronary artery bypass graft, cardiac pacemaker, and pulmonary hypertension. Continue antibiotics per Infectious Disease and fall precautions. The patient is currently on anticoagulation therapy. This patient was seen and examined with Dr. Black. Discussed assessment and plan as described above. This patient was seen and examined by Nikolai Brunson, nurse practitioner. Discussed assessment and plan as described above. Thank you for this consult. We will follow with you. Nikolai Brunson APN Nabeel Black MD
[2018-12-03] MEDS ORDERED: Amoxicillin-Clav 875-125 mg Tab PO SCH (17:17)
[2018-12-03 17:44] VITALS: BP 125/61; PULSE 62; RESP 18; TEMP 98.4
--- NOTE | 2018-12-03 20:59 | PN ---
DATE: 12/03/2018 SUBJECTIVE: The patient was followed up today. The patient presented well. There is no agitation, no aggression. Psychiatry was involved into the patient care because of periods of confusion and depression as well as mood lability. Psychiatry followed up on the patient daily. The patient was seen today. The patient presented relatively well. The patient does not appear to be agitated or aggressive. The patient is not on one-to-one. The patient is following direction by staff and compliant with the medications. MEDICATIONS: Reviewed. The patient is on Xanax 0.25 mg every 8 hours as needed. The patient is on Eliquis, Lipitor, Coreg, Rocephin, Aricept, Lasix, Neurontin, Namenda, multivitamins, Seroquel 12.5 mg at 4 p.m. and 25 mg at the nighttime which the patient tolerated very well. The patient is on Aldactone, trazodone 50 mg at the nighttime and vancomycin. LABORATORY DATA: Labs reviewed. Hemoglobin and hematocrit 12.2 and 37.7. Chemistry reviewed. Urinalysis reviewed. PHYSICAL EXAMINATION: VITAL SIGNS: Seems to be stable. Temperature 98.3, pulse 61, blood pressure 145/72, respirations 26, and saturation is 97. MENTAL STATUS EXAMINATION: The patient presented to be alert. The patient knows that he is in the hospital. The patient is pleasantly confused. Mood described as okay. Affect was constricted, but at times reactive. Mood congruent. Thought process seems to be at times circumstantial. The patient denied hearing voices, denied seeing things. Insight and judgment seems to be limited due to dementia. Impulses are well controlled. IMPRESSION: Delirium plus dementia. Delirium is improving. PLAN: Continue current management. Continue current medication. The patient accepted for LTC at [facility], no objection over that. The patient needs to be followed up with psychiatrist and neurologist in the in the facility. The patient should continue all of his medications. This advertising writer will sign off. Should you have any questions give me a call back. Thank you very much. Arlin Alicea MD
--- NOTE | 2018-12-03 22:56 | PN ---
DATE: 12/03/2018 SUBJECTIVE: The patient is seen in bed, in no acute distress, nontoxic. PHYSICAL EXAMINATION: VITAL SIGNS: Temperature is 98, blood pressure is 120/60, respiratory rate of 18. HEENT: Unremarkable. NECK: Supple. LUNGS: Decreased breath sounds. HEART: Normal S1, S2. ABDOMEN: Soft. LABORATORY DATA: The patient's white count is 5.8, hemoglobin of 12, hematocrit is 31, chemistries are noted. ASSESSMENT AND PLAN: This is an 83-year-old male who was seen earlier today in room 372, bed 1, and he has Streptococcus bacteremia. The patient does have mental status change. Echocardiogram was done. The patient does have a pacemaker, difficult to differentiate thickened aortic valve, unable to appreciate endocarditis or vegetation. The patient's repeat blood cultures are negative. We will treat with ceftriaxone once daily. The patient is to be transferred out and will treat at least another 14 days, repeat echocardiogram in one week, sedimentation rate, C-reactive protein, oral evaluation and we will make further recommendations as an outpatient. Stefan Quarles MD
--- NOTE | 2018-12-04 03:03 | DS ---
The patient was seen and examined at the bedside on 12/03/2018. CHIEF COMPLAINT: Altered mental status. HISTORY OF PRESENT ILLNESS: Mr. Blade Escalona, an 83-year-old male with multiple medical problems, TIA, dementia, congestive heart failure, CABG, pacemaker, atrial fibrillation on Eliquis was brought to emergency department by the spouse. The patient has worsening altered mental status. Sometimes his behavior is getting very aggressive, cannot handle it. Sometimes hallucinating and delusional. The patient was recently at [facility] and was in the process of placement. We admitted the patient, did CAT scan of the head. Seen by Dr. Arlin Alicea, psychiatrist and Dr. Black, pulmonary critical care. The patient had sepsis, treated with Dr. Stefan Quarles. Dr. Marsh saw the patient, improved, still getting IV Rocephin. Discharged to [facility]. Will continue antibiotics there and will continue physical therapy. PAST MEDICAL HISTORY: Coronary artery disease, CABG x4, cardiac stenting, COPD, dementia, renal failure, hypothyroidism, anemia, shingles, hematuria, insomnia, coronary artery stents x7, open heart surgery and orthopedic surgery. FAMILY HISTORY: Father and mother noncontributory. HABITS: No smoking. No drugs . No ethanol. ALLERGIES: THE PATIENT IS ALLERGIC TO LYRICA AND AMBIEN. HOME MEDICATIONS: Reviewed by me. REVIEW OF SYSTEMS: The patient was seen and examined at the bedside, looking comfortable. No fever. No chills. No hematuria. No hematochezia. No headache. No dizziness. No chest pain. No palpitations. No nausea, vomiting or diarrhea. PHYSICAL EXAMINATION: VITAL SIGNS: Blood pressure 120/70, pulse 61, temperature 98.3, oxygen saturation 97% on room air. HEENT: Head is normocephalic ,atraumatic. Eyes; PERRLA. Extraocular muscles intact. Conjunctivae clear. Nose patent. NECK: Supple. No carotid bruits. No JVD. No thyromegaly. CHEST: Bilateral symmetrical. HEART: S1, S2 positive. LUNGS: Clear to auscultation. ABDOMEN: Soft. Bowel sounds present. No organomegaly. EXTREMITIES: No edema. No cyanosis. NEUROLOGIC: The patient awake, alert. Moving all four extremities. No focal deficits. MEDICATIONS: Xanax, Eliquis, Lipitor, Coreg, Rocephin, Aricept, Lasix, Neurontin, Namenda, melatonin, Seroquel, Aldactone. LABORATORY DATA: White cell 5.8, hemoglobin 12.2, hematocrit 37.7. Sodium 138, potassium 3.6, BUN 19, creatinine 0.8. ASSESSMENT AND PLAN: Mr. Blade Escalona is an 83-year-old male with multiple medical problems, came in with altered mental status and dementia with behavioral problems. The patient was on one-on-one for a couple of days, now he is without one-on-one. Restless leg syndrome ,atrial fibrillation, hypertension, hyperthyroidism, anemia, coronary artery disease, insomnia, history of coronary artery bypass surgery, cardiac pacemaker, atrial fibrillation, pulmonary hypertension, sepsis. Continue antibiotics as per Infectious Disease. Needs good physical therapy. Transferred to subacute rehab as per physical therapy requirement. Seen by Dr. Arlin Alicea. Gastrointestinal and deep venous thrombosis prophylaxis given. Repeat labs. We will follow up. Susie Ward MD
[2018-12-04] MEDS ORDERED: cefTRIAXone 2 GM IN NS 2 GM/100 ML BAG IVPB SCH (10:00)
== END 2018-12-03 18:31 | DRG 884 ==
LOC: ED 06:47 → ERH 09:47 → 3RSO 13:20
PROVIDERS: ADMIT Internal Medicine; ATTEND Internal Medicine
DX: F01.51 Vascular dementia, unspecified severity, with behavioral disturbance (principal); R78.81 Bacteremia; F05 Delirium due to known physiological condition; F02.81 Dementia in other diseases classified elsewhere, unspecified severity, with behavioral disturbance; G30.9 Alzheimer's disease, unspecified; B95.5 Unspecified streptococcus as the cause of diseases classified elsewhere; J44.9 Chronic obstructive pulmonary disease, unspecified; I25.10 Atherosclerotic heart disease of native coronary artery without angina pectoris; G25.81 Restless legs syndrome; N40.0 Benign prostatic hyperplasia without lower urinary tract symptoms; G93.89 Other specified disorders of brain; I48.91 Unspecified atrial fibrillation; I11.0 Hypertensive heart disease with heart failure; I50.9 Heart failure, unspecified; I73.9 Peripheral vascular disease, unspecified; E03.9 Hypothyroidism, unspecified; G47.00 Insomnia, unspecified; N47.1 Phimosis; I08.3 Combined rheumatic disorders of mitral, aortic and tricuspid valves; I27.20 Pulmonary hypertension, unspecified; D64.9 Anemia, unspecified; H91.91 Unspecified hearing loss, right ear; Z86.73 Personal history of transient ischemic attack (TIA), and cerebral infarction without residual deficits; Z95.0 Presence of cardiac pacemaker; Z95.1 Presence of aortocoronary bypass graft; Z87.442 Personal history of urinary calculi; Z95.5 Presence of coronary angioplasty implant and graft; Z79.01 Long term (current) use of anticoagulants

== ENCOUNTER 2019-01-29 18:10 | Observation (INO) | payer MEDICARE, MEDICAID ==
[2019-01-29] MEDS ORDERED: Sodium Chloride 0.9% 500 ML IV SCH (18:30)
--- NOTE | 2019-01-29 18:34 | ED PDOC ---
Arrival/HPI - General Chief Complaint: Groin Pain Time Seen by Provider: 01/29/19 18:13 Historian: Patient, Family - History of Present Illness Narrative History of Present Illness (Text): 01/29/19 18:31 83-year-old male presents today with a 2-day history of left lower groin pain. Family states they noticed an open wound on the left side of the lower abdomen right over the site of a hernia. Patient has had decreased appetite. No vomiting. No diarrhea. No bowel movement today. No urinary symptoms. No testicular pain. No fevers or chills. 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) Other/Comment: wears eyeglasses - Renal Hx Renal Failure: Yes - Endocrine/Metabolic Hx Hypothyroidism: Yes - Hematological/Oncological Hx Blood Disorders: Yes Hx Anemia: Yes Hx Shingles: Yes - Integumentary Hx Dermatological Disorder: Yes Other/Comment: ecchymosis and hematoma L buttock/hip area - Musculoskeletal/Rheumatological Hx Falls: Yes - Gastrointestinal Hx Gastrointestinal Disorders: Yes (gi bleed) Hx Pancreatitis: Yes - Genitourinary/Gynecological Hx Genitourinary Disorders: Yes Hx Prostate Problems: Yes (BPH PHIMOSIS) Hx Urinary Tract Infection: Yes - Psychiatric Hx Psychophysiologic Disorder: Yes (INSOMNIA) Hx Substance Use: No - Surgical History Hx Cardiac Catheterization: Yes Hx Coronary Stent: Yes (x 7 stents) Hx Open Heart Surgery: Yes Hx Orthopedic Surgery: Yes - Anesthesia Hx Anesthesia: Yes Hx Anesthesia Reactions: No Hx Malignant Hyperthermia: No - Suicidal Assessment Feels Threatened In Home Enviroment: No Family/Social History - Physician Review Nursing Documentation Reviewed: Yes Family/Social History: Unknown Family HX Smoking Status: Never Smoked Hx Alcohol Use: Yes (social) Hx Substance Use: No Allergies/Home Meds Allergies/Adverse Reactions: Allergies pregabalin [From Lyrica] Adverse Reaction (Verified 01/29/19 18:23) aggitated zolpidem [From Ambien] Adverse Reaction (Verified 01/29/19 18:23) Sensitivity Sensitivity - has opposite effect than intended. Review of Systems - Review of Systems Constitutional: absent: Fatigue, Fevers Respiratory: absent: SOB, Cough Cardiovascular: absent: Chest Pain, Palpitations Gastrointestinal: Abdominal Pain, Appetite Changes. absent: Constipation, Diarrhea, Nausea, Vomiting Genitourinary Male: absent: Dysuria, Frequency, Hematuria Musculoskeletal: absent: Arthralgias, Back Pain, Neck Pain Skin: absent: Rash, Pruritis Neurological: absent: Headache, Dizziness Physical Exam Vital Signs Reviewed: Yes Temperature: Afebrile Blood Pressure: Normal Pulse: Regular Respiratory Rate: Normal Appearance: Positive for: Well-Appearing, Non-Toxic, Comfortable Pain Distress: None Mental Status: Positive for: Alert and Oriented X 3 - Systems Exam Head: Present: Atraumatic Mouth: Present: Moist Mucous Membranes Neck: Present: Normal Range of Motion Respiratory/Chest: Present: Clear to Auscultation, Good Air Exchange. No: Respiratory Distress, Accessory Muscle Use Cardiovascular: Present: Regular Rate and Rhythm, Normal S1, S2. No: Murmurs Abdomen: Present: Tenderness, Guarding, Hernias (+ left inguinal hernia noted; tender. There is an open wound noted over the hernia site. no surrounding erythema. ) Genitourinary Male: Present: Normal External Genitalia. No: Penile Discharge, Testicle Tenderness, Penile Swelling, Erythema Back: Present: Normal Inspection Upper Extremity: Present: Normal ROM, Other (multiple areas of ecchymosis noted to both forearms. non tender) Lower Extremity: Present: Normal ROM Neurological: Present: GCS=15, Speech Normal Skin: Present: Warm, Dry, Normal Color Psychiatric: Present: Alert, Oriented x 3 Medical Decision Making ED Course and Treatment: 01/29/19 22:27 FINDINGS: LUNG BASES: The lung bases appear clear. No pleural effusions are seen. Bibasilar interstitial fibrotic scarring is noted. Visualized heart is mildly enlarged. There are post sternotomy changes. Pacemaker leads are seen extending to the ventricular regions. LIVER: 1 x 2 cm focus of arterial enhancement in the high right posterior near series 2, image 11. This is incompletely characterized on the current study. This was not appreciable on the prior study dated October 22, 2018. If indicated, this could be further evaluated with multiphasic liver CT or liver MRI. GALLBLADDER AND BILE DUCTS: The gallbladder appears within normal limits. No radioopaque gallstones are seen. No biliary ductal dilatation is evident. PANCREAS: Stable appearance compared with October 2018. This includes calcification in the pancreatic tail region and some prominence of the pancreatic duct in the region of the pancreatic body and pancreatic head. Please correlate with any prior workup and if indicated this could be further evaluated with MRCP or ERCP. SPLEEN: Unremarkable. ADRENAL GLANDS: Unremarkable. KIDNEYS, URETERS, AND BLADDER: The kidneys appear within normal limits. There is no hydronephrosis or hydro ureter. A 1.1 cm non-obstructing calculus is seen in the posterior lower left renal pole. A 1.9 cm cortical cyst arises from the posterior upper-mid right renal pole. A 4.0 cm cyst arises from the lower medial left renal pole. The urinary bladder appeared normal in size and configuration. STOMACH AND BOWEL: Unremarkable appearance of the stomach. No evidence of bowel obstruction. There is mucosal wall thickening of the small intestinal tract with fluid in the lumen noted thought compatible with diffuse enteritis. Infectious or inflammatory etiologies are thought most likely. No evidence suggesting colitis. There is constipation in the colon. APPENDIX: No evidence of acute appendicitis on CT examination. PERITONEUM: No free fluid. No free air. LYMPH NODES: No lymphadenopathy is evident. REPRODUCTIVE: Unremarkable as visualized. Small fat and fluid containing left inguinal hernia. No involved bowel loops. VASCULATURE: No evidence of abdominal aortic aneurysm. There is extensive atherosclerotic vascular plaquing present. A short segment of old aortic dissection is seen in the left postero-lateral aspect of the infrarenal abdominal aorta. BONES: No aggressive appearing osseous lesion. No acute osseous pathology evident. There is evidence of advanced degenerative disc disease at L3-4 and L5-S1. Advanced osteoarthritic changes are seen in the right hip. Multilevel de generative spine changes, most notably in the lumbar spine. IMPRESSION: 1. A 1.1 cm non-obstructing calculus is seen in the posterior lower left renal pole. 2. Evidence of diffuse enteritis. 3. A short segment of old aortic dissection in the left posterolateral infrarenal abdominal aorta is again identified. Little interval change. 4. Left inguinal hernia containing fat and a small amount of fluid. However, this appears less prominent on the current study than on the prior study dated October 2018. Please correlate clinically. Electronically signed on January 29, 2019 10:14:58 PM EDT by: Caleb Singh M.D., Certified by [facility], Diagnostic Radiology case was discussed with residential builder dr. garcia; cbc; wnl cmp; bun; 41/ cr: 1.0 lactatic acid; 2.1; no sirs criteria. 01/29/19 23:59 pt started on rocephin for UTI. case discussed with dr. ward; accepts admission to med/surg. consult dr. gusman. impression; abdominal pain, hernia,UTI admit. Reassessment Condition: Re-examined, Improved - RAD Interpretation Radiology Orders: 01/29/19 18:28 CHEST PORTABLE [RAD] Stat 01/29/19 18:29 ABD & PELVIS IV CONTRAST ONLY [CT] Stat - Medication Orders Current Medication Orders: Sodium Chloride (Sodium Chloride 0.9%) 500 mls @ 60 mls/hr IV .Q8H20M RADU Disposition/Present on Arrival - Present on Arrival Any Indicators Present on Arrival: No History of DVT/PE: No History of Uncontrolled Diabetes: No Urinary Catheter: No History of Decub. Ulcer: No History Surgical Site Infection Following: None - Disposition Have Diagnosis and Disposition been Completed?: Yes Diagnosis: Abdominal pain, UTI (urinary tract infection), Hernia Disposition: HOSPITALIZED Disposition Time: 22:00 Patient Plan: Observation Patient Problems: Current Active Problems Problem Status Onset Abdominal pain Acute Urinary tract infection Acute Condition: FAIR
[2019-01-29 19:51] LABS: VENOUS BLOOD GAS BASE EXCESS 8.3 mmol/L (0.0-2.0); VENOUS BLOOD GAS PO2 39 mm/Hg (30-55); VENOUS BLOOD PH 7.34 (7.32-7.43)
[2019-01-29 20:00] LABS: BASO # 0.01 K/mm3 (0.0-2.0); BASO % 0.2 % (0.0-3.0); EOS % 0.5 % (1.5-5.0); HEMOGLOBIN 12.7 g/dL (14.0-18.0); LYMPH % 16.2 % (22.0-35.0); MEAN CELL VOLUME 96.1 fl (80.0-105.0); MEAN CORPUSCULAR HEMOGLOBIN 31.2 pg (25.0-35.0); MEAN CORPUSCULAR HGB CONC 32.5 g/dl (31.0-37.0); MEAN PLATELET VOLUME 9.6 fl (7.0-11.0); MONO # 0.5 (0.1-0.6); RBC 4.07 10^6/uL (3.5-6.1); RED CELL DISTRIBUTION WIDTH 14.7 % (11.5-14.5); WHITE BLOOD COUNT 6.4 10^3/uL (4.5-11.0)
[2019-01-29 20:09] LABS: INR 2.93; PARTIAL THROMBOPLASTIN TIME 35.5 Seconds (26.9-38.3); PROTHROMBIN TIME 32.5 SECONDS (9.4-12.5)
[2019-01-29 20:12] LABS: ALB/GLOB RATIO 1.3 (1.1-1.8); ALBUMIN 3.9 g/dL (3.0-4.8); ALT/SGPT 15 U/L (7-56); AST/SGOT 22 U/L (17-59); BLOOD UREA NITROGEN 41 mg/dL (7-21); GFR NON-AFRICAN AMERICAN > 60
[2019-01-29 20:16] LABS: URINE BILIRUBIN NEGATIVE (NEGATIVE); URINE BLOOD SMALL (NEGATIVE); URINE GLUCOSE (UA) NEGATIVE (NEGATIVE); URINE LEUKOCYTE ESTERASE SMALL Leu/uL (NEGATIVE); URINE PROTEIN NEGATIVE mg/dL (<30 mg/dL)
[2019-01-29 20:18] LABS: URINE APPEARANCE CLEAR (CLEAR); URINE COLOR YELLOW (YELLOW)
[2019-01-29] MEDS ORDERED: Iohexol 350 MG/100 ML VIAL ONE (20:28)
--- NOTE | 2019-01-29 21:22 | CP.PCM.CON ---
History of Present Illness - History of Present Illness History of Present Illness: General Surgery: Dr Pedraza Pt is an 83M with PMH of TIA, CHF, Dementia, CABG w/ pacemaker on eliquis. Pt presents to ED with 2 days of right inguinal pain. Pt is baseline AMS. He has been evaluated for this hernia numerous times, has been deemed poor surgical candidate, and additional refused surgery from two other surgeons at a time in which his mental status was determined to be adequate. Additionally, his family noticed some ulceration overlying the inguinal region. They report pt has had less appetite lately, but has not had any obstructive symptoms. Last BM yesterday. PMH: TIA, CHF, CKD, Dementia PSH; CABG, Pacemaker Review of Systems - Review of Systems All systems: reviewed and no additional remarkable complaints except (as per hpi) Past Patient History - Infectious Disease Hx of Infectious Diseases: None - Tetanus Immunizations Tetanus Immunization: Unknown - Past Medical History & Family History Past Medical History?: Yes - Past Social History Smoking Status: Never Smoked - CARDIAC Hx Congestive Heart Failure: Yes - PULMONARY Hx Chronic Obstructive Pulmonary Disease (COPD): Yes - NEUROLOGICAL HX Cerebrovascular Accident: Yes (TIA) - HEENT Hx HEENT Problems: Yes (DECREASED PHERIPHERAL VISION) 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) Other/Comment: wears eyeglasses - RENAL Hx Renal Failure: Yes - ENDOCRINE/METABOLIC Hx Hypothyroidism: Yes - HEMATOLOGICAL/ONCOLOGICAL Hx Blood Disorders: Yes Hx Anemia: Yes Hx Shingles: Yes - INTEGUMENTARY Hx Dermatological Problems: Yes Other/Comment: ecchymosis and hematoma L buttock/hip area - MUSCULOSKELETAL/RHEUMATOLOGICAL Hx Falls: Yes - GASTROINTESTINAL Hx Gastrointestinal Disorders: Yes (gi bleed) Hx Pancreatitis: Yes - GENITOURINARY/GYNECOLOGICAL Hx Genitourinary Disorders: Yes Hx Prostate Problems: Yes (BPH PHIMOSIS) Hx Urinary Tract Infection: Yes - PSYCHIATRIC Hx Psychophysiologic Disorder: Yes (INSOMNIA) Hx Substance Use: No - SURGICAL HISTORY Hx Cardiac Catheterization: Yes Hx Coronary Stent: Yes (x 7 stents) Hx Open Heart Surgery: Yes Hx Orthopedic Surgery: Yes - ANESTHESIA Hx Anesthesia: Yes Hx Anesthesia Reactions: No Hx Malignant Hyperthermia: No Meds Allergies/Adverse Reactions: Allergies Allergy/AdvReac Type Severity Reaction Status Date / Time pregabalin [From Lyrica] AdvReac aggitated Verified 01/29/19 18:23 zolpidem [From Ambien] AdvReac Sensitivity Verified 01/29/19 18:23 - Medications Medications: Current Medications Sodium Chloride (Sodium Chloride 0.9%) 500 mls @ 60 mls/hr IV .Q8H20M RADU Last Admin: 01/29/19 19:56 Dose: 60 mls/hr Physical Exam - Constitutional Appears: Cachectic - Eye Exam Eye Exam: Normal appearance - ENT Exam ENT Exam: Mucous Membranes Dry - Respiratory Exam Respiratory Exam: absent: Accessory Muscle Use, Respiratory Distress - Cardiovascular Exam Cardiovascular Exam: REGULAR RHYTHM. absent: Tachycardia - GI/Abdominal Exam GI & Abdominal Exam: Hernia (bilateral inguinal - reducible and fat containing), Soft. absent: Distended, Firm, Guarding Results - Vital Signs Recent Vital Signs: Last Vital Signs Temp 97.5 F L 01/29/19 19:42 Pulse 87 01/29/19 19:42 Resp 16 01/29/19 19:42 BP 116/60 01/29/19 19:42 Pulse Ox 98 01/29/19 19:42 - Labs Result Diagrams: 01/29/19 19:32 01/29/19 19:32 Labs: Laboratory Results - last 24 hr 01/29/19 01/29/19 01/29/19 19:32 19:32 19:32 WBC 6.4 RBC 4.07 Hgb 12.7 L Hct 39.1 L MCV 96.1 MCH 31.2 MCHC 32.5 RDW 14.7 H Plt Count 207 MPV 9.6 Neut % (Auto) 75.1 H Lymph % (Auto) 16.2 L [place] % (Auto) 8.0 H Eos % (Auto) 0.5 L Baso % (Auto) 0.2 Lymph # (Auto) 1.0 L [place] # (Auto) 0.5 Eos # (Auto) 0.0 Baso # (Auto) 0.01 Absolute Neuts (auto) 4.77 PT 32.5 H INR 2.93 APTT 35.5 pO2 VBG pH VBG pCO2 VBG HCO3 VBG Total CO2 VBG O2 Sat (Calc) VBG Base Excess VBG Potassium Glucose Lactate FiO2 Crit Value Called To Crit Value Called By Blood Gas Notified Time Sodium 133 Potassium 4.4 Chloride 90 L Carbon Dioxide 33 Anion Gap 14 BUN 41 H Creatinine 1.0 Est GFR ( Amer) > 60 Est GFR (Non-Af Amer) > 60 Random Glucose 162 H Calcium 9.0 Total Bilirubin 1.5 H AST 22 ALT 15 Alkaline Phosphatase 58 Total Protein 6.9 Albumin 3.9 Globulin 3.0 Albumin/Globulin Ratio 1.3 Venous Blood Potassium Urine Color Urine Appearance Urine pH Ur Specific [place] Urine Protein Urine Glucose (UA) Urine Ketones Urine Blood Urine Nitrate Urine Bilirubin Urine Urobilinogen Ur Leukocyte Esterase Urine RBC Urine WBC Ur Epithelial Cells 01/29/19 01/29/19 19:42 20:00 WBC RBC Hgb Hct MCV MCH MCHC RDW Plt Count MPV Neut % (Auto) Lymph % (Auto) [place] % (Auto) Eos % (Auto) Baso % (Auto) Lymph # (Auto) [place] # (Auto) Eos # (Auto) Baso # (Auto) Absolute Neuts (auto) PT INR APTT pO2 39 VBG pH 7.34 VBG pCO2 68.0 H* VBG HCO3 36.7 H VBG Total CO2 38.8 H VBG O2 Sat (Calc) 71.8 H VBG Base Excess 8.3 H VBG Potassium 4.3 Glucose 166 H Lactate 2.1 FiO2 21.0 Crit Value Called To Annmarie Crit Value Called By Atc Blood Gas Notified Time 1950 Sodium 133.0 Potassium Chloride 94.0 L Carbon Dioxide Anion Gap BUN Creatinine Est GFR ( Amer) Est GFR (Non-Af Amer) Random Glucose Calcium Total Bilirubin AST ALT Alkaline Phosphatase Total Protein Albumin Globulin Albumin/Globulin Ratio Venous Blood Potassium 4.3 Urine Color Yellow Urine Appearance Clear Urine pH 6.0 Ur Specific [place] 1.020 Urine Protein Negative Urine Glucose (UA) Negative Urine Ketones Negative Urine Blood Small H Urine Nitrate Negative Urine Bilirubin Negative Urine Urobilinogen 1.0 H Ur Leukocyte Esterase Small H Urine RBC 10 - 15 H Urine WBC 5 - 10 H Ur Epithelial Cells 10 - 12 H Assessment & Plan - Assessment and Plan (Free Text) Assessment: 83M with reducible RIH Plan: inguinal herna is reducible pt is poor surgical candidate and has consistently refused surgery in the past will give localwound care recs for overlying ulcer will d/w Dr Milo Jones, PGY4
[2019-01-29] MEDS ORDERED: cefTRIAXone 1 gm 1 GM/100 ML BAG IVPB STA (23:33)
[2019-01-30 03:30] LABS: VENOUS BLOOD GAS BASE EXCESS -0.5 mmol/L (0.0-2.0); VENOUS BLOOD GAS PO2 64 mm/Hg (30-55); VENOUS BLOOD PH 7.32 (7.32-7.43)
[2019-01-30 04:31] VITALS: BMI 12.2
[2019-01-30 08:02] VITALS: PULSE 91; RESP 19; TEMP 98.2; O2SAT 95
--- NOTE | 2019-01-30 09:17 | CT ---
Date of service: 01/29/2019 PROCEDURE: CT Abdomen and Pelvis with and without intravenous contrast HISTORY: abd/left groin pain/ hernia COMPARISON: 10/22/2018 TECHNIQUE: Axial images of the abdomen were obtained in the pre contrast, portal venous and delayed phases of enhancement. Coronal and sagittal reformats were generated. Contrast dose: Radiation dose: Total exam DLP = 402.13 mGy-cm. This CT exam was performed using one or more of the following dose reduction techniques: Automated exposure control, adjustment of the mA and/or kV according to patient size, and/or use of iterative reconstruction technique. FINDINGS: LOWER THORAX: Cardiomegaly. LIVER: Unremarkable. No gross lesion or ductal dilatation. GALLBLADDER AND BILE DUCTS: Unremarkable. PANCREAS: Unremarkable. No gross lesion or ductal dilatation. SPLEEN: Unremarkable. ADRENALS: Unremarkable. No mass. KIDNEYS AND URETERS: 1 centimeter nonobstructive calculus in left kidney. No hydronephrosis. No solid mass. VASCULATURE: Unremarkable. No aortic aneurysm. No aortic atherosclerotic calcification or mural plaque present. BOWEL: Mild colonic diverticulosis. No obstruction. No gross mural thickening. APPENDIX: Normal appendix. PERITONEUM: Unremarkable. No free fluid. No free air. LYMPH NODES: Unremarkable. No enlarged lymph nodes. BLADDER: Unremarkable. REPRODUCTIVE: Unremarkable. BONES: No acute fracture. OTHER FINDINGS: Small left inguinal hernia containing fat and small amount of fluid but slightly larger when status prior examination. IMPRESSION: Small left inguinal hernia containing fat and small amount of fluid but slightly larger when status prior examination. Nonacute findings above. No significant interval change otherwise.
[2019-01-30 09:51] VITALS: BP 147/75
--- NOTE | 2019-01-30 09:54 | CP.PCM.PCO ---
Additional Comments - Additional Comments Additional Comments: Pt seen and examined at bedside. L groin w/ wound, no drainage or foul smell. Pt in no acute distress. Spoke w/ Dr. Cruz from surgery and stated no surgical intervention for inguinal hernia, recommends Neosporin and local wound care to L groin. D/W Dr. Ward's [employer], Sal, dontrell to discharge back to [place]. Will continue to follow.
[2019-01-30] MEDS ORDERED: Multivitamin Therapeutic Tab PO SCH (10:00)
[2019-01-30] MEDS ORDERED: cefTRIAXone 1 GM/100 ML BAG IVPB SCH (10:00)
[2019-01-30] MEDS ORDERED: cefTRIAXone (Rocephin) 2 gm Inj IVPB SCH (10:00)
--- NOTE | 2019-01-30 10:50 | RAD ---
Date of service: 01/29/2019 HISTORY: abd pain COMPARISON: 11/30/2018 FINDINGS: LUNGS: The lungs are hyperinflated and there is peribronchial thickening with chronic changes in both lungs. No focal consolidation. PLEURA: No pleural effusions or pneumothorax. CARDIOVASCULAR: There is mild cardiomegaly. There is stable position left-sided unipolar permanent pacing device status post CABG no aortic atherosclerotic calcifications present. OSSEOUS STRUCTURES: Within normal limits for the patient's age. VISUALIZED UPPER ABDOMEN: Normal. OTHER FINDINGS: None. IMPRESSION: No active pulmonary disease. COPD.
[2019-01-30] MEDS ORDERED: Ipratropium 0.02% Inhal Soln (0.5 mg/2.5 ml) UD IH PRN (11:10)
--- NOTE | 2019-01-30 12:27 | CON ---
DATE: 01/30/2019 PULMONARY CONSULT NOTE REFERRING PHYSICIAN: Susie Ward MD REASON FOR CONSULT: Chronic lung disease and surgical clearance. HISTORY OF PRESENT ILLNESS: This is an 83-year-old male with past medical history significant for dementia, coronary artery disease, history of CABG, cardiac arrhythmia requiring pacemaker on anticoagulation, history of renal insufficiency, hypothyroidism, history of shingles in the past, restless leg syndrome, insomnia who came in to emergency room complaining of today history of left lower groin pain. Family had noticed the patient had open wounds on a left side of the lower abdomen over the side of where the patient has known hernia, they also reported some decrease in appetite. At this time, the patient is seen sitting up at bedside. No acute distress. Reports feeling well today. PAST MEDICAL HISTORY: As per history of present illness. ALLERGIES: LYRICA AND AMBIEN. SOCIAL HISTORY: Nonsmoker. No EtOH abuse. No illicit drug use. The patient is a skilled nursing resident. FAMILY HISTORY: No significant cardiopulmonary disease reported. MEDICATIONS: Reviewed. Xanax 0.25 mg every 8 hours p.r.n., Eliquis 5 mg twice a day, Lipitor 20 mg at dinner, Coreg 12.5 mg daily, Rocephin 1 g daily, Aricept 10 mg at bedtime, Neurontin 300 mg at bedtime, Namenda 10 mg daily, multivitamin 1 tab daily, Seroquel 12.5 mg daily, Seroquel 25 mg at bedtime, sodium chloride 0.9% 500 mL at 60 mL per hour, ocean nasal spray every 3 hours, spironolactone 25 mg daily and trazodone 50 mg at bedtime. REVIEW OF SYSTEMS: No headache, rhinitis, cough, shortness of breath, chest pain, nausea, vomiting, diarrhea, leg pain or leg swelling reported. Does report some tenderness on left lower quadrant. PHYSICAL EXAMINATION: GENERAL: No acute distress. VITAL SIGNS: Blood pressure 133/68, pulse 91, temperature 98.2, and oxygen saturation 95% on room air. HEENT: Moist mucous membranes. NECK: Supple. No JVD. LUNGS: Fair airflow bilaterally. CARDIOVASCULAR: S1 and S2. ABDOMEN: Soft. Mild tenderness on left quadrant. No organomegaly. EXTREMITIES: No bilateral lower extremity edema. NEUROLOGIC: Awake, alert and verbal. Following commands. Confused. LABORATORY DATA: Reviewed. WBC 6.4, RBC 4.07, hemoglobin 12.7, hematocrit 39.1, and platelets 207. PT 32.5, INR 2.93 and APTT 35.5. PO2 64. Venous blood gas pH 7.32. Venous blood gas PCO2 of 51. Venous blood gas HCO3 26.3 and FiO2 21. Sodium 133, potassium 4.4, chloride 90, carbon dioxide 33, anion gap 14, BUN 41, creatinine 1.0, GFR greater than 60, random glucose 162, calcium 9.0, total bilirubin 1.5, AST 22, ALT 15, alkaline phosphatase 58, total protein 6.9, albumin 1.3 and lipase 44. Urinalysis shows urine blood small urine urobilinogen 1.0, urine leukocyte esterase small urine RBC 10-15, urine WBC 5-10 and urine epithelial cell 10-12. Chest x-ray shows no active pulmonary disease, COPD. Abdomen and pelvis CT shows small left inguinal hernia. Continue small amount of fluid but slightly larger prior examination no acute findings. IMPRESSION AND PLAN: Left inguinal hernia, urinary tract infection, dementia with behavioral disorder, restless leg syndrome, history of atrial fibrillation, hypertension, hypothyroidism, insomnia, anemia, coronary artery disease, history of coronary artery bypass graft, and pacemaker. Pulmonary point of view, head of bed elevated at [address] the patient on p.r.n. inhaled bronchodilators. We will place the patient on Protonix for gastric prophylaxis. The patient currently on anticoagulation therapy. Fall precautions. Surgical consult note appreciated. States that the patient is not a surgical candidate at this time for inguinal hernia, local wound care to left groin. The patient was seen and examined with Dr. Black. Discussed assessment and plan as described above. The patient was seen and examined with Nannette Menchaca, nurse practitioner. Discussed assessment and plan as described above. Thank you for this consult and we will follow with you. Nannette Menchaca APN Nabeel Black MD
[2019-01-30] MEDS ORDERED: Pantoprazole 40 mg EC Tab PO SCH (22:00)
--- NOTE | 2019-01-30 22:26 | HP ---
DATE OF EXAM: 01/30/2019 CHIEF COMPLAINT: Urinary tract infection. HISTORY OF PRESENT ILLNESS: The patient was admitted to the hospital per outpatient surgical, which the patient had an appointment due to inguinal hernia and abdominal pain, it was suggested that the patient be admitted inpatient for surgery. PAST MEDICAL HISTORY: The patient has history of dementia, CHF, AFib, anxiety, and UTI. SOCIAL HISTORY: The patient is a patient at [facility], has dementia. is mostly at bedside. No history of smoking or alcohol abuse. FAMILY HISTORY: He has two daughters that are involved in care as well. ALLERGIES: THE PATIENT IS ALLERGIC TO LYRICA AND AMBIEN. REVIEW OF SYSTEMS: I saw the patient today at the bedside. He was alert, verbal, confused, asking for . Denying any pain. Denying shortness of breath, hematuria, hematochezia, fevers or chills. Denied dysuria. PHYSICAL EXAMINATION GENERAL: The patient appears chronically ill. VITAL SIGNS: Temperature 98.2, pulse rate 91, blood pressure 133/68, respirations 19, and 95% on room air. HEENT: Normocephalic and atraumatic. PERRLA. Mucous membranes are moist. NECK: Supple. No thyromegaly. RESPIRATORY: Clear to auscultation. No wheeze. No rhonchi. CARDIOVASCULAR: S1 and S2. No JVD. ABDOMEN: Soft and nondistended. No organomegaly. EXTREMITIES: The patient is moving all extremities. SKIN: Intact. No edema. NEUROLOGIC: The patient is alert and oriented x2 to 3 with some cognitive deficits. MEDICATIONS: Xanax 0.25 mg daily every 8 hours, Eliquis, Lipitor, Coreg daily. The patient continues on Rocephin IV piggyback, Aricept, Neurontin, Atrovent, multivitamin, Protonix 40 mg, Seroquel 25 mg. The patient is receiving IV fluids, Aldactone, Desyrel, and Lasix 40 mg. LABORATORY DATA: From 01/29/2019, white blood cells 6.4, hemoglobin 12.7, hematocrit 39 and platelet count 207. Sodium 133, BUN 41, creatinine 1 and GFR over 50. PT 32.5 and INR 2.93. Review of urinalysis; urine nitrite is negative; however, red blood cells 10 to 15, the patient treated for UTI. ASSESSMENT AND PLAN: This 83-year-old male is admitted with urinary tract infection, inguinal hernia, abdominal pain, dementia. Continues on Rocephin IV piggyback, normal saline fluid, Aldactone, gabapentin, Namenda. Continues on gastric and deep venous thrombosis prophylaxis. Cardiology was consulted for atrial fibrillation. Pulmonology consulted for shortness of breath. Also surgery was consulted for inguinal hernia. I reviewed notes. The patient is not a candidate for surgical manipulation or repair according to notes. Review of medications; BUN elevated at 41, we will continue same treatment . Creatinine 1, discontinue Lasix 40 mg. We will continue Aldactone 25 mg daily. We will plan for discharge once the patient is cleared by Cardiology and Pulmonology. ALL ABOVE NOTED , AGREED WITH BODY PRESS OPERATOR TREATMENT PLAN , EDUCATION DONE , D/D DONE WITH BODY PRESS OPERATOR AND STAFF , WILL CONT. SAME TREATMENT , Sal Tripp APN Susie Ward MD [place]
--- NOTE | 2019-01-30 22:38 | CON ---
DATE: 01/30/2019 REASON FOR THE CONSULT: I came to see the patient. I was called for consult for AFib, coronary artery disease, pacemaker for preoperative clearance, but the patient was discharged as he was told by the surgeon the patient is not a candidate for surgery, I could not see the patient. Nabeel Blair MD
--- NOTE | 2019-01-31 04:51 | DS ---
REASON FOR ADMISSION: Inguinal hernia, UTI, abdominal pain. HISTORY OF PRESENT ILLNESS: The patient is a patient at [facility]. He had a cellulitis boil to the lower groin and an inguinal hernia. He was on Bactrim for his cellulitis, [facility] jail; but the inguinal hernia, he was sent out for surgery for that. The outpatient doctor recommended that patient go inpatient for the procedure and that is why the patient was admitted to [facility]. Once he got in, the urinalysis revealed the patient also had a UTI. PAST MEDICAL HISTORY: UTI, hypertension, dementia, congestive heart failure, AFib. He has a pacemaker. He is on Eliquis. CAD with stenting. SOCIAL HISTORY: The patient lives in [facility]. and daughters are involved with care. FAMILY HISTORY: Mother and father, medical history is noncontributory. ALLERGIES: THE PATIENT IS ALLERGIC TO LYRICA, AMBIEN. REVIEW OF SYSTEMS: I saw the patient at bedside today. He was alert, verbal. Denied any chest pain, shortness of breath, abdominal pain, hematuria, hematochezia, fevers or chills. PHYSICAL EXAMINATION: VITAL SIGNS: noted , stable MEDICATION LIST: Please see HPI.noted by me LABORATORY DATA: Please see HPI. noted by me ASSESSMENT AND PLAN: Mr. Blade Escalona is an 83-year-old. This is a discharge plan for the patient. He was admitted yesterday on 01/29/2019, admitted inpatient to have a right groin inguinal hernia repairment due to complaints of pain. He was sent out from [facility] to outpatient surgery. Doctors suggested that patient have surgery inpatient and that is why the patient was admitted. Once the patient was admitted, urinalysis revealed the patient had UTI. He was seen, Infectious Disease was on the case. He received a dose of IV antibiotics. I saw the patient today. He was alert and verbal. He was also seen by Cardiology, Surgery and Gastroenterology also did see the patient. Unfortunately, the patient is not a candidate for inguinal hernia repair at this point. We will [facility] the [facility]. Medications were reviewed. The patient received IV antibiotics. The patient received IV normal saline. BUN was elevated at 27, but creatinine was 1. Lasix was discontinued 40 mg daily. Also the patient has taken Aldactone, we continued that. Continue all the patient's medications at bedside. We will discharge the patient today and follow up outpatient. ALL ABOVE NOTED , AGREED WITH LOSS PREVENTION COORDINATOR TREATMENT PLAN , EDUCATION DONE , D/D DONE WITH LOSS PREVENTION COORDINATOR AND STAFF , WILL CONT. SAME TREATMENT , Sal Tripp APN Susie Ward MD [facility]
== END 2019-01-30 14:42 ==
LOC: ED 18:10 → ERH 23:33 → 5RNO 01-30 03:42
PROVIDERS: ADMIT Internal Medicine; ATTEND Internal Medicine
DX: L03.314 Cellulitis of groin (principal); L02.224 Furuncle of groin; K40.90 Unilateral inguinal hernia, without obstruction or gangrene, not specified as recurrent; E03.9 Hypothyroidism, unspecified; F03.91 Unspecified dementia, unspecified severity, with behavioral disturbance; I13.0 Hypertensive heart and chronic kidney disease with heart failure and stage 1 through stage 4 chronic kidney disease, or unspecified chronic kidney disease; I50.9 Heart failure, unspecified; N18.9 Chronic kidney disease, unspecified; G25.81 Restless legs syndrome; N39.0 Urinary tract infection, site not specified; I25.10 Atherosclerotic heart disease of native coronary artery without angina pectoris; I48.91 Unspecified atrial fibrillation; Z95.1 Presence of aortocoronary bypass graft
CPT/HCPCS: 71045; 74177; 80053; 81001; 82803; 83690; 85025; 85610; 85730; 87040; 87086; 96374; 96376; 99284; G0378; J0696; J7040; Q9967